=== PATIENT | female | born 1940 | race Caucasian/White ===

== ENCOUNTER 2016-11-24 06:10 | Observation (INO) | payer MEDICARE ==
--- NOTE | 2016-11-12 20:00 | HP ---
PREOPERATIVE HISTORY AND PHYSICAL: DATE OF ADMISSION/SURGERY: 11/24/16 PROCEDURE: Left total shoulder reverse. CHIEF COMPLAINT: Left shoulder pain. HISTORY OF PRESENT ILLNESS: Nelly is a 76-year-old female who presents to the clinic for ongoing le ft shoulder pain and limited range of motion due to severe osteoarthritis and rotator cuff tear. Sh bony has a history of prior rotator cuff repair. She has failed conservative measures and has therefor e agreed to undergo a left total shoulder reverse with Dr. Buckley on 11/24/16. PAST MEDICAL HISTORY: 1. Aortic stenosis. 2. Hypertension. 3. Dyspnea. 4. Asthma. 5. Obesity. 6. Obstructive sleep apnea. 7. Hypercholesterolemia. 8. GERD. 9. Congestive heart failure. 10. Osteoarthritis of the left shoulder. PAST SURGICAL HISTORY: 1. Cholecystectomy in 1987. 2. Tubal ligation in 1975. 3. Trigger finger release x3 in the . 4. Carpal tunnel release in 1979. 5. Eyelid surgery in 1997. 6. Right knee surgery in 2005. 7. Etta fundoplication in 2006. 8. Left knee replacement in 2011. 9. Right total knee replacement in 2013. 10. Cataract removal in 2013. 11. Cardiac catheterization in 2006. The patient denies prior problems with anesthesia. MEDICATIONS: 1. Symbicort 160/4.5 mcg per ACT 1 puff once a day. 2. Crestor 5 mg 1 by mouth every day at bedtime. 3. Amlodipine besylate 5 mg 1 by mouth once a day. 4. Gabapentin 300 mg 1 by mouth at bedtime. 5. Torsemide 10 mg 1 to 2 tabs by mouth daily as directed. 6. Compression stockings, knee high stockings 20 to 30 mm. 7. Fish oil 1 by mouth once a day at night. 8. Amoxicillin 500 mg 4 tabs 1 hour before dental work for invasive GI or procedures. 9. Verapamil HCL ER 180 mg 1 by mouth twice a day. 10. Montelukast 10 mg 1 tablet by mouth daily. 11. Aldactone 25 mg 2 tabs daily. ALLERGIES: HYDROCHLOROTHIAZIDE, PROVERA, ATENOLOL, CARDIZEM CD, CATAPRES, PERCOCET, LIPITOR, and HY DRALAZINE. FAMILY HISTORY: Positive for cancer, diabetes, and heart disease. Father has had coronary artery d isease with CABG. Sister had a history of DVT in her leg and placement of a vena cava filter. SOCIAL HISTORY: The patient lives with her . She has never smoked. She drinks 1 to 2 drink s of alcoholic drinks per night. She denies illegal drug use. REVIEW OF SYSTEMS: A 14-point review of systems was reviewed with the patient and positive for apolinar pheral edema, hypertension, chest pain, shortness of breath with exertion, GERD, constipation, easy bruising, high cholesterol, otherwise negative. Negative for history of DVT, PE, or bleeding disorde r. PHYSICAL EXAMINATION GENERAL: A well-developed, well-nourished 76-year-old female, in no acute distress. Alert and orie nted x3. Appropriate mood and affect. VITAL SIGNS: Height 60, weight 197. Pulse 63, blood pressure 147/71. BMI 38.5. HEENT: Normocephalic, atraumatic. PERRLA. Throat clear. NECK: Supple. PULMONARY: Lungs clear to auscultation bilaterally. No wheezing, rhonchi, or rales. CARDIO: She has got a systolic murmur and some peripheral edema. She has got regular rate and rhyt hm. ABDOMEN: Positive bowel sounds. Soft, nontender. NEUROLOGIC: Alert and oriented x3. Cranial nerves grossly intact. Sensation intact to light touch distally. MUSCULOSKELETAL: Left upper extremity: Skin is intact. No obvious deformity of the shoulder. Tend erness to palpation over the joint line. Forward flexion to 90, abduction to 45. External rotation to 35, internal rotation to the lateral hip. Pain with rotator cuff testing. +2 radial pulse. Sen sation intact to light touch distally. DIAGNOSTIC STUDIES: MRI of the left shoulder revealed abundant tenderness of the rotator cuff with no obvious full thickness tear and advanced glenohumeral arthritis. IMPRESSION: Left shoulder severe osteoarthritis and rotator cuff tear. PLAN: The patient is scheduled to undergo a left total shoulder reverse with Dr. Buckley on 11/24/16 . She has been cleared by her PCP and client service associate. She will return to the clinic 10 to 14 days po stoperative followup and suture removal. A prescription for [place] was e-prescribed to the patient's pharmacy for postoperative pain management because she is allergic to PERCOCET. She was instructed to get nzok-bep-wrlgime stool softener for prevention of opiate-[place] [id number]/[facility] #: [id number]
[~2016-11-24 06:10] MED LIST: Buffered Lidocaine 1% SYR 3ML* 3 ML/SYR SYRINGE INTRADERM ONE; Famotidine IV* 10 MG/ML 2 ML (20 mg) IV ONE; Metoclopramide TAB* 10 MG PO ONE
[2016-11-24] MEDS ORDERED: Metoclopramide TAB* 10 MG ONE (06:16)
[2016-11-24] MEDS ORDERED: Famotidine IV* 10 MG/ML 2 ML (20 mg) ONE (06:16)
[2016-11-24] MEDS ORDERED: ceFAZolin 2 GM PREMIX (*) 2 GM/50 ML BAG IVPB ONE (06:16)
[2016-11-24] MEDS ORDERED: KETAMINE HCL* 50 MG/ML 10 ML VIAL ONE (06:54)
[2016-11-24] MEDS ORDERED: Cisatracurium* 2 MG/ML MDV 10 ML ONE (06:54)
[2016-11-24] MEDS ORDERED: Ketorolac INJ* 30 MG/ML 1 ML VIAL ONE (06:54)
[2016-11-24] MEDS ORDERED: Dexamethasone IV* 4 MG/ML 1 ML (4 MG) ONE (06:54)
[2016-11-24] MEDS ORDERED: Midazolam* 1 MG/ML 5 ML VIAL (5 MG) ONE (06:54)
[2016-11-24] MEDS ORDERED: fentaNYL* 50 MCG/ML 5 ML VIAL (250 MCG VIAL) ONE (06:54)
[2016-11-24] MEDS ORDERED: Propofol* 10 MG/ML 20 ML BTL IV PUSH ONE (06:54)
[2016-11-24] MEDS ORDERED: Phenylephrine INJ* 10 MG/ML 1 ML VIAL (10 MG) ONE (06:54)
[2016-11-24] MEDS ORDERED: Ondansetron INJ* 2 MG/ML VIAL ONE (06:54)
[2016-11-24] MEDS ORDERED: Lidocaine 2% PF * 5 ML VIAL ONE (06:54)
[2016-11-24] MEDS ORDERED: ROPIVACAINE 5 MG/ML 30 ML BTL (0.5%) ONE (06:55)
[2016-11-24] MEDS ORDERED: Bupivacaine 0.25% SDV* 30 ML ONE (07:29)
[2016-11-24] MEDS ORDERED: EPHEDrine (Pressors)* 50 MG/ML VIAL ONE (07:53)
[2016-11-24] MEDS ORDERED: Glycopyrrolate IV* 0.2 MG/ML 1 ML VIAL ONE (07:57)
[2016-11-24] MEDS ORDERED: HYDROmorphone INJ* 1 MG/ML CARPUJECT SYRINGE IV PRN (09:21)
[2016-11-24] MEDS ORDERED: Ondansetron INJ* 2 MG/ML VIAL IV PRN ×2 (09:21→10:27)
[2016-11-24] MEDS ORDERED: DiMENhydriNATE IV* 50 MG/ML VIAL IV PUSH PRN (09:21)
[2016-11-24] MEDS ORDERED: HYDROmorphone INJ* 1 MG/ML CARPUJECT SYRINGE ONE (09:47)
[2016-11-24] MEDS ORDERED: fentaNYL* 50 MCG/ML 2 ML VIAL (100 MCG VIAL) ONE ×2 (09:47→10:37)
[2016-11-24] MEDS ORDERED: Acetaminophen TAB* 325 MG PO PRN (10:27)
[2016-11-24] MEDS ORDERED: diPHENhydraMINE IV* 50 MG/ML 1 ml VIAL (BENADRYL) IV PRN (10:27)
[2016-11-24] MEDS ORDERED: Temazepam CAP* 15 MG PO PRN (10:27)
[2016-11-24] MEDS ORDERED: Morphine INJ* 2 MG/ML 1 ML CARPUJECT IV PRN (10:27)
[2016-11-24] MEDS: fentaNYL* 50 MCG/ML 2 ML VIAL (100 MCG VIAL) IV PRN ×3 (10:38→11:51)
[2016-11-24] MEDS ORDERED: HYDROcodone/ACETAMIN 5-325 MG* 1 TAB PO PRN (10:38)
[2016-11-24] MEDS ORDERED: Enoxaparin(*) 30 MG/0.3 ML SYR SUBCUT SCH (11:00)
--- NOTE | 2016-11-24 11:17 | RAD ---
INDICATION: Total left shoulder replacement surgery postoperative study. COMPARISON: Comparison is made with a prior x-ray study of the left shoulder from December 30, 2015. TECHNIQUE: 3 views of the left shoulder were obtained. FINDINGS: The patient is status post total left shoulder replacement surgery with a reversed polarity prosthesis. The bones and prostheses are in normal alignment. IMPRESSION: STATUS POST TOTAL LEFT SHOULDER REPLACEMENT SURGERY.
[2016-11-24] MEDS: HYDROcodone/ACETAMIN 5-325 MG* 1 TAB PO PRN (15:05)
[2016-11-24] MEDS: ceFAZolin 1 GM in Dextrose (*) 1 GM/50 ML BAG IVPB SCH (17:22)
[2016-11-24] MEDS ORDERED: CALCIUM MAGNESIUM PO SCH (18:00)
[2016-11-24] MEDS ORDERED: [UNRECOGNIZED DRUG - OTHER] PO SCH (18:00)
[2016-11-24] MEDS ORDERED: CMCS: Rosuvastatin (NF) 5 MG TAB PO SCH (18:00)
[2016-11-24] MEDS ORDERED: VITAMIN D PO SCH (18:00)
[2016-11-24] MEDS ORDERED: Montelukast Sodium TAB* 10 MG PO SCH (18:00)
[2016-11-24] MEDS: Verapamil SR CAP* 180 MG PO SCH (20:33)
[2016-11-24] MEDS: Ferrous Sulfate TAB* 325 MG PO SCH (20:33)
[2016-11-24] MEDS: Docusate CAP* 100 MG PO SCH (20:34)
[2016-11-24] MEDS ORDERED: Gabapentin CAP(*) 300 MG PO SCH (21:00)
--- NOTE | 2016-11-24 22:57 | CONS ---
HOSPITAL MEDICINE CONSULTATION REPORT: DATE OF CONSULT: 11/24/16 ATTENDING PHYSICIAN: Dr. Summer Buckley. CONSULTING PHYSICIAN: Dr. Srinivas Silverio (dictation provided by Ya Vinson NP). REASON FOR CONSULT: Medical co-management for a patient with reverse left shoulder surgery. HISTORY OF PRESENT ILLNESS: Ms. Burns is a 76-year-old female with a past medical history of bqpp-ol-iowxfgdo aortic stenosis; obstructive sleep apnea, on CPAP; chronic diastolic congestive heart failure, who presents to the hospital on 11/24/16 with plan for a left total shoulder reverse with Dr. Buckley. Please see the dictated H and P from Dr. Buckley for complete details. In brief, the patient had ongoing left shoulder pain due to severe osteoarthritis and had planned for surgery today. Ms. Burns states that prior to coming in to surgery, she has been feeling well. She did have an episode of bronchitis about 6 weeks ago, but states she recovered well from that with no acute symptoms currently. She also has a history of aortic stenosis which is mild as well as hypertension and diastolic congestive heart failure. For these issues, she has followed with Dr. Slaughter, who saw her preoperatively. He notes that her ejection fraction is 60% to 65% and that she has diastolic dysfunction with cfzi-wn-ykjajsue . I refer you to his note for complete details, but he does state that there are some adjustments to her medications recently to manage her volume status, sodium levels, and blood pressure. He thinks that with these changes, her dyspnea on exertion has improved. In addition to this, she has obstructive sleep apnea and does use CPAP and has brought it today. She has asthma, but states that she never needs to use her albuterol inhaler. PAST MEDICAL HISTORY: 1. Cvzb-mi-lzcprqih aortic stenosis. 2. Hypertension. 3. Asthma. 4. Obesity. 5. Obstructive sleep apnea, on CPAP. 6. Hyperlipidemia. 7. GERD. 8. Diastolic congestive heart failure, chronic. 9. Osteoarthritis of the left shoulder. PAST SURGICAL HISTORY: 1. Cholecystectomy in 1997. 2. Tubal ligation in 1975. 3. Trigger finger release x3 in the . 4. Carpal tunnel release, 1979. 5. Eyelid surgery, 1997. 6. Right knee surgery, 2005. 7. Etta fundoplication, 2006. 8. Left knee replacement, 2011. 9. Right total knee replacement, 2013. 10. Cataract removal, 2013. 11. Cardiac cath in 2006. The patient states there was no intervention at that time. MEDICATIONS: Outpatient are: 1. Symbicort 160/4.5 mcg once a day. 2. Amlodipine 5 mg p.o. q.a.m. 3. Calcium with D 1 cap p.o. q.p.m. 4. Gabapentin 100 mg 1 to 3 caps p.o. bedtime. 5. Singulair 10 mg p.o. q.p.m. 6. Rosuvastatin 5 mg q.p.m. 7. Spironolactone 25 mg p.o. daily. 8. Torsemide 10 mg p.o. daily. 9. Verapamil 180 mg p.o. b.i.d. ALLERGIES: To CLONIDINE, HYDRALAZINE, MEDROXYPROGESTERONE, OXYCODONE, ATORVASTATIN, ATENOLOL, VERAPAMIL, HYDROCHLOROTHIAZIDE, and CARDIZEM. FAMILY HISTORY: There is report that father had coronary artery disease with CABG. Has a sister who has had a history of DVT. SOCIAL HISTORY: The patient lives with her . There is no report of smoking. She drinks alcohol occasionally. She denies any illegal drug use. She states her , Yimi, is her healthcare proxy. REVIEW OF SYSTEMS: A 14-point review of systems was completed with Ms. Burns and all those mentioned above are negative. PHYSICAL EXAM: Vital Signs: Temperature 97.5, pulse rate 74, respiratory rate 18, O2 saturation 100% on room air, blood pressure 152/58. General: Ms. Burns is lying in the bed. She is in no acute distress. She is calm and cooperative to my examination. Neuro: She is alert, she is oriented x3. She moves all extremities equally. There is no facial asymmetry or focal weakness. Extraocular movements are intact. Heart: S1, S2. No murmur, rub, or gallop and regular. Lungs are clear to auscultation bilaterally with no accessory muscle use and good aeration. The abdomen is soft and nontender. Bowel sounds positive x4. Extremities: The patient has a sling to the left arm. There is no swelling in the bilateral lower extremities. Skin is intact and the incision site was not assessed today. LABORATORY DATA: Preoperatively, WBC on 11/12/16, 8.1, hemoglobin 14.3, hematocrit 42, platelet count 233. Sodium 132, potassium 3.9, chloride 95, serum bicarbonate 28, BUN 18, creatinine 1.00, glucose 91. ASSESSMENT AND PLAN: Ms. Burns is a 76-year-old female with past medical history of rcre-iq-crkaqwtw aortic stenosis, hypertension, diastolic congestive heart failure, and obstructive sleep apnea, who presents today to the hospital for an elective left reverse shoulder surgery with Dr. Buckley. Our recommendations are as follows: 1. Postop day #0 status post shoulder surgery: Management will continue to be per Orthopedics. The patient will have pain medications p.r.n. Hemoglobin will be monitored. She will have a bowel regimen and therapy as per Orthopedics. 2. Rdun-hp-nmabovus aortic stenosis: I appreciate the note from Dr. Slaughter and he notes that the patient should avoid any excess after load reducing agents and that her volume status should be monitored closely. At this point, she appears euvolemic, but we certainly be vigilant to any fluid overload and use diuretics as needed. 3. Diastolic congestive heart failure: Again, the patient appears euvolemic at this point. She is on torsemide and we will continue that for now, but we will be monitoring her labs closely. 4. Obstructive sleep apnea: Continue CPAP. 5. Hypertension: Continue amlodipine, torsemide, verapamil, and Aldactone, and typically would hold these diuretics, but I think given her history, it will be important to continue those and monitor her labs closely. 6. Asthma: Continue montelukast and Symbicort. 7. DVT prophylaxis: Per Ortho. SCDs have been ordered as well as Lovenox. 8. Code status is full code. 9. Disposition per Ortho. TIME SPENT: Approximately 60 minutes was spent on the consultation of this patient, more than half time spent with the patient at the bedside reviewing the events leading up to this hospitalization, performing the physical examination, and reviewing [place] [id number]/[facility] #: [id number] PARUL
[2016-11-25] MEDS: ceFAZolin 1 GM in Dextrose (*) 1 GM/50 ML BAG IVPB SCH ×2 (00:37→07:29)
--- NOTE | 2016-11-25 02:03 | OP ---
DATE OF OPERATION: 11/24/16 - ROOM #335 DATE OF : 44 SURGEON: Summer Buckley MD ASSISTANTS: 1. SIMIN Amato 2. SIMIN Nicholas ANESTHESIOLOGIST: Noé Edgar MD ANESTHESIA: General. PRE-OP DIAGNOSIS: Left shoulder advanced glenohumeral arthritis with rotator cuff insufficiency. POST-OP DIAGNOSIS: Left shoulder advanced glenohumeral arthritis with rotator cuff insufficiency. OPERATIVE PROCEDURE: Left reverse shoulder arthroplasty and open biceps tenodesis. COMPLICATIONS: None. ESTIMATED BLOOD LOSS: 200 cc. OUTPUTS: Include 1 drain which will be taken out postop day #1. IMPLANTS USED: Tornier Aequalis reversed 2 centered Glenosphere size 36 mm with a 25 mm threaded base plate with a length of 25, Aequalis size 4B stem with a centered reverse tray, and a size 9 mm poly. INDICATIONS: Nelly is a 76-year-old female with persistent left shoulder pain that is refractory to conservative management. She has advanced glenohumeral arthritis, bone on bone arthritis with some rotator cuff arthropathy indicated on the MRI. Risks and benefits of surgery were discussed at length and included but are not limited to bleeding, infection, damage to nerves, vessels, surrounding structures, fracture, stiffness, persistent pain, incomplete relief of symptoms, need for further surgery, dislocation, risks of anesthesia, postoperative hematoma, as well as DVT. She has elected to proceed. After obtaining medical preoperative risk assessment, she has been optimized for surgery. DESCRIPTION OF PROCEDURE: The patient was greeted in the preoperative area by the attending surgeon. The correct extremity was marked, consent was confirmed. The patient was brought back to the operating suite. She was placed in supine position on the operating table. She then underwent general anesthesia endotracheal intubation after which a Buchanan catheter was placed. She was carefully positioned on the bed. All bony prominences were padded. The left arm was then examined. She was able to be passively forward flexed to about 130 degrees, externally rotated to about 35 degrees, abducted to about 90 degrees. The left shoulder was prepped and draped in the usual sterile fashion , beginning with a pre-scrub of chlorhexidine soap and alcohol wipe and a final prep of ChloraPrep. After appropriate surgical pause indicating side and site of procedure, administration of antibiotics, a deltopectoral incision was made through the skin. The soft tissues were carefully dissected to expose the deltoid. The fat stripe was identified and the cephalic vein was identified. At this point, the dissection was taken bluntly in between the interval between the pec and the deltoid and the cephalic vein was taken laterally. A blunt Hohmann was placed just superior to the coracoid. Kolbel retractors were used for deltopectoral retraction which exposed the anterior aspect of the shoulder. There was abundant synovitis that was apparent. There were large areas of cyst, one was in the biceps tendon sheath itself. The clavipectoral fascia was carefully released. The short head of the biceps was identified and blunt dissection was done underneath to allow for subscap release. The pec was then released in the proximal aspect about 1 cm. At this point, the biceps was then tenodesed using a heavy nonabsorbable suture. The biceps was then tenotomized. It was followed up into the groove. The cysts were carefully decompressed. There was abundant synovitis that was apparent. The 3 sutures were identified and Bovie'd. The large soft tissue mass was carefully removed and sent for pathology. The subscap was identified and carefully released in its entirety off the lesser tuberosity. This was then tagged for later retraction. As this was done, there was gentle external rotation of the arm. Portions of the supraspinatus were still intact. These were carefully released and some portions were protected. The shoulder was then carefully dislocated. Prior to dislocation, the CA ligament was released as well. The entire head was exposed. It was found to have complete absence of cartilage. There were inferior osteophytes and the head was slightly misshapen. The neck cut was then marked out and then the sagittal saw was used to make the cut. The cut was free handed. The cut was slightly more steep than anticipated, so the excess bone had to be removed using the rongeur. The canal was then carefully accessed using the canal finder. The sizing guides were used initially a size 4 was identified. The trial stems were then rasped and impacted into place. A size 4 was found to have a good fit. This was then coplaned to remove any excess bone and bony edges. This had a good fit. Once the humeral portion was completed, attention was directed to the glenoid. The protected cap was placed on the humeral stem and the humerus was then placed posteriorly in the shoulder. The glenoid was then exposed, initially using a posterior retractor as well as a blunt Hohmann. The biceps stump was identified and sharply removed. The glenohumeral ligaments were then carefully released on the undersurface of the subscap with care not to drift anteriorly, thus compromising the vessels. As the subscap was more mobilized, it was then placed back into the wound and a neck retractor was used to expose the anterior aspect of the glenoid. Using a needle-tip Bovie at this point, the excess labrum and soft tissues were carefully removed with tension on the soft tissues inferiorly to protect the neuro-vascular structures. The soft tissue was carefully elevated to expose the whole aspect of the glenoid. After this was done, a provisional cross-marking was done to gretel the superior/ inferior and the anterior/posterior aspects of the glenoid. The size 25 mm guide was then placed on the inferior aspect approximately 10 to 11 mm proximal from the inferior aspect of the glenoid. The pin was drilled and was found to fit appropriately. This was then over-reamed with a 25 mm reamer and then hand reamed for a 36 mm Glenosphere. The bone quality was not optimal and the osteophytes in the anterior aspect of the glenoid were then carefully removed. At this point, the large 8 mm drill peg was then drilled using the previously drilled pin as a cannulation system. Then, the 6.5 mm drill bit was drilled to about a depth of 25 mm. This was then measured. Then a size 25 mm threaded base plate was chosen. This screw hole was tapped and then the implant was placed with excellent purchase. The 4 locking screws were drilled and then filled, first beginning with the superior and inferior ones and then finally the anterior and posterior ones. Excellent purchase was obtained. The Glenosphere was then brought into the field and carefully impacted into position , and then the set screw was used to best worker with a good fit. At this point, the retractors were removed and the attention was directed to the humerus. The stem was checked again and it was found to be somewhat loose. Therefore, it was sequentially tested again beginning with a size 3 stem and then to a size 4. This allowed for again a press-fit. Any excess bone was removed. The centered base plate was then placed. After this, a size 6 mm poly was used. The shoulder was reduced and taken through a range of motion. There was slightly more shuck than I appreciated, therefore, a size 9 poly was then trialed and this was found to have excellent shuck and good fit. She was able to be forward flexed to about 150, externally rotated to 80 degrees, abduct easily to 90 degrees. At this point, the final stem was chosen, a size 4B with a centered tray, and a 9 mm poly. The implants were prepared at the back table by the attending surgeon. Three drill holes were placed into the humeral shaft for subscap repair after final implants were placed. Final implants were impacted in place and then brought in and gently impacted with good purchase into the humerus. After this was complete, the shoulder was reduced. The wound was then copiously irrigated with sterile saline, after which the subscap was repaired by passing through these brief predrilled #5 Ethibond sutures through the subscap in a horizontal mattress configuration. These were tied down. This allowed for external rotation of approximately 50 degrees. The wound was copiously irrigated again. At this point, a drain was placed and then the wound was irrigated once more. Then, the deltopectoral interval was closed with heavy nonabsorbable suture. The wound was irrigated yet again and finally the wound was closed in layers with 2-0 Vicryl and 3-0 Monocryl. Sterile dressings were applied. 30 cc of 0.25% Marcaine were injected all around the incision. She was placed in a Cryo/Cuff and in a sling. She was awoken from anesthesia and transferred to PACU in stable condition. POSTOPERATIVE PLAN: She will be admitted for a day for pain control as well as watching the drain. She did not obtain a block, so we will monitor her pain very carefully. She will obtain x-rays in the postanesthesia area. She will receive 24 hours of perioperative antibiotics. Buchanan was discontinued on postop #1. DVT prophylaxis will be heparin and SCDs while inhouse, but she will go home due to no previous personal or family history. CC: PCP, Liliana Dickerson MD* [id number]/[facility] #: [id number] PARUL
[2016-11-25] MEDS: HYDROcodone/ACETAMIN 5-325 MG* 1 TAB PO PRN ×2 (02:58→10:28)
[2016-11-25 07:02] LABS: Hematocrit 31 % (35-47); Hemoglobin 10.8 g/dl (12.0-16.0)
[2016-11-25 07:17] LABS: BUN/Creatinine Ratio 16.7 (8-20); Calcium 8.7 mg/dL (8.6-10.3); EGFR African American 101.8 (>60); EGFR Non-African American 79.2 (>60); Potassium 4.2 mmol/L (3.5-5.0)
[2016-11-25] MEDS ORDERED: Vitamin THERAPEUTIC TAB PO SCH (09:00)
[2016-11-25] MEDS ORDERED: Spironolactone TAB* 25 MG PO SCH (09:00)
[2016-11-25] MEDS ORDERED: amLODIPine TAB* 5 MG PO SCH (09:00)
[2016-11-25] MEDS ORDERED: Enoxaparin(*) 30 MG/0.3 ML SYR SUBCUT SCH (09:00)
[2016-11-25] MEDS ORDERED: Torsemide TAB* 20 MG PO SCH (09:00)
[2016-11-25] MEDS ORDERED: Mometasone/Formoter 200/5 MDI INH SCH (09:00)
[2016-11-25] MEDS: Docusate CAP* 100 MG PO SCH (09:17)
[2016-11-25] MEDS: Ferrous Sulfate TAB* 325 MG PO SCH (09:17)
[2016-11-25] MEDS: Verapamil SR CAP* 180 MG PO SCH (09:18)
--- NOTE | 2016-11-25 09:46 | PN ---
Progress Note - Progress Note SOAP: Subjective: []Patient seen at bedside. Working with PT and OT. Pain well managed. Hopes to go home this afternoon. Objective: [] Vital Signs Temp 97.9 F 11/25/16 07:36 Pulse 63 11/25/16 07:36 Resp 16 11/25/16 07:36 BP 150/65 11/25/16 07:36 Pulse Ox 94 11/25/16 07:36 Intake & Output 11/24/16 11/25/16 11/25/16 18:59 06:59 18:59 Intake Total 1915 1837 105 Output Total 100 1500 200 Balance 1815 337 -95 Intake: IV Fluids 1155 917 105 LR 1100 NS (0.9%) 867 50 abx 55 Oral 760 920 Output: Hemovac Amount #1 250 Buchanan 100 1250 200 Laboratory Results - last 24 hr 11/25/16 11/25/16 06:53 06:53 Hgb 10.8 L Hct 31 L Sodium 125 L Potassium 4.2 Chloride 95 L Carbon Dioxide 24 Anion Gap 6 BUN 12 Creatinine 0.72 Est GFR ( Amer) 101.8 Est GFR (Non-Af Amer) 79.2 BUN/Creatinine Ratio 16.7 Glucose 171 H Calcium 8.7 Left shoulder with some scant bloody drainage around her drain, otherwise dressing dry moving fingers well, full sensation, neuro intact Hemovac drain pulled, tip intact Assessment: []s/p Left reverse total shoulder arthroplasty POD #1 Plan: []PT/OT today Discharge home today after lunch Follow up as scheduled with Dr. Buckley
--- NOTE | 2016-11-25 12:05 | PN ---
Progress Note - Progress Note Note: pt seen and examined this AM. doing well. pre op pain is gone. some soreness. drain in place. afebrile. NAD, AAOx3. on O2. left shoulder dressing in place. SILT grossly distally. 2+ radial pulse. able to flex/ext digits. A/P s/p L shoulder reverse d/c drain today. follow labs. PT today. no active ROM. passive FF to 90, abd to 90, ER to 45. potential d/c today when medically stable
[2016-11-25 13:56] VITALS: BP 161/56
--- NOTE | 2016-11-26 01:52 | DS ---
DISCHARGE SUMMARY: DATE OF ADMISSION: 11/24/16 DATE OF DISCHARGE: 11/25/16 ATTENDING PHYSICIAN: Summer Buckley MD ADMISSION DIAGNOSIS: Left shoulder advanced glenohumeral arthritis with rotator cuff insufficiency. DISCHARGE DIAGNOSIS: Left shoulder advanced glenohumeral arthritis with rotator cuff insufficiency. SURGERY PERFORMED: Left reversed shoulder arthroplasty and open biceps tenodesis. HOSPITAL COURSE: The patient is a 76-year-old female with persistent left shoulder pain due to advanced glenohumeral [id number] osteoarthritis and rotator cuff arthropathy. The patient failed conservative management and elected to proceed with surgical intervention. She was taken to the operating room under the care of Dr. Buckley on the date of 11/24/16 for the aforementioned procedure. The patient tolerated the procedure well and left the operating room in stable condition. Postoperatively, she progressed satisfactorily with her PT and OT goals. Her pain was well managed and she had no medical problems postoperatively. Her pain was well managed with oral pain medications and she felt stable for discharge home. Her condition medically and orthopedically was stable and she was discharged on the day of 11/25/16. PHYSICAL EXAMINATION: The patient is alert and oriented x3. She is in no significant pain. Her shoulder dressings were removed with no noted drainage. Her Hemovac drain was discontinued on postoperative day #1 without any difficulties. Her neurovascular status is intact in the left upper extremity. Her sling is comfortable. DISCHARGE MEDICATIONS: The patient will continue with her regular home medications. She is prescribed [place] 5/325 one to two tabs p.o. q.3 hours p.r.n. pain. She will follow up in the office as scheduled with Dr. Buckley. If the patient notices any increased pain in the shoulder, swelling, redness, drainage, any noted fever or chills, the office will be contacted prior to her scheduled appointment. SIMIN LADD [id number]/CPS #: [id number] MTDD
== END 2016-11-25 14:20 | disposition home or self-care (01) ==
LOC: INTOOBSV 06:10 → AA 06:10 → SSU 12:39
PROVIDERS: ADMIT Orthopaedic Surgery; ATTEND Orthopaedic Surgery
PROC: 0RUK0JZ Supplement Left Shoulder Joint with Synthetic Substitute, Open Approach (ICD-10-PCS; principal; 2016-11-24 07:30)
DX: M19.012 Primary osteoarthritis, left shoulder (principal); I35.0 Nonrheumatic aortic (valve) stenosis; J45.909 Unspecified asthma, uncomplicated; E66.9 Obesity, unspecified; G47.33 Obstructive sleep apnea (adult) (pediatric); E78.00 Pure hypercholesterolemia, unspecified; K21.9 Gastro-esophageal reflux disease without esophagitis; I11.0 Hypertensive heart disease with heart failure; I50.9 Heart failure, unspecified; Z88.8 Allergy status to other drugs, medicaments and biological substances; Z79.899 Other long term (current) drug therapy
CPT/HCPCS: 36415; 80048; 85014; 85018; 88304; 88311; A9270-GY; C1713; C1776; G0378; G8978-GP-CH; G8979-GP-CH; G8980-GP-CH; G8987-GO-CK; G8988-GO-CJ; J0690; J1100; J1170; J1650; J1885; J2250; J2405; J2704; J2795; J3010

== ENCOUNTER 2018-08-11 11:20 | Inpatient (IN) | payer MEDICARE ==
--- NOTE | 2018-08-11 11:44 | ED ---
Shortness of Breath - HPI Summary HPI Summary: Patient is a 77 y/o F w/ c/o SOB and LE edema. She states that Sx onset two weeks ago and have progressively worsened. Patient reports that she went to see Dr. Slaughter two days ago, blood work was done and her warfarin was increased. Patient was notified this morning that she had an elevated d-dimer and that she should come to the ED. She states she is capable of ambulating but notes it will exacerbate her SOB. Chest pain, cough, and fever are denied. On triage, pain is denied. Nothing else is noted to aggravate/alleviate Sx. Home medications and allergies are reviewed. - History of Current Complaint Chief Complaint: EDShortnessOfBreath Hx Obtained From: Patient Onset/Duration: Lasting Weeks - two weeks ago, Still Present, Worse Since - progressively Timing: Constant Current Severity: None - pain denied Aggrevating Factors: Other - ambulation Alleviating Factors: Nothing Associated Signs & Symptoms: Edema - LE - Allergy/Home Medications Allergies/Adverse Reactions: Allergies Allergy/AdvReac Type Severity Reaction Status Date / Time atenolol Allergy Coughing Verified 08/11/18 12:59 atorvastatin [From Lipitor] Allergy Leg Cramps Verified 08/11/18 12:59 clonidine Allergy Rash Verified 08/11/18 12:59 diltiazem Allergy Coughing Verified 08/11/18 12:59 hydralazine Allergy Unknown Verified 08/11/18 12:59 Reaction Details hydrochlorothiazide Allergy Coughing Verified 08/11/18 12:59 medroxyprogesterone Allergy Unknown Verified 08/11/18 12:59 [From Provera] Reaction Details oxycodone Allergy Itching Verified 08/11/18 12:59 rosuvastatin [From Crestor] Allergy Leg Cramps Verified 08/11/18 12:59 verapamil [From Covera-HS] Allergy Coughing Verified 08/11/18 12:59 PMH/Surg Hx/FS Hx/Imm Hx Endocrine/Hematology History: Denies: Hx Diabetes, Hx Sickle Cell Disease Cardiovascular History: Reports: Hx Angina, Hx Cardiomegaly, Hx Hypercholesterolemia, Hx Hypertension, Hx Valvular Heart Disease - Aortic stenosis, Other Cardiovascular Problems/Disorders - heart murmur Denies: Hx Pacemaker/ICD Respiratory History: Reports: Hx Asthma - QUESTIONABLE, Hx Sleep Apnea - current CPAP user, Other Respiratory Problems/Disorders - Chronic Cough GI History: Reports: Hx Gastroesophageal Reflux Disease - NOT ON DAILY MEDS HAD SURGERY, Hx Hiatal Hernia - had surgery for this over 10 years ago History: Reports: Hx Renal Disease - abnormal gfr Musculoskeletal History: Reports: Hx Arthritis - KNEES HANDS FEET, Hx Tendonitis - arms bi-lat Denies: Hx Osteoporosis Sensory History: Reports: Hx Cataracts - surgery about 3 yrs ago both eyes, Hx Contacts or Glasses - GLASSES Denies: Hx Hearing Aid Opthamlomology History: Reports: Hx Cataracts - surgery about 3 yrs ago both eyes, Hx Contacts or Glasses - GLASSES Psychiatric History: Reports: Hx Depression Denies: Hx Panic Disorder - Cancer History Hx Chemotherapy: No Hx Radiation Therapy: No - Surgical History Surgery Procedure, Year, and Place: 1949 TONSILECTOMY, TUBAL LIGATION 1975 [facility], 1987 GALLBLADDER REMOVED [facility], THREE TRIGGER FINGER -LUZ CARPAL TUNNEL [facility],EYE LIFT [facility] ,RT KNEE ARTHROSCOPY [facility],HIATAL HERNIA- ESOPHAGEAL WRAP [facility]-BILATERAL KNEE REPLACEMENT 08/30/12 AND 02/2014-BILATERAL CATARACTS 2014 Hx Anesthesia Reactions: Yes - HORID HEADACHE SEVERAL WKS AFTER BTL Infectious Disease History: No Infectious Disease History: Reports: Hx Hepatitis Denies: Hx of Known/Suspected MRSA, Traveled Outside the [place] in Last 30 Days - Family History Known Family History: Positive: Hypertension - mother, sisters - Social History Alcohol Use: Daily Alcohol Amount: 2/DAY Substance Use Type: Reports: None Smoking Status (MU): Never Smoked Tobacco Have You Smoked in the Last Year: No Review of Systems Negative: Fever Negative: Chest Pain Positive: Shortness Of Breath. Negative: Cough Positive: Edema - LE All Other Systems Reviewed And Are Negative: Yes Physical Exam - Summary Physical Exam Summary: Appearance: Well appearing, no pain distress Skin: warm, dry, reflects adequate perfusion Head/face: normal Eyes: EOMI, TEJAL ENT: normal Neck: supple, non-tender Respiratory: CTA, breath sounds present Cardiovascular: tachycardia, pulses symmetrical Abdomen: non-tender, soft Bowel: present Musculoskeletal: normal, strength/ROM intact Neuro: normal, sensory motor intact, A&Ox3 Triage Information Reviewed: Yes Vital Signs On Initial Exam: Initial Vitals Temp Pulse Resp BP Pulse Ox 99.2 F 110 20 171/84 93 08/11/18 11:21 08/11/18 11:21 08/11/18 11:21 08/11/18 11:21 08/11/18 11:21 Vital Signs Reviewed: Yes Diagnostics - Vital Signs Vital Signs Temp Pulse Resp BP Pulse Ox 08/11/18 11:21 99.2 F 110 20 171/84 93 - Laboratory Result Diagrams: 08/11/18 13:35 08/11/18 13:35 Lab Statement: Any lab studies that have been ordered have been reviewed, and results considered in the medical decision making process. - CT CTA CHEST/THORAX CT Interpretation Completed By: Radiologist Summary of CT Findings: CTA CHEST/THORAX IMPRESSION: 1. LARGE BILATERAL PULMONARY EMBOLI. 2. RIGHT VENTRICULAR ENLARGEMENT. THIS REPORT WAS REVIEWED BY ED PHYSICIAN. - EKG 1153 Cardiac Rate: NL - rate of 93 bpm EKG Rhythm: Sinus Rhythm Summary of EKG Findings: EKG showed sinus rhythm with rate of 93, right bundle branch block. Re-Evaluation - Re-Evaluation First Eval Re-Evaluation Time: 12:28 Comment: 1228 Dr. Bazan office was called, Dr. Slaughter is not in. Patient's old EKG will be faxed over. Second Eval Re-Evaluation Time: 13:42 Comment: Discussed ICU admission, patient is agreeable Course/Dx - Course Course Of Treatment: Patient is a 77 y/o F w/ c/o SOB and LE edema. She states that Sx onset two weeks ago and have progressively worsened. Patient reports that she went to see Dr. Slaughter two days ago, blood work was done and her warfarin was increased. Patient was notified this morning that she had an elevated d-dimer and that she should come to the ED. She states she is capable of ambulating but notes it will exacerbate her SOB. Chest pain, cough, and fever are denied. On physical exam, patient is noted to be tachycardic. EKG showed sinus rhythm with rate of 93, right bundle branch block. Bloodwork/UA was obtained. CTA CHEST/THORAX IMPRESSION: 1. LARGE BILATERAL PULMONARY EMBOLI. 2. RIGHT VENTRICULAR ENLARGEMENT. Dr. Arzate was called, patient's case was discussed. Dr. Arzate states he will come to ED to evaluate patient. Dr. Arzate arrived in ED, discussed patient's case and plan of treatment. Heparin drip to be started, echocardiogram ordered. Dr. Arzate and Dr. Flores discussed patient's case. Dr. Arzate states he will admit patient to ICU, TPA to be given. Patient is agreeable with admission to ICU. - Diagnoses Differential Diagnosis/HQI/PQRI: Positive: Asthma, CHF, Pneumonia, Pneumothorax , Pulmonary Embolism Provider Diagnoses: Bilateral pulmonary embolism - Physician Notifications Discussed Care of Patient With: Justyn Castellanos Time Discussed With Above Provider: 13:07 Instructed by Provider To: Other - Dr. Castellanos called to communicate the results of CTA chest/thorax at 1307. 1314 - Dr. Arzate was called, patient's case was discussed. Dr. Arzate states he will come to ED to evaluate patient. 1316 - Dr. Bull was called with regards to the patient's case, he states to call back after Dr. Arzate evaluates patient 1320 - Dr. Arzate arrived in ED, discussed patient's case and plan of treatment. Heparin drip to be started, echocardiogram ordered. 1330 - Dr. Arzate discussed his evaluation of patient, Dr. Flores to be contacted. 1334 - Dr. Arzate and Dr. Flores discussed patient 's case. 1340 - Dr. Arzate states he will admit patient to ICU, TPA to be given. - Critical Care Time Critical Care Time: 30-74 min - 30 minutes Discharge - Sign-Out/Discharge Documenting (check all that apply): Patient Departure - admit - Discharge Plan Condition: Good Disposition: ADMITTED TO [facility] - Billing Disposition and Condition Condition: GOOD Disposition: Admitted to [facility] - Attestation Statements Document Initiated by Dieter: Yes Documenting Scribe: ANA GARCIA Provider For Whom Dieter is Documenting (Include Credential): PEMA ISABEL MD Scribe Attestation: ANA Dangelo , scribed for PEMA ISABEL MD on 08/11/18 at 1644. Scribe Documentation Reviewed: Yes Provider Attestation: The documentation as recorded by the ANA [place] accurately reflects the service I personally performed and the decisions made by me, PEMA ISABEL MD
[2018-08-11] MEDS ORDERED: Aspirin 81 mg CHEW TAB* 81 MG TAB.CHEW PO ONE (12:28)
[2018-08-11] MEDS ORDERED: Iodixanol* (CONTRAST) 320 MG/ML 100 ML SDV IV ONE (12:36)
[2018-08-11 13:19] LABS: Urine Appearance Cloudy; Urine Blood Negative (Negative); Urine Color Yellow; Urine Ketones Negative (Negative); Urine Protein Negative (Negative); Urine Specific Gravity 1.005 (1.010-1.030); Urine Urobilinogen Negative (Negative)
[2018-08-11] MEDS ORDERED: Heparin DRIP 25,000 UNITS(*) 25,000 UNITS/500 ML BAG ONE (13:24)
[2018-08-11] MEDS ORDERED: Heparin VIAL(*) 5000 UNITS/ML VIAL (FIVE THOUSAND) IV PRN (13:35)
[2018-08-11] MEDS ORDERED: Alteplase* 100 MG in PREMIX* 100 ML IVPB ONE (13:40)
[2018-08-11] MEDS ORDERED: Alteplase* 100 MG VIAL ONE (13:41)
[2018-08-11] MEDS: Heparin DRIP 25,000 UNITS(*) 25,000 UNITS/500 ML BAG IV SCH (13:48)
[2018-08-11 14:02] LABS: EGFR Non-African American 53.4 (>60)
[2018-08-11 14:14] LABS: Hematocrit 35 % (35-47); Hemoglobin 12.4 g/dl (12.0-16.0); Mean Corpuscular HGB Conc 35 g/dl (31-36); Mean Corpuscular Hemoglobin 32 pg (27-31); Mean Corpuscular Volume 92 fL (80-97); Mean Platelet Volume 8.1 fL (7.4-10.4); Platelet Count 197 10^3/ul (150-450); Red Blood Count 3.85 10^6/ul (4.00-5.40); Red Cell Distribution Width 14 % (10.5-15); White Blood Count 8.3 10^3/ul (3.5-10.8)
--- NOTE | 2018-08-11 15:57 | ECHO ---
Patient: AMPARO BYRNE [facility] Rec#: [id number] : 1940 Date: 08/11/2018 Age: 77y Height: 152 cm / 59.8 in Weight: 90.7 kg / 199.9 lbs Sex: F BSA: 1.9 Room#: ED 3 Admit Date#: 08/11/2018 Type: Inpatient Referring: Eddie Dobbs Reading: Jill Flores MD [employer] Worker: Nancy Caldera RN RDCS CC: Maryjo Dickerson MD CC: Oziel Slaughter MD Transthoracic Echocardiogram Indication: Pulmonary embolism BP: 161/89 HR: 84 Rhythm: NSR Findings History: HTN, HLD, , LUZ MARIA. This is a LIMITED exam to assess RV function performed in the ED with Dr. Flores and Dr. Pradip Arzate at the bedside. Technical Comments: The study quality is fair. The study is technically limited due to patient body habitus. Completed at 1410. Left Ventricle: The left ventricular chamber size is normal. Moderate concentric left ventricular hypertrophy is observed. Global left ventricular wall motion and contractility are within normal limits. The left ventricle appears hyperdynamic. The estimated ejection fraction is greater than 65%. There is septal flattening of the interventricular septum consistent with right ventricular volume or pressure overload. Right Ventricle: The right ventricle is moderately dilated. The right ventricular global systolic function is moderately reduced. Conclusions Limited study. Moderate concentric left ventricular hypertrophy is observed. Global left ventricular wall motion and contractility are within normal limits. The left ventricle appears hyperdynamic. The estimated ejection fraction is greater than 65%. There is septal flattening of the interventricular septum consistent with right ventricular volume or pressure overload. The right ventricle is moderately dilated. The right ventricular global systolic function is moderately reduced, the apex is severely hypokinetic, the base moves well (Fajardo's sign). Recent offic echo of 3/30/18 showed EF 60-65%, normal RV systolic function and mild RV chamber dilatation. Measurements Name Value Normal Range RVIDd (AP) 2D 3.9 cm (0.9 - 2.6) IVSd (2D) 1.3 cm (0.6 - 1) LVPWd (2D) 1.3 cm (0.6 - 1) LVIDd (2D) 4 cm (3.6 - 5.4) LVIDs (2D) 2.4 cm - LV FS (2D) 40 % (25 - 45)
[2018-08-11] MEDS: Gabapentin CAP(*) 300 MG PO SCH (17:54)
[2018-08-11] MEDS: Potassium Chlor TAB* 20 MEQ TAB.ER PO SCH ×2 (19:40→23:26)
--- NOTE | 2018-08-11 20:47 | HP ---
ADMISSION HISTORY AND PHYSICAL: DATE OF ADMISSION: 08/11/18 REASON FOR ADMISSION: Multiple pulmonary emboli with right heart strain. HISTORY OF PRESENT ILLNESS: The patient is a 77-year-old white female with a history of hypertension and a recent (one month) history of increasing SOB, which was being being evaluated by Dr. Slaughter. The patient was brought to the emergency room with the same symptomatology and a CTA of the chest revealed multiple bilateral pulmonary emboli. Cardiac ultrasound in the ED revealed an enlarged right ventricle with RV hypokinesis and the patient was given alteplase and started on a heparin infusion and brought to the intensive care unit. On arrival to the ICU, the patient was breathing comfortably and was oxygenating satisfactorily on nasal O2. There is no Hx trauma, arthritis, varicose veins, or prior Hx of VTE. MEDICATIONS: Outpatient Meds: 1. Verapamil 180 mg daily. 2. Spironolactone 50 mg daily. 3. Amlodipine 5 mg daily. 4. Torsemide 10 mg 3 times daily. DRUG ALLERGIES: 1. ATENOLOL (coughing). 2. ATORVASTATIN (leg cramps). 3. CLONIDINE (rash). 4. DILTIAZEM (coughing). 5. HYDRALAZINE (unknown reaction). 6. HYDROCHLOROTHIAZIDE (coughing). 7. MEDROXYPROGESTERONE (unknown reaction). 8. OXYCODONE (itching). 9. ROSUVASTATIN (leg cramps). SOCIAL HISTORY: The patient is , lives with her , and denies alcohol or drug abuse. REVIEW OF SYSTEMS: Noncontributory. PHYSICAL EXAMINATION GENERAL: The patient is alert, oriented and in no respiratory distress. VITAL SIGNS: Temp 98 temporal, pulse rate 88 and regular, respiratory rate 20, O2 saturation 93% on nasal O2 at 2 L per minute, blood pressure 141/72. HEENT: No facial asymmetry. NECK: No jugular venous distention. LUNGS: Clear to auscultation. CARDIAC: No murmurs, rubs, or gallops. ABDOMEN: Not distended. EXTREMITIES: 2 -3+ ankle edema bilaterally. No cyanosis. NEUROLOGIC: No focal deficits. ADMISSION LABORATORY DATA/DIAGNOSTIC STUDIES: Hemoglobin 12.4, white count 8.3 , platelets 197,000. INR 1. PTT 24.9. Potassium 3.2, sodium 132, BUN 17, creatinine 1. Lactic acid 2.2. Troponin 0.5. BNP 149. Albumin 3.8. Liver enzymes normal. Bilirubin normal. CTA of the thorax showed large bilateral pulmonary emboli with right ventricular enlargement. EKG showed a normal sinus rhythm with a right bundle- branch block. Transthoracic ultrasound showed systolic dysfunction of the right ventricle with the right apex severely hypokinetic and the right ventricle being moderately dilated. The left ventricle appeared hyperdynamic and the estimated ejection fraction was greater than 65%. IMPRESSION: Multiple pulmonary emboli with right heart strain. Etiology of the venous thromboembolism unclear at this point. MANAGEMENT PLAN: The patient was given alteplase and started on a heparin drip and will be monitored closely for bleeding complications over the next 24 hours and then started on an oral anticoagulant, and the heparin drip will subsequently be discontinued. I have also ordered ultrasound examination of both lower extremities to identify any residual clot burden. TIME SPENT: Critical care time, 60 minutes. [id number]/CPS #: [id number] MTDTrever
[2018-08-12 06:30] LABS: EGFR Non-African American 66.1 (>60)
[2018-08-12] MEDS: amLODIPine TAB* 5 MG PO SCH (08:55)
[2018-08-12] MEDS: Spironolactone TAB* 25 MG PO SCH (08:55)
[2018-08-12] MEDS: Verapamil SR CAP* 180 MG PO SCH (08:55)
[2018-08-12] MEDS: Gabapentin CAP(*) 300 MG PO SCH ×3 (08:55→21:18)
[2018-08-12] MEDS: Heparin DRIP 25,000 UNITS(*) 25,000 UNITS/500 ML BAG IV SCH (11:17)
--- NOTE | 2018-08-12 16:40 | PN ---
Date of Service: 08/12/18 Critical Care Services: Has done well since admission. Breathing comfortably. No signs of abnormal bleeding. Vital Signs: Temp Pulse Resp BP SpO2 FiO2 99.1 F 82 26 144/74 97 Physical Exam: Gen:Alert, oriented. No distress Lungs: Clear Cardiac: Reg rhythm Extremities:1-2+ edema Fluid Balance (Past 24 Hours): 08/12/18 06:59 Intake Total 1737 Output Total 1974 Balance -238 Weight 201 lb Intake: IV Fluids 105 Medicated IV 376 Heparin 376 Heparin 46 Oral 1210 Output: Urine 1974 Other: # Bowel Movements Estimated Stool Amount Labs: 08/11/18 08/12/18 08/12/18 19:25 01:50 05:51 APTT 53.5 H 57.0 H Sodium 132 L Potassium 3.5 Chloride 94 L Carbon Dioxide 31 Anion Gap 7 BUN 13 Creatinine 0.84 Est GFR ( Amer) 80.0 Est GFR (Non-Af Amer) 66.1 BUN/Creatinine Ratio 15.5 Glucose 148 H Calcium 8.3 L Studies: None Nutrition: Oral diet Impression: Doing well after thrombolysis for multiple pulmonary emboli. Plan: 1. Ultrasound study of legs to define residual clot burden. 2. Repeat cardiac ECHO to evaluate the right heart 3. Continue heparin tonight and start oral anticoagulant tomorrow.
[2018-08-12] MEDS: Mometasone/Formoter 200/5 MDI INH SCH (19:31)
[2018-08-13 05:47] LABS: Hematocrit 32 % (35-47); Hemoglobin 11.3 g/dl (12.0-16.0); Mean Corpuscular HGB Conc 35 g/dl (31-36); Mean Corpuscular Hemoglobin 32 pg (27-31); Mean Corpuscular Volume 92 fL (80-97); Mean Platelet Volume 7.4 fL (7.4-10.4); Platelet Count 207 10^3/ul (150-450); Red Blood Count 3.53 10^6/ul (4.00-5.40); Red Cell Distribution Width 14 % (10.5-15); White Blood Count 6.6 10^3/ul (3.5-10.8)
[2018-08-13] MEDS: Mometasone/Formoter 200/5 MDI INH SCH ×2 (08:00→20:00)
[2018-08-13] MEDS: Verapamil SR CAP* 180 MG PO SCH (08:02)
[2018-08-13] MEDS: Torsemide TAB* 20 MG PO SCH (08:02)
[2018-08-13] MEDS: Spironolactone TAB* 25 MG PO SCH (08:02)
[2018-08-13] MEDS: amLODIPine TAB* 5 MG PO SCH (08:02)
[2018-08-13] MEDS: Heparin DRIP 25,000 UNITS(*) 25,000 UNITS/500 ML BAG IV SCH (09:29)
--- NOTE | 2018-08-13 11:10 | PN ---
Date of Service: 08/13/18 Critical Care Services: Patient had an uneventful evening. No evidence of troublesome bleeding. No complaints of SOB this AM Vital Signs: Temp Pulse Resp BP SpO2 FiO2 99.0 F 91 19 129/73 99 Physical Exam: Gen:Alert, oriented, breathing comfortably Lungs:Clear Cardiac: Reg rhythm Extremities:1-2+ edema Fluid Balance (Past 24 Hours): 08/12/18 08/13/18 06:59 06:59 Intake Total 1737 1599 Output Total 1974 1525 Balance -238 74 Weight 201 lb 201 lb Intake: IV Fluids 105 Medicated IV 376 345 Heparin 376 345 Heparin 46 174 Oral 1210 1080 Output: Urine 1974 1525 Other: Estimated Void Medium # Bowel Movements 1 Estimated Stool Amount Medium # Voids 3 Labs: 08/13/18 08/13/18 08/13/18 02:20 05:36 09:35 WBC 6.6 RBC 3.53 L Hgb 11.3 L Hct 32 L MCV 92 MCH 32 H MCHC 35 RDW 14 Plt Count 207 MPV 7.4 APTT 44.5 H 85.0 H Studies: Vascular ultrasound - Occlusive DVT involving the left popliteal, posterior tibial, and peroneal veins. Nutrition: Oral diet Impression: Has done well after thrombolytic Rx. Source of PE is in the left leg. Plan: 1. D/C heparin drip 2. Start Eliquis (10 mg BID x 7 days, then 5 mg BID) 3. Repeat cardiac ECHO to evaluate right heart 4. Transfer out of ICU. Critical Care Time:
[2018-08-13] MEDS: Apixaban* 5 MG TAB PO SCH ×2 (11:51→21:26)
[2018-08-13] MEDS: Gabapentin CAP(*) 300 MG PO SCH (21:26)
[2018-08-14] MEDS: Mometasone/Formoter 200/5 MDI INH SCH ×2 (07:47→20:11)
[2018-08-14 08:33] LABS: ABS Basophils 0 10^3/ul (0-0.2); ABS Eosinophils 0.1 10^3/ul (0-0.6); ABS Lymphocytes 1.5 10^3/ul (1.0-4.8); ABS Monocytes 0.8 10^3/ul (0-0.8); ABS Neutrophils 4.5 10^3/ul (1.5-7.7); ABS Nucleated RBC 0 10^3/ul; Eosinophil % 1.4 % (0-6); Hematocrit 35 % (35-47); Lymphocyte % 21.2 % (25-47); Mean Corpuscular HGB Conc 34 g/dl (31-36); Mean Corpuscular Hemoglobin 32 pg (27-31); Mean Corpuscular Volume 93 fL (80-97); Mean Platelet Volume 7.3 fL (7.4-10.4); Nucleated Red Blood Cells % 0; Platelet Count 258 10^3/ul (150-450); Red Blood Count 3.79 10^6/ul (4.00-5.40); Red Cell Distribution Width 14 % (10.5-15); White Blood Count 6.9 10^3/ul (3.5-10.8)
[2018-08-14 08:48] LABS: EGFR Non-African American 70.9 (>60)
--- NOTE | 2018-08-14 09:06 | PN ---
Subjective Date of Service: 08/14/18 Interval History: Resting in bed on assessment. [address] Per nurse patient needs O2 when walking to bathroom due to shortness of breath. O2 challenge to be completed today to see patient's O2 supplement need. Patient reports shortness of breath with exertion. Report min improvement in this symptoms since admission. Denies cp, palpitations, n/v/d, or pain. Patient reports she lives in one story home with . She is indep at baseline. Currently reports she needs assistance to bathroom due to shortness of breath and associated unsteadiness. Objective Active Medications: Amlodipine Besylate (Norvasc Tab*) 5 mg PO QAM [facility] Last Admin: 08/13/18 08:02 Dose: 5 mg Apixaban (Eliquis*) 10 mg PO BID [facility] Stop: 08/19/18 12:00 Last Admin: 08/13/18 21:26 Dose: 10 mg Gabapentin (Neurontin Cap(*)) 600 mg PO BEDTIME [facility] Last Admin: 08/13/18 21:26 Dose: 600 mg Mometasone Furoate/Formoterol Fumar (Dulera 200/5 Mdi*) 2 puff INH BID [facility]; Protocol Last Admin: 08/14/18 07:47 Dose: Not Given Spironolactone (Aldactone Tab*) 50 mg PO DAILY [facility] Last Admin: 08/13/18 08:02 Dose: 50 mg Torsemide (Demadex*) 20 mg PO DAILY [facility] Last Admin: 08/13/18 08:02 Dose: 20 mg Verapamil HCl (Calan Sr Cap*) 180 mg PO DAILY [facility] Last Admin: 08/13/18 08:02 Dose: 180 mg Vital Signs - 8 hr 08/14/18 03:22 Temperature 98.0 F Pulse Rate 86 Respiratory 18 Rate Blood Pressure 151/65 (mmHg) O2 Sat by Pulse 95 Oximetry Oxygen Devices in Use Now: Nasal Cannula Appearance: Comfortable, cooperative, NAD Eyes: No Scleral Icterus Ears/Nose/Mouth/Throat: Mucous Membranes Moist Neck: NL Appearance and Movements; NL JVP Respiratory: Symmetrical Chest Expansion and Respiratory Effort, Clear to Auscultation Cardiovascular: RRR - Systolic murmur noted, No Edema Abdominal: NL Sounds; No Tenderness; No Distention Lymphatic: No Cervical Adenopathy Extremities: No Edema, No Clubbing, Cyanosis Skin: No Rash or Ulcers Neurological: Alert and Oriented x 3 Nutrition: Taking PO's Result Diagrams: 08/14/18 08:11 08/14/18 11:28 Additional Lab and Data: Laboratory Results - last 24 hr 08/14/18 08/14/18 08:11 08:11 WBC 6.9 RBC 3.79 L Hgb 12.0 Hct 35 MCV 93 MCH 32 H MCHC 34 RDW 14 Plt Count 258 MPV 7.3 L Neut % (Auto) 65.4 Lymph % (Auto) 21.2 L [place] % (Auto) 11.5 H Eos % (Auto) 1.4 Baso % (Auto) 0.5 Absolute Neuts (auto) 4.5 Absolute Lymphs (auto) 1.5 Absolute Monos (auto) 0.8 Absolute Eos (auto) 0.1 Absolute Basos (auto) 0 Absolute Nucleated RBC 0 Nucleated RBC % 0 Sodium 136 Potassium 5.1 H D Chloride 98 L Carbon Dioxide 33 H Anion Gap 5 BUN 11 Creatinine 0.79 Est GFR ( Amer) 85.8 Est GFR (Non-Af Amer) 70.9 BUN/Creatinine Ratio 13.9 Glucose 134 H Calcium 9.2 Microbiology and Other Data: Microbiology 08/11/18 15:32 Nasal Screen MRSA (PCR) - Final Nasal Mrsa Not Detected Diagnostic Imaging: . EKG Data: . Assess/Plan/Problems-Billing Assessment: Patient is a 77 y/o F with a PMH of HTN who presented to the ED with c/o SOB and LE edema. She states that Sx onset two weeks ago and have progressively worsened. CTA of chest revealed multiple bilateral pulmonary emboli. In addition Echo revealed enlarged RV with hypokinesis. Patient was given alteplase and started on heparin drip. - Patient Problems (1) Pulmonary emboli Comment: - Multiple bilateral pulmonary emboli - Left LE DVT in popliteal, tibial, peroneal - Echo: Enlarged RV with hypokinesis and EF of approx 65% - Repeat echo today and RV function now doucmented as mild reduction instead of moderate - Continues to have exertional SOB and needing supplemental O2 - Was on Heparin Drip. Now on Eliquis 10 mg BID for 7 days, then 5 mg BID. Day 1 was 08/13 - Patient will need follow up with hematology/oncology after discharge. (2) Hypertension Comment: - Hx of htn - Verampril 180 mg daily, Aldactone 50 mg daily, Toresimide 20 mg daily (home dose 10 mg TID), Norvasc 5 mg daily - SBP currently approx 130s to 160s (3) Deep vein blood clot of left lower extremity Comment: - Left DVT involving popliteal, tibial, peroneal - Repeat LE ultrasound for resolution in future (4) Hyperkalemia Comment: - K+ 3.5 yesterday and 5.1. - Due to significant increase I have ordered an additional draw to reassess as this might be falsely elevated from hemolysis. - Repeat K+ 3.9 (5) Full code status Comment: - Full Code (6) DVT prophylaxis Comment: - Patient currently has Left DVT - On Eliquis Status and Disposition: Inpatient. Discharge home when medically stable. Attending: Charley Mccain
[2018-08-14] MEDS: amLODIPine TAB* 5 MG PO SCH (09:28)
[2018-08-14] MEDS: Apixaban* 5 MG TAB PO SCH ×2 (09:28→21:14)
[2018-08-14] MEDS: Spironolactone TAB* 25 MG PO SCH (09:28)
[2018-08-14] MEDS: Verapamil SR CAP* 180 MG PO SCH (09:28)
[2018-08-14] MEDS: Torsemide TAB* 20 MG PO SCH (09:29)
--- NOTE | 2018-08-14 12:08 | ECHO ---
Patient: AMPARO BYRNE [facility] Rec#: [id number] : 1940 Date: 08/14/2018 Age: 77y Height: 152 cm / 59.8 in Weight: 92 kg / 202.8 lbs Sex: F BSA: 1.87 Room#: [facility] Admit Date#: 08/11/2018 Type: Inpatient Referring: Pradip Arzate MD Reading: Erick Hill MD Fire Prevention Inspector: Love Corral RDCS CC: Maryjo Dickerson MD Transthoracic Echocardiogram Indication: Pulmonary Embolism BP: 151/65 HR: 78 Rhythm: NSR Findings History: HTN, HLD, , LUZ MARIA. Technical Comments: The study quality is fair. Completed at 0930. Left Ventricle: The left ventricular chamber size is normal. There is no left ventricular hypertrophy. There is normal left ventricular systolic function. The estimated ejection fraction is 55-60%. There is septal flattening of the interventricular septum consistent with right ventricular volume or pressure overload. Abnormal left ventricular diastolic function is observed. Abnormal left ventricular diastolic filling is observed, consistent with impaired relaxation. Left Atrium: The left atrium is mildly dilated. Right Ventricle: Moderator Band present. The right ventricle is moderately dilated. The right ventricular global systolic function is mildly reduced. Right Atrium: The right atrial cavity size is normal. Aortic Valve: The aortic valve is trileaflet. Moderate aortic leaflet calcification is visualized. Systolic excursion of the aortic valve cusps is reduced. There is mild aortic regurgitation. There is mild aortic stenosis. The mean gradient of the aortic valve is 11 mmHg. The peak instantaneous gradient of the aortic valve is 26 mmHg. The aortic valve area, by peak velocities, is calculated at 1.6 cm2. The aortic valve area, by VTI's, is calculated at 1.8 cm2. The aortic valve area, by planimetry, is calculated at 1.3 cm2. Mitral Valve: There is mitral annular calcification. The mitral valve leaflets are mildly thickened. There is a trace of mitral regurgitation. There is no evidence of mitral stenosis. Tricuspid Valve: The tricuspid valve leaflets are normal. There is moderate tricuspid regurgitation. The right ventricular systolic pressure is estimated at 46 mmHg. There is evidence of moderate pulmonary hypertension. There is no tricuspid stenosis. Pulmonic Valve: The pulmonic valve appears normal. There is trace to mild pulmonic regurgitation. There is no pulmonic stenosis. Pericardium: There is no significant pericardial effusion. A pericardial fat pad is visualized. Aorta: There is no dilatation of the ascending aorta. There is no dilatation of the aortic arch. The aortic root is normal in size. Pulmonary Artery: The main pulmonary artery appears normal. Venous: The inferior vena cava is dilated. There is a greater than 50% respiratory change in the inferior vena cava dimension. Conclusions There is normal left ventricular systolic function. The estimated ejection fraction is 55-60%. There is septal flattening of the interventricular septum consistent with right ventricular volume or pressure overload. The right ventricular global systolic function is mildly reduced. Moderate aortic leaflet calcification is visualized. There is mild aortic stenosis. The mean gradient of the aortic valve is 11 mmHg. There is a trace of mitral regurgitation. There is moderate tricuspid regurgitation. There is evidence of moderate pulmonary hypertension. There is no significant pericardial effusion. Compared to study of 12/16/17, the LV function is the same. The RV hypokinesis is new Measurements Name Value Normal Range RVIDd (AP) 2D 3.9 cm (0.9 - 2.6) RVDdMajor (2D) 5.7 cm (2.2 - 4.4) RAd ISD 4CH 4.9 cm (3.4 - 4.9) RA (A4C)W 4.6 cm (2.9 - 4.6) IVSd (2D) 1 cm (0.6 - 1) LVPWd (2D) 1 cm (0.6 - 1) LVIDd (2D) 4.4 cm (3.6 - 5.4) LVIDs (2D) 3.2 cm - LV FS (2D) 28 % (25 - 45) Aortic Annulus 2.2 cm (1.4 - 2.6) Ao root diameter (2D) 2.9 cm (2.1 - 3.5) Ascending Ao 3.4 cm (2.1 - 3.4) Aortic arch 2.9 cm (1.8 - 3.4) LA dimension (AP) 2D 4 cm (2.3 - 3.8) LAd ISD 4CH 5.4 cm (2.9 - 5.3) LA ISD 4CH W 4.6 cm (2.5 - 4.5) Name Value Normal Range LA ESV BP (A/L) index 30 ml/m2 - Name Value Normal Range MV E-wave Vmax 0.7 m/sec - MV deceleration time 218 msec - MV A-wave Vmax 1.3 m/sec - MV E:A ratio 0.6 ratio - LV septal e' Vmax 0.05 m/sec - LV lateral e' Vmax 0.06 m/sec - LV E:e' septal ratio 14 ratio - LV E:e' lateral ratio 11.67 ratio - Name Value Normal Range AV Vmax 2.6 m/sec - AV VTI 48 cm - AV peak gradient 26 mmHg - AV mean gradient 11 mmHg - LVOT diameter 2 cm - LVOT Vmax 1.3 m/sec - LVOT VTI 28 cm - LVOT peak gradient 6 mmHg - LVOT mean gradient 3 mmHg - DOI (VTI) 0.58 ratio - DACIA (planimetry) 1.3 cm2 - DACIA (continuity Vmax) 1.6 cm2 - DACIA (continuity VTI) 1.8 cm2 - FAHEEM Vmax 1.2 m/sec - Name Value Normal Range TR Vmax 3.1 m/sec - TR peak gradient 38 mmHg - RAP 8 mmHg - RVSP 46 mmHg - IVC diameter 2.3 cm - Name Value Normal Range PV Vmax 1.3 m/sec - PV peak gradient 7 mmHg -
[2018-08-14] MEDS: Gabapentin CAP(*) 300 MG PO SCH (21:14)
[2018-08-15] MEDS: Mometasone/Formoter 200/5 MDI INH SCH ×2 (06:59→19:48)
[2018-08-15 07:09] LABS: ABS Basophils 0.1 10^3/ul (0-0.2); ABS Eosinophils 0.1 10^3/ul (0-0.6); ABS Lymphocytes 1.9 10^3/ul (1.0-4.8); ABS Monocytes 0.8 10^3/ul (0-0.8); ABS Neutrophils 4.5 10^3/ul (1.5-7.7); ABS Nucleated RBC 0 10^3/ul; Eosinophil % 1.7 %; Hematocrit 34 % (35-47); Hemoglobin 11.8 g/dl (12.0-16.0); Lymphocyte % 25.3 %; Mean Corpuscular HGB Conc 35 g/dl (31-36); Mean Corpuscular Hemoglobin 32 pg (27-31); Mean Corpuscular Volume 91 fL (80-97); Mean Platelet Volume 7.2 fL (7.4-10.4); Nucleated Red Blood Cells % 0.1; Platelet Count 265 10^3/ul (150-450); Red Blood Count 3.66 10^6/ul (4.00-5.40); Red Cell Distribution Width 14 % (10.5-15); White Blood Count 7.3 10^3/ul (3.5-10.8)
[2018-08-15 07:26] LABS: EGFR Non-African American 69.9 (>60)
[2018-08-15] MEDS: Spironolactone TAB* 25 MG PO SCH (08:23)
[2018-08-15] MEDS: Apixaban* 5 MG TAB PO SCH ×2 (08:23→21:40)
[2018-08-15] MEDS: Verapamil SR CAP* 180 MG PO SCH (08:23)
[2018-08-15] MEDS: Torsemide TAB* 20 MG PO SCH (08:23)
[2018-08-15] MEDS: amLODIPine TAB* 5 MG PO SCH (08:23)
--- NOTE | 2018-08-15 10:26 | PN ---
Subjective Date of Service: 08/15/18 Interval History: Resting in bed on assessment. Reports she feels a little more stable on her feet as she is walking to the bathroom indep. Continues to need O2 supplementation. Denies cp, palpitations, n/v/d. Discussed causes of DVT/PE. As mentioned in yesterdays note, patient took [address] to [place] where she stayed and then returned home x3 trips this Nov. Does not seem to be a convincing for provoked DVT, but I have consulted Dr Gomez and appreciate his input. Objective Active Medications: Amlodipine Besylate (Norvasc Tab*) 5 mg PO QAM [facility] Last Admin: 08/15/18 08:23 Dose: 5 mg Apixaban (Eliquis*) 10 mg PO BID [facility] Stop: 08/19/18 12:00 Last Admin: 08/15/18 08:23 Dose: 10 mg Gabapentin (Neurontin Cap(*)) 600 mg PO BEDTIME [facility] Last Admin: 08/14/18 21:14 Dose: 600 mg Mometasone Furoate/Formoterol Fumar (Dulera 200/5 Mdi*) 2 puff INH BID [facility]; Protocol Last Admin: 08/15/18 06:59 Dose: Not Given Spironolactone (Aldactone Tab*) 50 mg PO DAILY [facility] Last Admin: 08/15/18 08:23 Dose: 50 mg Torsemide (Demadex*) 10 mg PO DAILY [facility] Verapamil HCl (Calan Sr Cap*) 180 mg PO DAILY [facility] Last Admin: 08/15/18 08:23 Dose: 180 mg Vital Signs - 8 hr 08/15/18 08/15/18 08/15/18 03:45 08:00 08:06 Temperature 98.7 F 98.3 F Pulse Rate 81 Respiratory 24 20 18 Rate Blood Pressure 143/78 142/61 (mmHg) O2 Sat by Pulse 97 96 Oximetry Oxygen Devices in Use Now: Nasal Cannula Appearance: Comfortable, NAD Eyes: No Scleral Icterus Ears/Nose/Mouth/Throat: Mucous Membranes Moist Neck: NL Appearance and Movements; NL JVP Respiratory: Symmetrical Chest Expansion and Respiratory Effort, Clear to Auscultation Cardiovascular: RRR - S1, S2 present. Systolic murmur appreciated. Patient reports this is baseline, No Edema Abdominal: NL Sounds; No Tenderness; No Distention Lymphatic: No Cervical Adenopathy Extremities: No Edema Skin: No Rash or Ulcers Neurological: Alert and Oriented x 3 Nutrition: Taking PO's Result Diagrams: 08/15/18 06:56 08/15/18 06:56 Additional Lab and Data: Laboratory Results - last 24 hr 08/14/18 08/15/18 08/15/18 11:28 06:56 06:56 WBC 7.3 RBC 3.66 L Hgb 11.8 L Hct 34 L MCV 91 MCH 32 H MCHC 35 RDW 14 Plt Count 265 MPV 7.2 L Neut % (Auto) 61.3 Lymph % (Auto) 25.3 [place] % (Auto) 10.9 Eos % (Auto) 1.7 Baso % (Auto) 0.8 Absolute Neuts (auto) 4.5 Absolute Lymphs (auto) 1.9 Absolute Monos (auto) 0.8 Absolute Eos (auto) 0.1 Absolute Basos (auto) 0.1 Absolute Nucleated RBC 0 Nucleated RBC % 0.1 Sodium 131 L Potassium 3.9 4.2 Chloride 97 L Carbon Dioxide 29 Anion Gap 5 BUN 14 Creatinine 0.80 Est GFR ( Amer) 84.6 Est GFR (Non-Af Amer) 69.9 BUN/Creatinine Ratio 17.5 Glucose 142 H Calcium 9.1 Microbiology and Other Data: Microbiology 08/11/18 15:32 Nasal Screen MRSA (PCR) - Final Nasal Mrsa Not Detected Diagnostic Imaging: . EKG Data: . Assess/Plan/Problems-Billing Assessment: Patient is a 77 y/o F with a PMH of HTN who presented to the ED with c/o SOB and LE edema. She states that Sx onset two weeks ago and have progressively worsened. CTA of chest revealed multiple bilateral pulmonary emboli. In addition Echo revealed enlarged RV with hypokinesis. Patient was given alteplase and started on heparin drip. Now on Eliquis - Patient Problems (1) Pulmonary emboli Comment: - Multiple bilateral pulmonary emboli - Left LE DVT in popliteal, tibial, peroneal - Echo: Enlarged RV with hypokinesis and EF of approx 65% - Repeat echo yesterday and RV function now doucmented as mild reduction instead of moderate - Continues to have exertional SOB and needing supplemental O2 - Was on Heparin Drip. Now on Eliquis 10 mg BID for 7 days, then 5 mg BID. Day 1 was 08/13 - Consult requested from hematology/oncology. (2) Hypertension Comment: - Hx of htn - Verampril 180 mg daily, Aldactone 50 mg daily, Toresimide 20 mg daily (home dose 10 to 30 mg daily depending on LE edema), Norvasc 5 mg daily - SBP currently approx 130s to 160s (3) Deep vein blood clot of left lower extremity Comment: - Left DVT involving popliteal, tibial, peroneal - Repeat LE ultrasound for resolution in future (4) Hyperkalemia Comment: - K+ 3.5 yesterday and 5.1. - Due to significant increase I have ordered an additional draw to reassess as this might be falsely elevated from hemolysis. - Repeat K+ 3.9 (5) Hyponatremia Comment: - Today Na 131 and yesterday 136 - I suspected this is due to patient being on 20 mg of Toresmide daily as she reports she takes 10 mg to 30 mg daily depending on LE edema. Usually takes 10 mg or 20 mg daily. - Asymptomatic - Will resume home dosing of Toresimide at il (6) Full code status Comment: - Full Code (7) DVT prophylaxis Comment: - Patient currently has Left DVT - On Eliquis Status and Disposition: Inpatient. Awaiting hematology consult. Possible d/c tomorrow? Will need O2 Attending: Charley Mccain
[2018-08-15] MEDS: Gabapentin CAP(*) 300 MG PO SCH (21:40)
[2018-08-16 06:41] LABS: ABS Basophils 0.1 10^3/ul (0-0.2); ABS Eosinophils 0.2 10^3/ul (0-0.6); ABS Lymphocytes 1.8 10^3/ul (1.0-4.8); ABS Monocytes 0.8 10^3/ul (0-0.8); ABS Neutrophils 4.3 10^3/ul (1.5-7.7); ABS Nucleated RBC 0 10^3/ul; Eosinophil % 2.2 %; Hematocrit 33 % (35-47); Hemoglobin 11.4 g/dl (12.0-16.0); Lymphocyte % 25.4 %; Mean Corpuscular HGB Conc 35 g/dl (31-36); Mean Corpuscular Hemoglobin 32 pg (27-31); Mean Corpuscular Volume 91 fL (80-97); Mean Platelet Volume 7.3 fL (7.4-10.4); Nucleated Red Blood Cells % 0.1; Platelet Count 278 10^3/ul (150-450); Red Cell Distribution Width 14 % (10.5-15); White Blood Count 7.2 10^3/ul (3.5-10.8)
[2018-08-16 06:56] LABS: EGFR Non-African American 70.9 (>60)
[2018-08-16 07:50] VITALS: BP 148/63
[2018-08-16] MEDS: Mometasone/Formoter 200/5 MDI INH SCH (08:00)
[2018-08-16] MEDS ORDERED: Torsemide TAB* 20 MG PO SCH (09:00)
[2018-08-16] MEDS: Spironolactone TAB* 25 MG PO SCH (09:32)
[2018-08-16] MEDS: amLODIPine TAB* 5 MG PO SCH (09:32)
[2018-08-16] MEDS: Verapamil SR CAP* 180 MG PO SCH (09:33)
[2018-08-16] MEDS: Apixaban* 5 MG TAB PO SCH (09:33)
--- NOTE | 2018-08-17 07:03 | DS ---
CC: Apryl Llanes NP; Dr. Dickerson * DISCHARGE SUMMARY: DATE OF ADMISSION: 08/11/18 DATE OF DISCHARGE: 08/16/18 PRIMARY CARE PROVIDER: Apryl Llanes NP/Dr. Dickerson. ATTENDING PHYSICIAN: Dr. Patti Baker * (dictated by Nina Garcia NP) PRIMARY DIAGNOSES: 1. Pulmonary emboli with right heart strain. 2. Deep vein blood clot of left lower extremity. 3. Hyponatremia. SECONDARY DIAGNOSES: 1. Aortic stenosis. 2. Hypertension. 3. Asthma. 4. Obesity. 5. Obstructive sleep apnea. 6. Hypercholesterolemia. 7. Gastroesophageal reflux disease. 8. Congestive heart failure. 9. Osteoarthritis. CONSULTATIONS WHILE IN THE HOSPITAL: Dr. Pradip Arzate, core stacker. PROCEDURES WHILE IN THE HOSPITAL: There were no procedures while the patient was hospitalized. STUDIES WHILE IN THE HOSPITAL: Chest/thorax CTA: Impression: Large bilateral pulmonary emboli. Right ventricular enlargement. Transthoracic echo, 08/11/18: Moderate concentric left ventricular hypertrophy is observed. Global left ventricular wall motion and contractility are within normal limits. The left ventricular appears hyperdynamic. The estimated ejection fraction is greater than 65. There is a septal flattening of the ventricular septum consistent with right ventricular volume or pressure overload. The right ventricle was moderately dilated. The right ventricular global systolic function is moderately reduced. The apex is severely hypokinetic. The base moves well. Venous Doppler study: Impression: Deep vein thrombosis involving the left popliteal vein, posterior tibial veins, and peroneal veins. The right lower extremity demonstrates no evidence of deep vein thrombosis. Transthoracic echo, repeat on 08/13/18: Conclusion: Septal flattening noted again. Right ventricular global systolic function is now mildly reduced versus previous moderately reduced. DISCHARGE MEDICATIONS: New home medications: Apixaban 10 mg p.o. b.i.d. for 7 days. Day #1, 08/13/18; last day of 10 mg p.o. b.i.d. will be 08/19/18. On 08/20/18, the patient will start 5 mg p.o. b.i.d. The patient is to continue this for at least 3 months, some patients require 6 months to 12 months or indefinitely. This decision will be made with Dr. Gomez at their followup. Continued home medications: 1. Singulair 10 mg p.o. q.p.m. 2. Norvasc 5 mg p.o. q.a.m. 3. Torsemide 10 to 30 mg p.o. daily as needed for edema. 4. Symbicort 160/4.5 one puff daily. 5. Aldactone 50 mg p.o. daily. 6. Neurontin 1 to 3 caps 100 mg caps p.o. at bedtime. 7. Verapamil ER 180 mg p.o. daily. 8. Calcium, magnesium with vitamin D one cap p.o. daily. Changed home meds: No home meds changed. Discontinued home meds: No home meds discontinued. HISTORY OF PRESENT ILLNESS/HOSPITAL COURSE: Mrs. Burns is a 77-year-old female with a past medical history of hypertension, obesity, obstructive sleep apnea, aortic stenosis, hypercholesterolemia; who presented to the emergency department on 08/11/18. The patient came to the ED due to increase in shortness of breath, which had been occurring for about 1 month. While in the emergency room, a CT of chest revealed multiple bilateral pulmonary embolism. Cardiac ultrasound in the ED revealed enlarged right ventricle with RV hypokinesis and the patient was given alteplase and started on heparin infusion and admitted to the intensive care unit. The patient was stabilized while in the intensive care unit, heparin drip was discontinued, and patient was started on Eliquis p.o. b.i.d. 10 mg. During the patient's hospital stay, she continued to need oxygen to maintain O2 saturation and for comfort of breathing. The patient was transferred to the telemetry floor on 08/13/18; since that time, she has been slowly improving. Initially, she was unable to go to the bathroom independently without shortness of breath. Today, she is able to ambulate to the bathroom independently with oxygen. The patient reports that her shortness of breath with exertion is slowly improving. The patient has been set up with home oxygen. She will be discharged with an oxygen tank and home care will meet her at home for further needs. The etiology of patient's bilateral pulmonary emboli are unclear. We discussed the case with Hematology/Oncology determining whether this is provoked or unproved. The patient does report that she had 3 round trips to [place], [place], which is a total of 6 hours each round trip, but did have time in [place] in between each trip. This is not necessarily a provoking factor. Hematology/Oncology would like patient to follow up with them outpatient for further evaluation and discussion of duration of treatment. The patient has been set up with an appointment with Dr. Gomez. The patient is stable for discharge home today. Vital Signs: Temp 97.9, HR 71, RR 19, O2 saturation 98% on 2 L, BP 148/63. LABORATORY DATA: WBC 7.2, hemoglobin 11.4, hematocrit 33, platelets 278. Sodium 128, potassium 1.4, chloride 94, carbon dioxide 29, BUN 15, creatinine 0.79, glucose 147. It is noted that patient's sodium is 128 today. I suspect this is due to the fact that patient has been receiving an increased dose of her torsemide daily. Up until today, where she received a regular dose of 10 mg p.o. daily. The patient will resume her daily dose of 10 mg p.o. daily as needed for edema when she returns home. I also discussed following up with her primary care provider for reassessment of her BMP. REVIEW OF SYSTEMS: The patient reports shortness of breath with exertion. Denies chest pain, palpitations, pain, abdominal pain, nausea, vomiting, dizziness. A 12- point review of systems completed and all others negative besides previously mentioned. PHYSICAL ASSESSMENT: Appearance: Comfortable, no acute distress. Eyes: PERRLA. Ears/Nose/Throat/Mouth: Mucous membranes are moist. No lesions, no erythema. Neck: Appearance and movement within normal limits, no JVD. Respiratory: Symmetrical chest expansion and respiratory effort. Clear to auscultation. Cardiovascular: Rate and rhythm regular. S1, S2 present. Systolic murmur appreciated. The patient reports this is her baseline. No edema noted. Abdomen: Bowel sounds positive x4. No tenderness. No distension. Lymphatic: No cervical adenopathy. Extremities: No edema. Skin : The patient has bruising to bilateral hands due to IV starts. Neurological: Alert and oriented x3. Nutrition: Taking p.o. Hematology: No evidence of overt bleeding. FOLLOWUP: 1. Pulmonary emboli/DVT: The patient to continue Eliquis as directed. She should also follow up with Dr. Gomez as scheduled. The patient was educated on new/worsening symptoms and when to call primary care, call 911, present to ED. 2. Hyponatremia: As mentioned above, the patient's sodium was mildly low today. I suspect this is due to the increased dose of torsemide. The patient should follow up CMP in the next 3 to 6 days. 3. Aortic stenosis: The patient should follow up with her head of merchandise buying as scheduled. 4. Hypertension: The patient should continue home medications as prescribed and follow up with primary care/head of merchandise buying. 5. Obesity: The patient would benefit from heart-healthy diet and regular exercise. 6. Obstructive sleep apnea: The patient reports she is compliant with her CPAP and we discussed the importance of using her CPAP regularly. This is a summarized report of a complex medical history and hospital stay. For further details, please see the entire medical record. Plan also reviewed with my attending Dr Baker who agrees with my plan. TIME SPENT: Approximately 45 minutes were spent on this discharge, half that time was spent [id number] with the patient discussing discharge plans and instructions. NINA GARCIA, OSCAR [id number]/CPS #: [id number] PARUL
== END 2018-08-16 13:35 | disposition home or self-care (01) | DRG 176 ==
LOC: ED 11:20 → ICU 13:43 → MED 08-13 12:08
PROVIDERS: ADMIT Internal Medicine Critical Care Medicine; ATTEND Internal Medicine
DX: I26.99 Other pulmonary embolism without acute cor pulmonale (principal); I82.432 Acute embolism and thrombosis of left popliteal vein; I82.442 Acute embolism and thrombosis of left tibial vein; I82.4Z2 Acute embolism and thrombosis of unspecified deep veins of left distal lower extremity; E87.1 Hypo-osmolality and hyponatremia; E78.00 Pure hypercholesterolemia, unspecified; I35.0 Nonrheumatic aortic (valve) stenosis; K21.9 Gastro-esophageal reflux disease without esophagitis; M19.042 Primary osteoarthritis, left hand; M19.041 Primary osteoarthritis, right hand; I45.10 Unspecified right bundle-branch block; E87.5 Hyperkalemia; J45.909 Unspecified asthma, uncomplicated; E66.9 Obesity, unspecified; Z96.653 Presence of artificial knee joint, bilateral; M19.072 Primary osteoarthritis, left ankle and foot; M19.071 Primary osteoarthritis, right ankle and foot; I50.9 Heart failure, unspecified; I11.0 Hypertensive heart disease with heart failure; G47.33 Obstructive sleep apnea (adult) (pediatric); F32.9 Major depressive disorder, single episode, unspecified; Z98.51 Tubal ligation status; Z98.42 Cataract extraction status, left eye; Z88.6 Allergy status to analgesic agent; Z88.8 Allergy status to other drugs, medicaments and biological substances; Z86.19 Personal history of other infectious and parasitic diseases; Z82.49 Family history of ischemic heart disease and other diseases of the circulatory system; Z98.41 Cataract extraction status, right eye; Z90.49 Acquired absence of other specified parts of digestive tract; Z72.89 Other problems related to lifestyle; Z68.39 Body mass index [BMI] 39.0-39.9, adult; Z79.01 Long term (current) use of anticoagulants; Z79.51 Long term (current) use of inhaled steroids
CPT/HCPCS: 36415; 71275; 80048; 80053; 81003; 83605; 83880; 84132; 84484; 85025; 85027; 85610; 85730; 87641; 93005; 93306; 93308; 93970; 99282; A9270-GY; J1644; J2997; Q9967

== ENCOUNTER 2019-02-21 07:30 | Inpatient (IN) | payer MEDICARE ==
[2019-09-17] MEDS ORDERED: Buffered Lidocaine 1% SYRIN* 1 ML/SYRINGE INTRADERM ONE (14:27)
[2019-09-18] MEDS ORDERED: Tranexamic Acid 1,000 MG in NS 0.9% 50 ML* (outpatient use) IV SCH ×2
[2019-09-18] MEDS ORDERED: Lactated Ringers 1000 ML Bag* 1,000 ML IV SCH ×2 (06:00→10:00)
[2019-09-18] MEDS ORDERED: Famotidine IV* 10 MG/ML 2 ML (20 mg) IV ONE (06:00)
--- OUTSIDE RECORDS SUMMARY | 2019-09-18 06:04 | XMS REPORT | Continuity of Care Document ---
:1940 External Reference #:[id number] Author Name Summer Buckley MD (transmitted by agent of provider Hoa Jenkins) Address [address] [place] [address] Care Team Providers Name Role Phone Ramirez Murguia MD - Orthopaedic Care Team Information Spanish Interpreter/Translator [phone] Surgery Oziel Slaughter MD - Cardiovascular Care Team Information Spanish Interpreter/Translator Disease Maryjo Dickerson MD - Internal Care Team Information Spanish Interpreter/Translator [phone] Medicine Problems Active Problems Provider Date Benign essential hypertension Oziel Slaughter M.D. Onset: 05/15/2011 Coronary arteriosclerosis Oziel Slaughter M.D. Onset: 04/20/2012 Aortic valve disorder Oziel Slaughter M.D. Onset: 04/20/2012 Pure hypercholesterolemia Oziel Slaughter M.D. Onset: 08/03/2012 Asthma without status asthmaticus Mellisa Ruiz MD Onset: 09/23/2014 Gastroesophageal reflux disease Ally Wolff M.D., FACP Onset: 05/15/2011 Obstructive sleep apnea syndrome Mellisa Ruiz MD Onset: 09/06/2014 Obesity Mellisa Ruiz MD Onset: 09/06/2014 Localized, primary osteoarthritis of the Ramirez Murguia M.D. Onset: 05/01/2015 shoulder region Dyspnea Mellisa Ruiz MD Onset: 02/26/2016 Prosthetic arthroplasty of shoulder Summer Buckley MD Onset: 12/07/2016 Encounter for other orthopedic aftercare Summer Buckley MD Onset: 12/07/2016 Brachial neuritis Summer Buckley MD Onset: 05/17/2017 Social History Type Date Description Comments Sex Unknown Cigarette Use Pt never smoked but has been exposed to smokers for many years. ETOH Use pt drinks 1 to 2 drinks q night Tobacco Use Start: Unknown Patient has never smoked Recreational Drug Use Denies Drug Use Smoking Status Reviewed: 09/06/19 Patient has never smoked Exercise Type/Frequency Exercises regularly ride stationary bike Allergies, Adverse Reactions, Alerts Active Allergies Reaction Severity Comments Date HCTZ COUGH Moderate 10/21/2004 Covera FATIUGE Moderate 10/20/2004 Atenolol BRADYCARDIA Severe 10/20/2004 Cardizem CD INEFFECTIVE Moderate 10/20/2004 Catapres Urticaria Moderate 10/20/2004 Percocet itching Severe 07/30/2013 Lipitor Leg cramps 12/27/2014 Hydralazine worsening shortness of breath 08/17/2016 Valsartan Rash 09/20/2017 Pravastatin Moderate leg cramps 01/19/2019 Medications Active Medications SIG Qnty Indications Ordering Date Provider D/C Portable Patient no longer 1units R09.02 Kirstin 07/27/2019 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 She does still require nocturnal o2. Zetia 1 by mouth every 90tabs Oziel Flores 06/13/2019 10mg Tablets day Zoie Slaughter Cpap Mask And Pls provide 1units Mellisa Ruiz, 05/20/2019 Supplies necessary cpap Device supplies, mask to fit, tubing, head gear, filters, humidifier etc Torsemide 1 by mouth every 120tabs I10 Leslee Macias, 04/13/2019 20mg day with 1/2 tab N.P. Tablets prn for additional leg swelling Vitamin B12 1 by mouth every 30tabs Oziel Flores 08/09/2018 1000mcg day Zoie Slaughter Tablets ER Zyrtec Allergy take one tablet by 30caps Apryl Llanes, 12/19/2017 10mg mouth in the N.P. Capsules evening as needed Verapamil HCL ER 1 tablet daily 90caps I10 Oziel Flores 09/20/2017 Zoie Slaughter 180mg Caps ER 24HR Amlodipine Besylate 1 tabs by mouth 90tabs Oziel Flores 07/06/2016 daily Zoie Slaughter 5mg Tablets Compression knee high stockings 2units R60.0 Apryl Llanes, 04/08/2016 Stockings 20 - 30 mm N.P. Misc Aldactone 2 tabs daily 180tabs Oziel GreenMelia 10/21/2004 25mg Zoie Slaughter Tablets Vitamin D by mouth everyday Unknown 1000Unit Tablets Calcium Magnesium 1 tablet by mouth Unknown Zinc 750 daily 300-300mg Tablets Gabapentin 1 capsule at dinner 270caps Apryl Llanes, 300mg time, 2 capsules N.P. Capsules before bed Tylenol 8 Hour 1 tab every 6 hours Unknown as needed for pain 650mg Tablets ER Eliquis take one tab by Unknown 2.5mg mouth twice daily Tablets Vitamin C 1 by mouth every Unknown 500mg day Capsules History Medications Ventolin HFA 1 to 2 inhalations 8gm J45.909 Kirstin 07/27/2019 - every 4 to 6 hours [facility] 09/05/2019 108(90Base) mcg/Act as needed Aerosol Medications Administered in Office Medication SIG Qnty Indications Ordering Provider Date Triamcinolone (Kenalog) Summer Buckley MD 05/10/2019 Injection Triamcinolone (Kenalog) Summer Buckley MD 11/09/2018 Injection Triamcinolone (Kenalog) Summer Buckley MD 07/13/2018 Injection Triamcinolone (Kenalog) Nicole Mccarthy PA-C 04/03/2018 Injection Depomedrol 40MG Amanda Barrios M.D. 09/08/2016 Injection Triamcinolone (Kenalog) Summer Buckley MD 04/27/2016 Injection Triamcinolone (Kenalog) Summer Buckley MD 12/30/2015 Injection Depomedrol 80MG Amanda Barrios M.D. 03/01/2014 Injection Depomedrol 80MG Ramirez Murguia M.D. 12/04/2013 Injection Depomedrol 80MG Ramirez Murguia M.D. 07/05/2013 Injection Depomedrol 80MG Ramirez Murguia M.D. 08/22/2012 Injection Depomedrol 80MG Ramirez Murguia M.D. 05/23/2012 Injection Depomedrol 80MG Alex Shukla M.D. 03/15/2012 Injection Depomedrol 80MG Alex Shukla M.D. 08/27/2011 Injection Depomedrol 80MG Alex Shukla M.D. 08/27/2011 Injection Depomedrol 80MG Opal Portillo RPA-C 03/31/2011 Injection Depomedrol 40MG Alex Shukla M.D. 11/11/2010 Injection Depomedrol 80MG Opal Portillo RPA-C 06/08/2010 Injection Depomedrol 40MG Alex Shukla M.D. 12/15/2009 Injection Immunizations CPT Code Status Date Vaccine Reaction Lot # [id number] Given 07/11/2019 Zoster (Shingles) Vaccine (HZV), Recombinant, Subunit, Adjuvanted 64093 Given 07/11/2019 Influenza Virus Vaccine, Quadrivalent, Split, Preservative Free 18404 Given 06/22/2018 Influenza Virus Vaccine, No immediate [id number] Quadrivalent, Split, reaction...jh Preservative Free 08047 Given 06/20/2017 Influenza Virus Vaccine, No immediate [id number] Quadrivalent, Split, reaction..jh Preservative Free 28711 Given 06/16/2016 Influenza Virus Vaccine, no reaction noted ... [id number] Quadrivalent, Split, hh Preservative Free 43640 Given 06/28/2015 Influenza Virus Vaccine, [id number] Quadrivalent, Split, Preservative Free 68492 Given 11/28/2014 Tdap - [id number] Tetanus/Diptheria/Acellular Pertussis 19845 Given 11/28/2014 Pneumococcal Conjugate [id number] Vaccine 13 Valent For Intramuscular Use 62974 Given 06/26/2014 Influenza Virus Vaccine, [id number] Quadrivalent, Split, Preservative Free 57361 Given 06/21/2013 Flu Vaccine Split Virus [id number] Preservative Free For Indiv 3Yr Older Q2038 Given 05/25/2012 Fluzone Vaccine [id number] Q2035 Given 06/10/2011 Afluria Vaccine [id number] 26529 Given 06/30/2010 Influenza Virus 3Yrs & Over [id number] 78395 Given 06/26/2010 Influenza Virus 3Yrs & Over 61228 Given 10/07/2009 Influenza Virus Vaccine, Pandemic Formulation 47247 Given 10/07/2009 Administration Swine Flu Shot 63600 Given 07/08/2009 Influenza Virus 3Yrs & Over 66910 Given 07/05/2008 Influenza Virus 3Yrs & Over 69566 Given 07/05/2008 Influenza Virus 3Yrs & Over 30492 Given 11/15/2007 Zoster (Zostavax) 02364 Given 11/15/2007 Zoster (Zostavax) 31130 Given 11/15/2007 Pneumonia Vaccine 07697 Given 07/11/2007 Influenza Virus 3Yrs & Over 91140 Given 07/11/2007 Influenza Virus 3Yrs & Over 39020 Given 08/15/2006 Influenza Virus 3Yrs & Over 83749 Given 08/15/2006 Influenza Virus 3Yrs & Over Vital Signs Date Vital Result Comment 09/06/2019 2:31pm Height 59.5 inches 4'11.50" Weight 198.25 lb Heart Rate 72 /min BP Systolic 140 mmHg BP Diastolic 80 mmHg Respiratory Rate 14 /min Body Temperature 97.5 F Pain Level 7 BMI (Body Mass Index) 39.4 kg/m2 09/05/2019 8:27am Height 60 inches 5'0" Weight 198.12 lb with shoes Heart Rate 68 /min radial,regular BP Systolic Sitting 146 mmHg LA, lg cuff BP Diastolic Sitting 62 mmHg LA, lg cuff BP Systolic Standing 140 mmHg LA, lg cuff BP Diastolic Standing 70 mmHg LA, lg cuff BMI (Body Mass Index) 38.7 kg/m2 Results Test Acquired Date Facility Test Result H/L Range Note Lipid Panel - 08/13/2019 [facility] Creatine 37 U/L Normal 10- [address] Kinase(CK) [place] [address] [phone] Comp Metabolic 08/13/2019 [facility] Sodium 136 mmol/L Normal 135-[address] [place], [place] [id number] [phone] Potassium 4.1 mmol/L Normal 3.5-5.0 Chloride 98 mmol/L Low 101-111 Co2 Carbon Dioxide 30 mmol/L Normal 22-32 Anion Gap 8 mmol/L Normal 2-11 Glucose 99 mg/dL Normal 70-100 Blood Urea Nitrogen 14 mg/dL Normal 6-24 Creatinine 0.87 mg/dL Normal 0.51-0.95 BUN/Creatinine Ratio 16.1 Normal 8-20 Calcium 9.7 mg/dL Normal 8.6-10.3 Total Protein 6.5 g/dL Normal 6.4-8.9 Albumin 4.4 g/dL Normal 3.2-5.2 Globulin 2.1 g/dL Normal 2-4 Albumin/Globulin Ratio 2.1 Normal 1-3 Total Bilirubin 0.70 mg/dL Normal 0.2-1.0 Alkaline Phosphatase 76 U/L Normal 34-104 Alt 16 U/L Normal 7-52 Ast 22 U/L Normal 13-39 Egfr Non- 63.3 >60 Egfr 76.6 >60 1 Lipid Profile 08/13/2019 [facility] Triglycerides 92 mg/dL 2 (Trig/Chol/HDL) [address] [place] [address] [phone] Cholesterol 191 mg/dL 3 HDL Cholesterol 67.5 mg/dL 4 LDL Cholesterol 105 mg/dL 5 Order 07/27/2019 [facility] In-House 6 Minute [address] <pending> Basic Metabolic 06/15/2019 [facility] Sodium 130 mmol/L Low 135-145 Panel [address] [place] [address] [phone] Potassium 3.8 mmol/L Normal 3.5-5.0 Chloride 90 mmol/L Low 101-111 Co2 Carbon Dioxide 31 mmol/L Normal 22-32 Anion Gap 9 mmol/L Normal 2-11 Glucose 129 mg/dL High 70-100 Blood Urea Nitrogen 15 mg/dL Normal 6-24 Creatinine 1.00 mg/dL High 0.51-0.95 BUN/Creatinine Ratio 15.0 Normal 8-20 Calcium 9.1 mg/dL Normal 8.6-10.3 Egfr Non- 53.9 >60 Egfr 65.2 >60 6 Laboratory test 06/15/2019 [facility] Magnesium 2.1 mg/dL Normal 1.9-2.7 finding [address] [place] [address] [phone] Lipid Profile 06/12/2019 [facility] Triglycerides 61 mg/dL 7 (Trig/Chol/HDL) [address] [place] [address] [phone] Cholesterol 219 mg/dL 8 HDL Cholesterol 84.6 mg/dL 9 LDL Cholesterol 122 mg/dL 10 Basic Metabolic 04/26/2019 [facility] Sodium 137 mmol/L Normal 135-145 Panel [address] [place] [address] [phone] Potassium 4.4 mmol/L Normal 3.5-5.0 Chloride 101 mmol/L Normal 101-111 Co2 Carbon Dioxide 30 mmol/L Normal 22-32 Anion Gap 6 mmol/L Normal 2-11 Glucose 103 mg/dL High 70-100 Blood Urea Nitrogen 17 mg/dL Normal 6-24 Creatinine 0.88 mg/dL Normal 0.51-0.95 BUN/Creatinine Ratio 19.3 Normal 8-20 Calcium 9.2 mg/dL Normal 8.6-10.3 Egfr Non- 62.5 >60 Egfr 75.6 >60 11 Laboratory test 04/26/2019 [facility] Magnesium 2.4 mg/dL Normal 1.9-2.7 finding [address] [place] [address] [phone] 1 Because ethnic data is not always readily available, this report includes an eGFR for both -Americans and non- Americans. The National Kidney Disease Education Program (NKDEP) does not endorse the use of the MDRD equation for patients that are not between the ages of 18 and 70, are , have extremes of body size, muscle mass, or nutritional status, or are non- or non-. According to the National Kidney Foundation, irrespective of diagnosis, the stage of the disease is based on the level of kidney function: Stage Description GFR(mL/min/1.73 m(2)) 1 Kidney damage with normal or decreased GFR 90 2 Kidney damage with mild decrease in GFR 60-89 3 Moderate decrease in GFR 30-59 4 Severe decrease in GFR 15-29 5 Kidney failure <15 (or dialysis) 2 Desirable: <150 Borderline High: 150-199 High: 200-499 Very High: >500 3 Desirable: <200 Borderline High: 200-239 High: >239 4 Low: <40 Desirable: 40-60 High: >60 5 Desirable: <100 Near Optimal: 100-129 Borderline High: 130-159 High: 160-189 Very High: >189 6 Because ethnic data is not always readily available, this report includes an eGFR for both -Americans and non- Americans. The National Kidney Disease Education Program (NKDEP) does not endorse the use of the MDRD equation for patients that are not between the ages of 18 and 70, are , have extremes of body size, muscle mass, or nutritional status, or are non- or non-. According to the National Kidney Foundation, irrespective of diagnosis, the stage of the disease is based on the level of kidney function: Stage Description GFR(mL/min/1.73 m(2)) 1 Kidney damage with normal or decreased GFR 90 2 Kidney damage with mild decrease in GFR 60-89 3 Moderate decrease in GFR 30-59 4 Severe decrease in GFR 15-29 5 Kidney failure <15 (or dialysis) 7 Desirable: <150 Borderline High: 150-199 High: 200-499 Very High: >500 8 Desirable: <200 Borderline High: 200-239 High: >239 9 Low: <40 Desirable: 40-60 High: >60 10 Desirable: <100 Near Optimal: 100-129 Borderline High: 130-159 High: 160-189 Very High: >189 11 Because ethnic data is not always readily available, this report includes an eGFR for both -Americans and non- Americans. The National Kidney Disease Education Program (NKDEP) does not endorse the use of the MDRD equation for patients that are not between the ages of 18 and 70, are , have extremes of body size, muscle mass, or nutritional status, or are non- or non-. According to the National Kidney Foundation, irrespective of diagnosis, the stage of the disease is based on the level of kidney function: Stage Description GFR(mL/min/1.73 m(2)) 1 Kidney damage with normal or decreased GFR 90 2 Kidney damage with mild decrease in GFR 60-89 3 Moderate decrease in GFR 30-59 4 Severe decrease in GFR 15-29 5 Kidney failure <15 (or dialysis) Procedures Date Code Description Status 09/05/2019 73321 EKG Tracing & Interpretation Completed 09/03/2019 60241 ECHO Transthoracic, Real-Time 2D With Doppler And Completed Color Flow 09/03/2019 59475 ECHO Transthoracic, Real-Time 2D With Doppler And Completed Color Flow 07/27/2019 14798 Pulmonary Stress [facility] Measurement Heart Rate, Completed Oximetry 07/03/2019 10430 EKG Tracing & Interpretation Completed 05/10/2019 86186 Inj/Aspir Major JT Or Bursa W/ US Completed 07/03/2018 [id number] Bone Mineral Density Test Completed 07/03/2018 [id number] Mammogram Completed 07/01/2017 [id number] Mammogram Completed 06/18/2016 [id number] Mammogram Completed 12/06/2014 [id number] Mammogram Completed 02/27/2013 [id number] Colonoscopy Completed 06/10/2011 [id number] Bone Mineral Density Test Completed 06/10/2011 [id number] Mammogram Completed 11/04/2005 [id number] Mammogram Completed Medical Devices Description No Information Available Encounters Type Date Location Provider Dx Diagnosis Office Visit 08/14/2019 [facility] Summer Buckley MD M19.011 Primary 1:15p at [place] osteoarthritis, right shoulder Office Visit 08/09/2019 [facility] J45.30 Mild persistent 2:00p [facility] asthma, Data Management Manager uncomplicated Z86.711 Personal history of pulmonary embolism R09.02 Hypoxemia G47.33 Obstructive sleep apnea (adult) (pediatric) Z01.818 Encounter for other preprocedural examination Office Visit 07/27/2019 [facility] J45.30 Mild persistent 9:30a [facility] asthma, Data Management Manager uncomplicated Z86.711 Personal history of pulmonary embolism R09.02 Hypoxemia G47.33 Obstructive sleep apnea (adult) (pediatric) G47.00 Insomnia, unspecified Office Visit 07/03/2019 10:40a [facility] Oziel Flores I10 Essential (primary) Zoie Slaughter hypertension E78.00 Pure hypercholesterolemia, unspecified I35.0 Nonrheumatic aortic (valve) stenosis Office Visit 06/15/2019 11:40a [facility] Internal Apryl Llanes, R25.2 Cramp and spasm Medicine - [facility] N.P. Office Visit 04/10/2019 10:30a [facility] Leslee Dumont I35.0 Nonrheumatic [facility] Braden Macias aortic (valve) stenosis I10 Essential (primary) hypertension I45.10 Unspecified right bundle-branch block I25.2 Old myocardial infarction E78.00 Pure hypercholesterolemia, unspecified R60.9 Edema, unspecified Assessments Date Code Description Provider 09/06/2019 M19.011 Primary osteoarthritis, right shoulder Summer Buckley MD 09/06/2019 M25.511 Pain in right shoulder Summer Buckley MD 09/05/2019 I35.0 Nonrheumatic aortic (valve) stenosis Leslee Macias, N.P. 09/05/2019 Z01.818 Encounter for other preprocedural Leslee Macias, N.P. examination 09/05/2019 I10 Essential (primary) hypertension Leslee Macias, N.P. 09/05/2019 G47.33 Obstructive sleep apnea (adult) Leslee Macias, N.P. (pediatric) 09/05/2019 E78.00 Pure hypercholesterolemia, unspecified Leslee Macias, N.P. 09/03/2019 I35.0 Nonrheumatic aortic (valve) stenosis Oziel Slaughter M.D. 09/03/2019 I35.0 Nonrheumatic aortic (valve) stenosis Antonito ECHO Schedule 08/31/2019 Z01.818 Encounter for other preprocedural Dinora Gregorio MD examination 08/31/2019 R03.0 Elevated blood-pressure reading, without Dinora Gregorio MD diagnosis of hypertension 08/31/2019 Z23 Encounter for immunization Dinora Gregorio MD 08/14/2019 M19.011 Primary osteoarthritis, right shoulder Summer Buckley MD 08/09/2019 J45.30 Mild persistent asthma, uncomplicated Kirstin Watson NP 08/09/2019 Z86.711 Personal history of pulmonary embolism Kirstin Watson NP 08/09/2019 R09.02 Hypoxemia Kirstin Watson NP 08/09/2019 G47.33 Obstructive sleep apnea (adult) Kirstin Watson NP (pediatric) 08/09/2019 Z01.818 Encounter for other preprocedural Kirstin Watson NP examination 07/27/2019 J45.30 Mild persistent asthma, uncomplicated Kirstin Watson NP 07/27/2019 Z86.711 Personal history of pulmonary embolism Kirstin Watson NP 07/27/2019 R09.02 Hypoxemia Kirstin Watson NP 07/27/2019 G47.33 Obstructive sleep apnea (adult) Kirstin Watson NP (pediatric) 07/27/2019 G47.00 Insomnia, unspecified Kirstin Watson NP 07/03/2019 I10 Essential (primary) hypertension Oziel Slaughter M.D. 07/03/2019 E78.00 Pure hypercholesterolemia, unspecified Oziel Slaughter M.D. 07/03/2019 I35.0 Nonrheumatic aortic (valve) stenosis Oziel Slaughter M.D. 06/25/2019 Z00.00 Encounter for general adult medical Apryl Llanes, N.P. examination without abnormal findings 06/25/2019 Z12.31 Encounter for screening mammogram for Apryl Llanes, N.P. malignant neoplasm of breast 06/25/2019 I10 Essential (primary) hypertension Apryl Varn, N.P. 06/25/2019 E78.00 Pure hypercholesterolemia, unspecified Apryl Varn, N.P. 06/25/2019 I35.0 Nonrheumatic aortic (valve) stenosis Apryl Varn, N.P. 06/25/2019 G47.33 Obstructive sleep apnea (adult) Apryl Varn, N.P. (pediatric) 06/25/2019 J45.30 Mild persistent asthma, uncomplicated Apryl Varn, N.P. 06/25/2019 K21.9 Gastro-esophageal reflux disease without Apryl Varn, N.P. esophagitis 06/25/2019 R60.0 Localized edema Apryl Varn, N.P. 06/25/2019 Z86.711 Personal history of pulmonary embolism Apryl Varn, N.P. 06/25/2019 K43.9 Ventral hernia without obstruction or Apryl Varn, N.P. gangrene 06/15/2019 R25.2 Cramp and spasm Apryl Varn, N.P. 05/10/2019 M19.011 Primary osteoarthritis, right shoulder Summer Buckley MD 04/10/2019 I35.0 Nonrheumatic aortic (valve) stenosis Leslee Macias N.P. 04/10/2019 I10 Essential (primary) hypertension Leslee Macias, N.P. 04/10/2019 I45.10 Unspecified right bundle-branch block Leslee Macias, N.P. 04/10/2019 I25.2 Old myocardial infarction Leslee Macias, N.P. 04/10/2019 E78.00 Pure hypercholesterolemia, unspecified Leslee Macias, N.P. 04/10/2019 R60.9 Edema, unspecified Leslee Macias, N.P. Plan of Treatment Future Appointment(s):03/04/2020 1:40 pm - Oziel Slaughter M.D[facility]/31/2019 9:30 am - RUBY Cobian at [facility] at Apccrz6208/11/2020 1:30 pm - Kirstin [facility] NP at [facility]09/18/2019 9:30 am - Summer Buckley MD at [facility] at Aedsyx5512/25/2019 2:00 pm - Jefe Le.Anabel. at [facility] Internal Medicine - [facility]09/06/2019 - Summer Buckley, MDM19.011 Primary osteoarthritis, right shoulderFollow up:Follow up: 10-14 days post opM25.511 Pain in right shoulder Functional Status Description No Information Available Mental Status Description No Information Available Referrals Description No Information Available
--- OUTSIDE RECORDS SUMMARY | 2019-09-18 06:04 | XMS REPORT | Continuity of Care Document ---
:1940 External Reference #:[id number] Author Name Leslee Macias N.P. (transmitted by agent of provider Gino Bal) Address [address] [place] [address] Care Team Providers Name Role Phone Ramirez Murguia MD - Orthopaedic Care Team Information Office Clerk Routine [phone] Surgery Oziel Slaughter MD - Cardiovascular Care Team Information Office Clerk Routine [phone] Disease Maryjo Dickerson MD - Internal Care Team Information Office Clerk Routine Medicine Problems Active Problems Provider Date Benign [...] Use Denies Drug Use Smoking Status Reviewed: 09/05/19 Patient has never smoked Exercise Type/Frequency Exercises [...] Medications SIG Qnty Indications Ordering Date Provider Ventolin HFA 1 to 2 inhalations 8gm J45.909 Kirstin 07/27/2019 every 4 to 6 hours OSCAR Watson 108(90Base) mcg/Act as needed Aerosol D/C Portable Patient no longer 1units R09.02 Kirstin 07/27/2019 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 She does still require nocturnal o2. Zetia 1 by mouth every 90tabs Oziel Flores 06/13/2019 10mg Tablets day Zoie Slaguhter Cpap Mask And Pls provide 1units Mellisa [...] Compression knee high stockings 2units R60.0 Apryl Leocar, 04/08/2016 Stockings 20 - 30 mm N.P. Misc Aldactone 2 tabs daily 180tabs Oziel Flores 10/21/2004 25mg Zoie Slaughter Tablets Vitamin D by mouth everyday Unknown 1000Unit Tablets Calcium Magnesium 1 tablet by mouth Unknown Zinc 750 daily 300-300mg Tablets Gabapentin 1 capsule at dinner 270caps Apryl Leocar, 300mg time, 2 capsules N.P. Capsules before bed Tylenol 8 Hour 1 tab every 6 hours Unknown as needed for pain 650mg Tablets ER Eliquis take one tab by Unknown 2.5mg mouth twice daily Tablets Vitamin C 1 by mouth every Unknown 500mg day Capsules Medications Administered in Office Medication SIG Qnty [...] Code Status Date Vaccine Reaction Lot # [id number] Given 07/11/2019 Zoster (Shingles) Vaccine (HZV), Recombinant, Subunit, Adjuvanted 30835 Given 07/11/2019 Influenza Virus Vaccine, Quadrivalent, Split, Preservative Free 05195 Given 06/22/2018 Influenza Virus Vaccine, No immediate [id number] Quadrivalent, Split, reaction...jh Preservative Free 67748 Given 06/20/2017 Influenza Virus Vaccine, No immediate [id number] Quadrivalent, Split, reaction..jh Preservative Free 34194 Given 06/16/2016 Influenza Virus Vaccine, no reaction noted ... [id number] Quadrivalent, Split, hh Preservative Free 01440 Given 06/28/2015 Influenza Virus Vaccine, [id number] Quadrivalent, Split, Preservative Free 16820 Given 11/28/2014 Tdap - [id number] Tetanus/Diptheria/Acellular Pertussis 02840 Given 11/28/2014 Pneumococcal Conjugate [id number] Vaccine 13 Valent For Intramuscular Use 97211 Given 06/26/2014 Influenza Virus Vaccine, [id number] Quadrivalent, Split, Preservative Free 16183 Given 06/21/2013 Flu Vaccine Split Virus [id number] Preservative Free For Indiv 3Yr Older Q2038 Given 05/25/2012 Fluzone Vaccine [id number] Q2035 Given 06/10/2011 Afluria Vaccine [id number] 04428 Given 06/30/2010 Influenza Virus 3Yrs & Over [id number] 78122 Given 06/26/2010 Influenza Virus 3Yrs & Over 36361 Given 10/07/2009 Influenza Virus Vaccine, Pandemic Formulation 70716 Given 10/07/2009 Administration Swine Flu Shot 65922 Given 07/08/2009 Influenza Virus 3Yrs & Over 73995 Given 07/05/2008 Influenza Virus 3Yrs & Over 87130 Given 07/05/2008 Influenza Virus 3Yrs & Over 60999 Given 11/15/2007 Zoster (Zostavax) 32145 Given 11/15/2007 Zoster (Zostavax) 28330 Given 11/15/2007 Pneumonia Vaccine 70982 Given 07/11/2007 Influenza Virus 3Yrs & Over 22896 Given 07/11/2007 Influenza Virus 3Yrs & Over 78331 Given 08/15/2006 Influenza Virus 3Yrs & Over 56135 Given 08/15/2006 Influenza Virus 3Yrs & Over Vital Signs Date Vital Result Comment 09/05/2019 8:27am Height 60 inches 5'0" Weight 198.12 lb with shoes Heart Rate 68 /min radial,regular BP Systolic Sitting 146 mmHg LA, lg cuff BP Diastolic Sitting 62 mmHg LA, lg cuff BP Systolic Standing 140 mmHg LA, lg cuff BP Diastolic Standing 70 mmHg LA, lg cuff BMI (Body Mass Index) 38.7 kg/m2 08/31/2019 10:21am Height 60 inches 5'0" Weight 199.12 lb Heart Rate 74 /min BP Systolic 144 mmHg BP Diastolic 64 mmHg Body Temperature 97.9 F O2 % BldC Oximetry 94 % BMI (Body Mass Index) 38.9 kg/m2 Results Test Acquired Facility Test Result H/L Range Note Date Order 09/03/2019 [facility] Echocardiogram <pending> [address] [place] [address] [phone] Lipid Panel - 08/13/2019 [facility] Creatine 37 U/L Normal 10- [address] Kinase(CK) [place] [address] [phone] Comp 08/13/2019 [facility] Sodium 136 Normal 135-[address] mmol/[place] [address] [phone] Potassium 4.1 mmol/L Normal 3.5-5.0 Chloride 98 [...] Egfr 76.6 >60 1 Lipid Profile 08/13/2019 [facility] Triglycerides 92 mg/dL 2 (Trig/Chol/HDL) [address] [place] [address] [phone] Cholesterol 191 mg/dL 3 HDL Cholesterol 67.5 mg/dL 4 LDL Cholesterol 105 mg/dL 5 Order 07/27/2019 [facility] In-House 6 Minute Walk <pending> Basic Metabolic 06/15/2019 [facility] Sodium 130 mmol/L Low 135-145 Panel [address] [place] [address] [phone] Potassium 3.8 mmol/L Normal 3.5-5.0 Chloride 90 mmol/L Low 101-111 Co2 Carbon Dioxide 31 mmol/L Normal 22-32 Anion Gap 9 mmol/L Normal 2-11 Glucose 129 mg/dL High 70-100 Blood Urea Nitrogen 15 mg/dL Normal 6-24 Creatinine 1.00 mg/dL High 0.51-0.95 BUN/Creatinine Ratio 15.0 Normal 8-20 Calcium 9.1 mg/dL Normal 8.6-10.3 Egfr Non- 53.9 >60 Egfr 65.2 >60 6 Laboratory test 06/15/2019 [facility] Magnesium 2.1 mg/dL Normal 1.9-2.7 finding [address] [place] [address] [phone] Lipid Profile 06/12/2019 [facility] Triglycerides 61 mg/dL 7 (Trig/Chol/HDL) [address] [place] [address] [phone] Cholesterol 219 mg/dL 8 HDL Cholesterol 84.6 mg/dL 9 LDL Cholesterol 122 mg/dL 10 Basic Metabolic 04/26/2019 [facility] Sodium 137 mmol/L Normal 135-145 Panel [address] [place] [address] [phone] Potassium 4.4 mmol/L Normal 3.5-5.0 Chloride 101 mmol/L Normal 101-111 Co2 Carbon Dioxide 30 mmol/L Normal 22-32 Anion Gap 6 mmol/L Normal 2-11 Glucose 103 mg/dL High 70-100 Blood Urea Nitrogen 17 mg/dL Normal 6-24 Creatinine 0.88 mg/dL Normal 0.51-0.95 BUN/Creatinine Ratio 19.3 Normal 8-20 Calcium 9.2 mg/dL Normal 8.6-10.3 Egfr Non- 62.5 >60 Egfr 75.6 >60 11 Laboratory test 04/26/2019 [facility] Magnesium 2.4 mg/dL Normal 1.9-2.7 finding [address] [place] [address] [phone] 1 Because ethnic data is not always [...] dialysis) Procedures Date Code Description Status 09/05/2019 51785 EKG Tracing & Interpretation Completed 09/03/2019 45602 ECHO Transthoracic, Real-Time 2D With Doppler And Completed Color Flow 07/27/2019 90188 Pulmonary Stress Testing[facility] Measurement Heart Rate, Completed Oximetry 07/03/2019 66381 EKG Tracing & Interpretation Completed 05/10/2019 71895 Inj/Aspir Major JT Or Bursa W/ US Completed 07/03/2018 [id number] Bone Mineral Density Test Completed 07/03/2018 [id number] Mammogram Completed 07/01/2017 [id number] Mammogram Completed 06/18/2016 [id number] Mammogram Completed 12/06/2014 [id number] Mammogram Completed 02/27/2013 [id number] Colonoscopy Completed 06/10/2011 [id number] Bone Mineral Density Test Completed 06/10/2011 [id number] Mammogram Completed 11/04/2005 [id number] Mammogram Completed Medical Devices Description No Information Available Encounters Type Date Location Provider Dx Diagnosis Office Visit 09/05/2019 [facility] Leslee Macias, I35.0 Nonrheumatic aortic 8:30a N.P. (valve) stenosis Z01.818 Encounter for other preprocedural examination I10 Essential (primary) hypertension G47.33 Obstructive sleep apnea (adult) (pediatric) E78.00 Pure hypercholesterolemia, unspecified Office Visit 08/14/2019 [facility] Summer Buckley, M19.011 Primary 1:15p Orthopedics at [facility], [place] right shoulder Office Visit 08/09/2019 [facility] And Kirstin J45.30 Mild persistent 2:00p Sleep Services OSCAR Watson asthma, Of [employer] uncomplicated Z86.711 Personal history of pulmonary embolism R09.02 Hypoxemia G47.33 Obstructive sleep apnea (adult) (pediatric) Z01.818 Encounter for other preprocedural examination Office Visit 07/27/2019 [facility] And Kirstin J45.30 Mild persistent 9:30a Sleep Services Of OSCAR Watson asthma, [employer] uncomplicated Z86.711 Personal history of pulmonary embolism R09.02 Hypoxemia G47.33 Obstructive sleep apnea (adult) (pediatric) G47.00 Insomnia, unspecified Office Visit 07/03/2019 10:40a [facility] Oziel Flores I10 Essential (primary) Zoie Slaughter hypertension E78.00 Pure hypercholesterolemia, unspecified I35.0 Nonrheumatic aortic (valve) stenosis Office Visit 06/15/2019 11:40a [facility] Internal Apryl Ahmetn, R25.2 Cramp and spasm Medicine - Ccmob N.P. Office Visit 04/10/2019 10:30a [facility] Leslee Dumont I35.0 Nonrheumatic Of Shannan Foster, N.P. aortic (valve) stenosis I10 Essential (primary) hypertension I45.10 Unspecified right bundle-branch block I25.2 Old myocardial infarction E78.00 Pure hypercholesterolemia, unspecified R60.9 Edema, unspecified Assessments Date Code Description Provider 09/05/2019 I35.0 Nonrheumatic aortic (valve) stenosis Leslee SMelia Macias, N.P. 09/05/2019 Z01.818 Encounter for other preprocedural Leslee Macias, N.P. examination 09/05/2019 I10 Essential (primary) hypertension Leslee SMelia Macias, N.P. 09/05/2019 G47.33 Obstructive sleep apnea (adult) Leslee SMelia Macias, N.P. (pediatric) 09/05/2019 E78.00 Pure hypercholesterolemia, unspecified Leslee S. Gilberto, N.P. 09/03/2019 I35.0 Nonrheumatic aortic (valve) stenosis [place] [facility] Schedule 08/31/2019 Z01.818 Encounter for other [...] 04/10/2019 I35.0 Nonrheumatic aortic (valve) stenosis Leslee Macias, N.P. 04/10/2019 I10 Essential (primary) hypertension Leslee Macias, N.P. 04/10/2019 I45.10 Unspecified right bundle-branch block Leslee Macias, N.P. 04/10/2019 I25.2 Old myocardial infarction Leslee Macias, N.P. 04/10/2019 E78.00 Pure hypercholesterolemia, unspecified Leslee Macias, N.P. 04/10/2019 R60.9 Edema, unspecified Leslee Macias, N.P. Plan of Treatment Future Appointment(s):03/04/2020 1:40 pm - Oziel Slaughter M.D. at [facility]09/18/2019 9:30 am - RUBY Cobian at [facility] at Uapmrx6008/11/2020 1:30 pm - Kirstin Watson NP at [facility]09/18/2019 9:30 am - Summer Buckley MD at [facility] at Hyikwo3309/06/2019 2:30 pm - Summer Buckley MD at [facility] at Atlrnb8412/25/2019 2:00 pm - Apryl Llanes N.P. at [facility] Internal Medicine - [facility]09/05/2019 - Leslee Macias, N.P.I35.0 Nonrheumatic aortic ( valve) stenosisFollow up:02/2020 JFMRecommendations:Valve tightness is the same as the beginning of September ok for surgery.Z01.818 Encounter for other preprocedural chvhqcvkxvqP12 Essential (primary) eeotoicyjdpeQ40.33 Obstructive sleep apnea (adult) (pediatric)E78.00 Pure hypercholesterolemia, unspecifiedRecommendations:LDL 105 keep exercising as you are doing. Functional Status Description No Information Available Mental Status Description No Information Available Referrals Description No Information Available
--- OUTSIDE RECORDS SUMMARY | 2019-09-18 06:05 | XMS REPORT | Continuity of Care Document ---
:1940 External Reference #:[id number] Author Name Kirstin Watson NP (transmitted by agent of provider Judy Matos) Address [address] [facility], [address] [place] [id number] Care Team Providers Name Role Phone Ramirez Murguia MD - Orthopaedic Care Team Information Tool And Equipment Rental Clerk Surgery Oziel Slaughter MD - Cardiovascular Care Team Information Tool And Equipment Rental Clerk [phone] Disease Maryjo Dickerson MD - Internal Care Team Information Tool And Equipment Rental Clerk [phone] Medicine Problems Active Problems Provider Date Benign [...] Use Denies Drug Use Smoking Status Reviewed: 08/09/19 Patient has never smoked Exercise Type/Frequency Exercises [...] o2. Zetia 1 by mouth every 90tabs Leslee Macias, 06/13/2019 10mg Tablets day N.P. Cpap Mask And Pls provide 1units Mellisa [...] in the N.P. Capsules evening as needed Ketoconazole apply once daily to 60units Apryl Llanes, 12/05/2017 2% affected area N.P. Cream Verapamil HCL ER 1 tablet daily 90caps I10 Oziel Flores 09/20/2017 Zoie Slaughter 180mg Caps ER 24HR Amlodipine Besylate 1 tabs by mouth 90tabs Oziel Flores 07/06/2016 daily (Use with 2.5 Zoie Slaughter 5mg Tablets mg pill) Compression knee high stockings 2units R60.0 Apryl Llanes, 04/08/2016 Stockings 20 - 30 mm N.P. Misc Aldactone 2 tabs daily 180tabs Oziel Flores 10/21/2004 25mg Zoie Slaughter Tablets Vitamin D by mouth everyday Unknown 1000Unit Tablets Calcium Magnesium Unknown Zinc 750 300-300mg Tablets Gabapentin 1 capsule at dinner 270caps Apryl Llanes, 300mg time, 2 capsules N.P. Capsules before bed Tylenol 8 Hour 1 tab every 6 hours Unknown as needed for pain 650mg Tablets ER Eliquis take one tab by Unknown 2.5mg mouth twice daily Tablets Vitamin C 1 by mouth every Unknown 500mg day Capsules History Medications Amoxicillin/Clavulanate one tablet by 20tabs J45.41 Soquel 02/16/2019 - Potassium mouth twice Varn, N.P. 02/26/2019 875-125mg Tablets daily for 10 days Fluticasone Propionate 2 sprays each 16units J45.41 Soquel 02/16/2019 - 50mcg/Act nostril daily Varn, N.P. 03/02/2019 Suspension as needed Tobramycin 1 drop in 5ml H10.89 Soquel 02/16/2019 - 0.3% Solution each eye Varn, N.P. 02/23/2019 every 4 hours x 7 days Amlodipine Besylate 1 by mouth 30tabs Oziel Flores 02/09/2019 - 2.5mg Tablets every day Zoie Slaughter 04/10/2019 (use with the 5 mg pill daily ) Medications Administered in Office Medication SIG Qnty Indications Ordering Provider Date Triamcinolone (Kenalog) Summer Buckley MD 05/10/2019 Injection Triamcinolone (Kenalog) Summer Buckley MD 11/09/2018 Injection Triamcinolone (Kenalog) Summer Buckley MD 07/13/2018 Injection Triamcinolone (Kenalog) Nicole Mccarthy PA-C 04/03/2018 Injection Depomedrol 40MG Amanda Barrios M.D. 09/08/2016 Injection Triamcinolone (Yonyalog) Summer Buckley MD 04/27/2016 Injection Triamcinolone (Kenalog) [...] Portillo RPA-C 06/08/2010 Injection Depomedrol 40MG Alex Shukal M.D. 12/15/2009 Injection Immunizations CPT Code Status Date Vaccine Reaction Lot # [id number] Given 07/11/2019 Zoster (Shingles) Vaccine (HZV), Recombinant, Subunit, Adjuvanted 79470 Given 07/11/2019 Influenza Virus Vaccine, Quadrivalent, Split, Preservative Free 44984 Given 06/22/2018 Influenza Virus Vaccine, No immediate [id number] Quadrivalent, Split, reaction...jh Preservative Free 02065 Given 06/20/2017 Influenza Virus Vaccine, No immediate [id number] Quadrivalent, Split, reaction..jh Preservative Free 43744 Given 06/16/2016 Influenza Virus Vaccine, no reaction noted ... [id number] Quadrivalent, Split, hh Preservative Free 40493 Given 06/28/2015 Influenza Virus Vaccine, [id number] Quadrivalent, Split, Preservative Free 82351 Given 11/28/2014 Tdap - [id number] Tetanus/Diptheria/Acellular Pertussis 54015 Given 11/28/2014 Pneumococcal Conjugate [id number] Vaccine 13 Valent For Intramuscular Use 10530 Given 06/26/2014 Influenza Virus Vaccine, [id number] Quadrivalent, Split, Preservative Free 01760 Given 06/21/2013 Flu Vaccine Split Virus [id number] Preservative Free For Indiv 3Yr Older Q2038 Given 05/25/2012 Fluzone Vaccine [id number] Q2035 Given 06/10/2011 Afluria Vaccine [id number] 69521 Given 06/30/2010 Influenza Virus 3Yrs & Over [id number] 32110 Given 06/26/2010 Influenza Virus 3Yrs & Over 64132 Given 10/07/2009 Influenza Virus Vaccine, Pandemic Formulation 30469 Given 10/07/2009 Administration Swine Flu Shot 44577 Given 07/08/2009 Influenza Virus 3Yrs & Over 61433 Given 07/05/2008 Influenza Virus 3Yrs & Over 55985 Given 07/05/2008 Influenza Virus 3Yrs & Over 30054 Given 11/15/2007 Zoster (Zostavax) 56877 Given 11/15/2007 Zoster (Zostavax) 42656 Given 11/15/2007 Pneumonia Vaccine 01496 Given 07/11/2007 Influenza Virus 3Yrs & Over 94517 Given 07/11/2007 Influenza Virus 3Yrs & Over 84090 Given 08/15/2006 Influenza Virus 3Yrs & Over 98962 Given 08/15/2006 Influenza Virus 3Yrs & Over Vital Signs Date Vital Result Comment 08/09/2019 1:53pm Height 60 inches 5'0" Weight 199.00 lb Heart Rate 67 /min BP Systolic Sitting 126 mmHg BP Diastolic Sitting 60 mmHg O2 % BldC Oximetry 95 % BMI (Body Mass Index) 38.9 kg/m2 07/27/2019 9:27am Height 60 inches 5'0" Weight 196.00 lb Heart Rate 64 /min BP Systolic 150 mmHg BP Diastolic 70 mmHg O2 % BldC Oximetry 97 % BMI (Body Mass Index) 38.3 kg/m2 Results Test Acquired Date Facility Test Result H/L Range Note Order 07/27/2019 [facility] In-House 6 Minute <pending> Walk Basic Metabolic 06/15/2019 [facility] Sodium 130 mmol/L Low 135-145 Panel [address] [place] [address] [phone] Potassium 3.8 mmol/L Normal 3.5-5.0 Chloride 90 mmol/L Low 101-111 Co2 Carbon Dioxide 31 mmol/L Normal 22-32 Anion Gap 9 mmol/L Normal 2-11 Glucose 129 mg/dL High 70-100 Blood Urea Nitrogen 15 mg/dL Normal 6-24 Creatinine 1.00 mg/dL High 0.51-0.95 BUN/Creatinine Ratio 15.0 Normal 8-20 Calcium 9.1 mg/dL Normal 8.6-10.3 Egfr Non- 53.9 >60 Egfr 65.2 >60 1 Laboratory test 06/15/2019 [facility] Magnesium 2.1 mg/dL Normal 1.9-2.7 finding [address] [place] [address] [phone] Lipid Profile 06/12/2019 [facility] Triglycerides 61 mg/dL 2 (Trig/Chol/HDL) [address] [place] [address] [phone] Cholesterol 219 mg/dL 3 HDL Cholesterol 84.6 mg/dL 4 LDL Cholesterol 122 mg/dL 5 Basic Metabolic 04/26/2019 [facility] Sodium 137 mmol/L Normal 135-145 Panel [address] [place] [address] [phone] Potassium 4.4 mmol/L Normal 3.5-5.0 Chloride 101 mmol/L Normal 101-111 Co2 Carbon Dioxide 30 mmol/L Normal 22-32 Anion Gap 6 mmol/L Normal 2-11 Glucose 103 mg/dL High 70-100 Blood Urea Nitrogen 17 mg/dL Normal 6-24 Creatinine 0.88 mg/dL Normal 0.51-0.95 BUN/Creatinine Ratio 19.3 Normal 8-20 Calcium 9.2 mg/dL Normal 8.6-10.3 Egfr Non- 62.5 >60 Egfr 75.6 >60 6 Laboratory test 04/26/2019 [facility] Magnesium 2.4 mg/dL Normal 1.9-2.[address] [place] [address] [phone] Influenza A & B 02/16/2019 [facility] Influenza A NEGATIVE Negative [address] [place] [address] [phone] Influenza B Molecular NEGATIVE Negative 1 Because ethnic data is not always [...] 5 Kidney failure <15 (or dialysis) 7 Supervisor Public Message Service: [id number] Procedures Date Code Description Status 07/27/2019 79313 [facility] Measurement Heart Rate, Completed Oximetry 07/03/2019 91246 EKG Tracing & Interpretation Completed 05/10/2019 21763 Inj/Aspir Major JT Or Bursa W/ US Completed 07/03/2018 [id number] Bone Mineral Density Test Completed 07/03/2018 [id number] Mammogram Completed 07/01/2017 [id number] Mammogram Completed 06/18/2016 [id number] Mammogram Completed 12/06/2014 [id number] Mammogram Completed 02/27/2013 [id number] Colonoscopy Completed 06/10/2011 [id number] Bone Mineral Density Test Completed 06/10/2011 [id number] Mammogram Completed 11/04/2005 [id number] Mammogram Completed Medical Devices Description No Information Available Encounters Type Date Location Provider Dx Diagnosis Office Visit 07/03/2019 [facility] Oziel Flores I10 Essential ( primary) 10:40a Zoie Slaughter hypertension E78.00 Pure hypercholesterolemia, unspecified I35.0 Nonrheumatic aortic (valve) stenosis Office Visit 06/15/2019 11:40a [facility] Internal Apryl Llanes, R25.2 Cramp and spasm Medicine - Ccmob N.P. Office Visit 04/10/2019 10:30a [facility] Leslee Dumont I35.0 Nonrheumatic Of Shannan Macias N.P. aortic (valve) stenosis I10 Essential (primary) hypertension I45.10 Unspecified right bundle-branch block I25.2 Old myocardial infarction E78.00 Pure hypercholesterolemia, unspecified R60.9 Edema, unspecified Office Visit 02/16/2019 4:20p [facility] Internal Apryl Llanes, J45.41 Moderate Medicine - N.P. persistent asthma Ccmob with (acute) exacerbation H10.89 Other conjunctivitis Assessments Date Code Description Provider 08/09/2019 J45.30 Mild persistent asthma, uncomplicated Kirstin [...] K43.9 Ventral hernia without obstruction or Apryl Llanes, N.P. gangrene 06/15/2019 R25.2 Cramp and spasm Apryl Llanes, N.P. 05/10/2019 M19.011 Primary osteoarthritis, right shoulder Summer Buckley MD 04/10/2019 I35.0 Nonrheumatic aortic (valve) stenosis Leslee Macias N.P. 04/10/2019 I10 Essential (primary) hypertension Leslee Macias, N.P. 04/10/2019 I45.10 Unspecified right bundle-branch block Leslee Macias N.P. 04/10/2019 I25.2 Old myocardial infarction Leslee Macias N.P. 04/10/2019 E78.00 Pure hypercholesterolemia, unspecified Leslee Macias, N.P. 04/10/2019 R60.9 Edema, unspecified Leslee Macias, N.P. 02/16/2019 J45.41 Moderate persistent asthma with (acute) Apryl Llanes, N.P. exacerbation 02/16/2019 M19.011 Primary osteoarthritis, right shoulder Summer Buckley MD 02/16/2019 H10.89 Other conjunctivitis Apryl Llanes, N.P. 02/16/2019 Z01.818 Encounter for other preprocedural Summer Buckley MD examination Plan of Treatment Future Appointment(s):08/11/2020 1:30 pm - Kirstin Watson NP at [facility]09/05/2019 8:30 am - Leslee Macias, N.P. at [facility]08/30/2019 1:00 pm - Andrew Champan NP at [facility] Internal Medicine - [facility]09/18/2019 9:30 am - Nicole Mccarthy PA-C at [facility] at Zrehif6609/18/2019 9:30 am - Summer Buckley MD at [facility] at Wqqmxa0909/06/2019 2:30 pm - Summer Buckley MD at [facility] at Irkomo8608/14/2019 1:15 pm - Summer Buckley MD at [facility] at Ypgmyo8609/03/2019 10:00 am - [place] [facility] Schedule at [place] Hgiugibujy58/07/2020 2:00 pm - Apryl Llanes N.P. at [facility] - Kirstin Watson, NPJ45.30 Mild persistent asthma, uncomplicatedFollow up:1 yearZ86.711 Personal history of pulmonary rwxrzbxvR41.02 PgsfbqofjJ48.33 Obstructive sleep apnea (adult) (pediatric) Z01.818 Encounter for other preprocedural examinationRecommendations:Please remember to bring your CPAP with you when you go to the hospital for your procedure Functional Status Description No Information Available Mental Status Description No Information Available Referrals Description No Information Available
--- OUTSIDE RECORDS SUMMARY | 2019-09-18 06:05 | XMS REPORT | Continuity of Care Document ---
:1940 External Reference #:[id number] Author Name Summer Buckley MD (transmitted by agent of provider Kirstin Luevano) Address [address] [place] [address] Care Team Providers Name Role Phone Ramirez Murguia MD - Orthopaedic Care Team Information Mailing Clerk [phone] Surgery Oziel Slaughter MD - Cardiovascular Care Team Information Mailing Clerk Disease Maryjo Dickerson MD - Internal Care Team Information Mailing Clerk [phone] Medicine Problems Active Problems Provider Date Benign [...] Use Denies Drug Use Smoking Status Reviewed: 08/14/19 Patient has never smoked Exercise Type/Frequency Exercises [...] ER 1 tablet daily 90caps I10 Oziel GreenMelia 09/20/2017 Zoie Slaughter 180mg Caps ER 24HR Amlodipine Besylate 1 tabs by mouth 90tabs Oziel GreenMelia 07/06/2016 daily (Use with 2.5 Zoie Slaughter 5mg Tablets mg pill) Compression knee high stockings 2units R60.0 Apryl Mario Alberto, 04/08/2016 Stockings 20 - 30 mm N.P. Misc Aldactone 2 tabs daily 180tabs Oziel NormaMelia 10/21/2004 25mg Zoie Slaughter Tablets Vitamin D [...] Medications Amoxicillin/Clavulanate one tablet by 20tabs J45.41 [place] 02/16/2019 - Potassium mouth twice Varn, N.P. 02/26/2019 875-125mg Tablets daily for 10 days Fluticasone Propionate 2 sprays each 16units J45.41 [place] 02/16/2019 - 50mcg/Act nostril daily Varn, N.P. 03/02/2019 Suspension as needed Tobramycin 1 drop in 5ml H10.89 [place] 02/16/2019 - 0.3% Solution each eye Varn, N.P. 02/23/2019 every 4 hours x 7 days Medications Administered in Office Medication SIG Qnty [...] Code Status Date Vaccine Reaction Lot # [id number] Given 07/11/2019 Zoster (Shingles) Vaccine (HZV), Recombinant, Subunit, Adjuvanted 21631 Given 07/11/2019 Influenza Virus Vaccine, Quadrivalent, Split, Preservative Free 70418 Given 06/22/2018 Influenza Virus Vaccine, No immediate [id number] Quadrivalent, Split, reaction...jh Preservative Free 46414 Given 06/20/2017 Influenza Virus Vaccine, No immediate [id number] Quadrivalent, Split, reaction..jh Preservative Free 06088 Given 06/16/2016 Influenza Virus Vaccine, no reaction noted ... [id number] Quadrivalent, Split, Preservative Free 86421 Given 06/28/2015 Influenza Virus Vaccine, [id number] Quadrivalent, Split, Preservative Free 44977 Given 11/28/2014 Tdap - [id number] Tetanus/Diptheria/Acellular Pertussis 44979 Given 11/28/2014 Pneumococcal Conjugate [id number] Vaccine 13 Valent For Intramuscular Use 99528 Given 06/26/2014 Influenza Virus Vaccine, [id number] Quadrivalent, Split, Preservative Free 65422 Given 06/21/2013 Flu Vaccine Split Virus [id number] Preservative Free For Indiv 3Yr Older Q2038 Given 05/25/2012 Fluzone Vaccine [id number] Q2035 Given 06/10/2011 Afluria Vaccine [id number] 76078 Given 06/30/2010 Influenza Virus 3Yrs & Over [id number] 74949 Given 06/26/2010 Influenza Virus 3Yrs & Over 18143 Given 10/07/2009 Influenza Virus Vaccine, Pandemic Formulation 42458 Given 10/07/2009 Administration Swine Flu Shot 69553 Given 07/08/2009 Influenza Virus 3Yrs & Over 09749 Given 07/05/2008 Influenza Virus 3Yrs & Over 36034 Given 07/05/2008 Influenza Virus 3Yrs & Over 41388 Given 11/15/2007 Zoster (Zostavax) 67042 Given 11/15/2007 Zoster (Zostavax) 27606 Given 11/15/2007 Pneumonia Vaccine 45208 Given 07/11/2007 Influenza Virus 3Yrs & Over 26097 Given 07/11/2007 Influenza Virus 3Yrs & Over 53432 Given 08/15/2006 Influenza Virus 3Yrs & Over 43823 Given 08/15/2006 Influenza Virus 3Yrs & Over Vital Signs Date Vital Result Comment 08/14/2019 1:20pm Height 60 inches 5'0" Weight 196.00 lb Heart Rate 80 /min BP Systolic 122 mmHg BP Diastolic 68 mmHg Respiratory Rate 18 /min Pain Level 0 BMI (Body Mass Index) 38.3 kg/m2 08/09/2019 1:53pm Height 60 inches 5'0" Weight 199.00 lb Heart Rate 67 /min BP Systolic Sitting 126 mmHg BP Diastolic Sitting 60 mmHg O2 % BldC Oximetry 95 % BMI (Body Mass Index) 38.9 kg/m2 Results Test Acquired Date Facility Test Result H/L Range Note Lipid Panel - 08/13/2019 [facility] Creatine 37 U/L Normal 10- [address] Kinase(CK) [place] [address] [phone] Comp Metabolic 08/13/2019 [facility] Sodium 136 mmol/L Normal 135-145 Panel [address] [place] [address] [phone] Potassium 4.1 mmol/L Normal 3.5-5.0 Chloride 98 [...] Egfr 76.6 >60 1 Lipid Profile 08/13/2019 [facility] Triglycerides 92 mg/dL 2 (Trig/Chol/HDL) [address] [place] [address] [phone] Cholesterol 191 mg/dL 3 HDL Cholesterol 67.5 mg/dL 4 LDL Cholesterol 105 mg/dL 5 Order 07/27/2019 [facility] In-House 6 Minute Walk <pending> Basic Metabolic 06/15/2019 [facility] Sodium 130 mmol/L Low 135-145 Panel [address] [place] [address] [phone] Potassium 3.8 mmol/L Normal 3.5-5.0 Chloride 90 mmol/L Low 101-111 Co2 Carbon Dioxide 31 mmol/L Normal 22-32 Anion Gap 9 mmol/L Normal 2-11 Glucose 129 mg/dL High 70-100 Blood Urea Nitrogen 15 mg/dL Normal 6-24 Creatinine 1.00 mg/dL High 0.51-0.95 BUN/Creatinine Ratio 15.0 Normal 8-20 Calcium 9.1 mg/dL Normal 8.6-10.3 Egfr Non- 53.9 >60 Egfr 65.2 >60 6 Laboratory test 06/15/2019 [facility] Magnesium 2.1 mg/dL Normal 1.9-2.7 finding [address] [place] [address] [phone] Lipid Profile 06/12/2019 [facility] Triglycerides 61 mg/dL 7 (Trig/Chol/HDL) [address] [place] [address] [phone] Cholesterol 219 mg/dL 8 HDL Cholesterol 84.6 mg/dL 9 LDL Cholesterol 122 mg/dL 10 Basic Metabolic 04/26/2019 [facility] Sodium 137 mmol/L Normal 135-145 Panel [address] [place] [address] [phone] Potassium 4.4 mmol/L Normal 3.5-5.0 Chloride 101 mmol/L Normal 101-111 Co2 Carbon Dioxide 30 mmol/L Normal 22-32 Anion Gap 6 mmol/L Normal 2-11 Glucose 103 mg/dL High 70-100 Blood Urea Nitrogen 17 mg/dL Normal 6-24 Creatinine 0.88 mg/dL Normal 0.51-0.95 BUN/Creatinine Ratio 19.3 Normal 8-20 Calcium 9.2 mg/dL Normal 8.6-10.3 Egfr Non- 62.5 >60 Egfr 75.6 >60 11 Laboratory 04/26/2019 [facility] Magnesium 2.4 mg/dL Normal 1.9-2.7 test finding [address] [place] [address] [phone] Influenza A & 02/16/2019 [facility] Influenza A NEGATIVE Negative 12 B Request [address] [facility] [place] [address] [phone] Influenza B Molecular NEGATIVE Negative 1 Because [...] 15-29 5 Kidney failure <15 (or dialysis) 12 [employer] Bagger: [id number] Procedures Date Code Description Status 07/27/2019 16917 Pulmonary Stress Testing[facility] Inc Measurement Heart Rate, Completed Oximetry 07/03/2019 28879 EKG Tracing & Interpretation Completed 05/10/2019 86240 Inj/Aspir Major JT Or Bursa W/ US Completed 07/03/2018 [id number] Bone Mineral Density Test Completed 07/03/2018 [id number] Mammogram Completed 07/01/2017 [id number] Mammogram Completed 06/18/2016 [id number] Mammogram Completed 12/06/2014 [id number] Mammogram Completed 02/27/2013 [id number] Colonoscopy Completed 06/10/2011 [id number] Bone Mineral Density Test Completed 06/10/2011 [id number] Mammogram Completed 11/04/2005 [id number] Mammogram Completed Medical Devices Description No Information Available Encounters Type Date Location Provider Dx Diagnosis Office Visit 07/27/2019 [facility] J45.30 Mild persistent 9:30a [facility] asthma, Equities Analyst uncomplicated Z86.711 Personal history of pulmonary embolism R09.02 Hypoxemia G47.33 Obstructive sleep apnea (adult) (pediatric) G47.00 Insomnia, unspecified Office Visit 07/03/2019 10:40a [facility] Oziel Flores I10 Essential (primary) Zoie Slaughter hypertension E78.00 Pure hypercholesterolemia, unspecified I35.0 Nonrheumatic aortic (valve) stenosis Office Visit 06/15/2019 11:40a [facility] Internal Apryl Llanes, R25.2 Cramp and spasm Medicine - Ccmob N.P. Office Visit 04/10/2019 10:30a [facility] Leslee Dumont I35.0 Nonrheumatic Of [facility] Braden Macias aortic (valve) stenosis I10 Essential (primary) hypertension I45.10 Unspecified right bundle-branch block I25.2 Old myocardial infarction E78.00 Pure hypercholesterolemia, unspecified R60.9 Edema, unspecified Office Visit 02/16/2019 4:20p [employer] Internal Apryl Mario Alberto, J45.41 Moderate Medicine - N.P. persistent asthma Ccmob with (acute) exacerbation H10.89 Other conjunctivitis Assessments Date Code Description Provider 08/14/2019 M19.011 Primary osteoarthritis, right shoulder Summer Buckley MD 08/09/2019 J45.30 Mild persistent asthma, uncomplicated Kirstin Watson NP 08/09/2019 Z86.711 Personal history of pulmonary embolism Kirstin Watson NP 08/09/2019 R09.02 Hypoxemia Kirstin Watson, [facility] 08/09/2019 G47.33 Obstructive sleep apnea (adult) Kirstin Watson NP (pediatric) 08/09/2019 Z01.818 Encounter for other preprocedural Kirstin Watson NP examination 07/27/2019 J45.30 Mild persistent asthma, uncomplicated Kirstin Watson, TRAFFIC INSPECTOR 07/27/2019 Z86.711 Personal history of pulmonary embolism Kirstin Watson NP 07/27/2019 R09.02 Hypoxemia Kirstin Watson, OSCAR 07/27/2019 G47.33 Obstructive sleep apnea (adult) Kirstin Watson NP (pediatric) 07/27/2019 G47.00 Insomnia, unspecified Kirstin Watson NP 07/03/2019 I10 Essential (primary) hypertension Oziel Slaughter M.D. 07/03/2019 E78.00 Pure hypercholesterolemia, unspecified Oziel Slaughter M.D. 07/03/2019 I35.0 Nonrheumatic aortic (valve) stenosis Oziel Slaughter M.D. 06/25/2019 Z00.00 Encounter for general adult medical Apryl Llanes N.P. examination without abnormal findings 06/25/2019 Z12.31 Encounter for screening mammogram for Apryl Llanes N.PMelia malignant neoplasm of breast 06/25/2019 I10 Essential (primary) hypertension Apryl Llanes N.P. 06/25/2019 E78.00 Pure hypercholesterolemia, unspecified Apryl Varn, N.P. 06/25/2019 I35.0 Nonrheumatic aortic (valve) stenosis Apryl Varn, N.P. 06/25/2019 G47.33 Obstructive sleep apnea (adult) Apryl Varn, N.P. (pediatric) 06/25/2019 J45.30 Mild persistent asthma, uncomplicated Apryl Varn, N.P. 06/25/2019 K21.9 Gastro-esophageal reflux disease without Apryl Varn, N.P. esophagitis 06/25/2019 R60.0 Localized edema Apryl Varn, N.P. 06/25/2019 Z86.711 Personal history of pulmonary embolism Apryl Llanes, N.P. 06/25/2019 K43.9 Ventral hernia without obstruction or Apryl Varn, N.P. gangrene 06/15/2019 R25.2 Cramp and spasm Apryl Llanes, N.P. 05/10/2019 M19.011 Primary osteoarthritis, right shoulder Summer Buckley MD 04/10/2019 I35.0 Nonrheumatic aortic (valve) stenosis Leslee Macias N.P. 04/10/2019 I10 Essential (primary) hypertension Leslee Macias N.P. 04/10/2019 I45.10 Unspecified right bundle-branch block Leslee Macias N.P. 04/10/2019 I25.2 Old myocardial infarction Leslee Macias N.P. 04/10/2019 E78.00 Pure hypercholesterolemia, unspecified Leslee Macias, N.P. 04/10/2019 R60.9 Edema, unspecified Leslee Macias, N.P. 02/16/2019 J45.41 Moderate persistent asthma with (acute) Apryl Varn, N.P. exacerbation 02/16/2019 M19.011 Primary osteoarthritis, right shoulder Summer Buckley MD 02/16/2019 H10.89 Other conjunctivitis Apryl Llanes, N.P. 02/16/2019 Z01.818 Encounter for other preprocedural Summer Buckley MD examination Plan of Treatment Future Appointment(s):08/31/2019 10:00 am - Dinora Gregorio MD at [facility] Internal Medicine - [facility]08/11/2020 1:30 pm - Kirstin Watson NP at [facility]09/05/2019 8:30 am - Leslee Macias N.Anabel. at [facility]09/18/2019 9:30 am - Nicole Mccarthy PA-C at [facility] at Yzdclu7909/18/2019 9:30 am - Summer Buckley MD at [facility] at Ttgndx2709/06/2019 2:30 pm - Summer Buckley MD at [facility] at [id number] 10:00 am - [place] [facility] at [facility]12/25/2019 2:00 pm - Apryl Llanes N.Anabel. at [facility] Internal Medicine - [facility]08/14/2019 - Summer Buckley , MDM19.011 Primary osteoarthritis, right shoulderNew Xrays:CT Extremity Upper Right Wo, Ordered: 08/14/19Follow up:Follow up: h and p Functional Status Description No Information Available Mental Status Description No Information Available Referrals Description No Information Available
--- OUTSIDE RECORDS SUMMARY | 2019-09-18 06:05 | XMS REPORT | Continuity of Care Document ---
:1940 External Reference #:[id number] Author Name Dinora Gregorio MD (transmitted by agent of provider Nicky Dumont) Address [address], [place] [address] Care Team Providers Name Role Phone Ramirez Murguia MD - Orthopaedic Care Team Information Director Of Mechanical Engineering [phone] Surgery Oziel Slaughter MD - Cardiovascular Care Team Information Director Of Mechanical Engineering Disease Maryjo Dickerson MD - Internal Care Team Information Director Of Mechanical Engineering [phone] Medicine Problems Active Problems Provider Date Benign [...] Use Denies Drug Use Smoking Status Reviewed: 08/31/19 Patient has never smoked Exercise Type/Frequency Exercises [...] M.D. 08/27/2011 Injection Depomedrol 80MG Opal Portillo RPA-Amira 03/31/2011 Injection Depomedrol 40MG Alex Shukla M.D. 11/11/2010 Injection Depomedrol 80MG Opal Portillo RPA-C 06/08/2010 Injection Depomedrol 40MG Alex Shukla M.D. 12/15/2009 Injection Immunizations CPT Code Status Date Vaccine Reaction Lot # 11926 Given 07/11/2019 Zoster (Shingles) Vaccine (HZV), Recombinant, Subunit, Adjuvanted 77578 Given 07/11/2019 Influenza Virus Vaccine, Quadrivalent, Split, Preservative Free 85826 Given 06/22/2018 Influenza Virus Vaccine, No immediate [id number] Quadrivalent, Split, reaction...jh Preservative Free 61214 Given 06/20/2017 Influenza Virus Vaccine, No immediate [id number] Quadrivalent, Split, reaction..jh Preservative Free 71110 Given 06/16/2016 Influenza Virus Vaccine, no reaction noted ... [id number] Quadrivalent, Split, hh Preservative Free 46748 Given 06/28/2015 Influenza Virus Vaccine, [id number] Quadrivalent, Split, Preservative Free 26068 Given 11/28/2014 Tdap - [id number] Tetanus/Diptheria/Acellular Pertussis 53617 Given 11/28/2014 Pneumococcal Conjugate [id number] Vaccine 13 Valent For Intramuscular Use 47024 Given 06/26/2014 Influenza Virus Vaccine, [id number] Quadrivalent, Split, Preservative Free 74061 Given 06/21/2013 Flu Vaccine Split Virus [id number] Preservative Free For Indiv 3Yr Older Q2038 Given 05/25/2012 Fluzone Vaccine [id number] Q2035 Given 06/10/2011 Afluria Vaccine [id number] 36387 Given 06/30/2010 Influenza Virus 3Yrs & Over [id number] 87410 Given 06/26/2010 Influenza Virus 3Yrs & Over 43417 Given 10/07/2009 Influenza Virus Vaccine, Pandemic Formulation 18097 Given 10/07/2009 Administration Swine Flu Shot 38193 Given 07/08/2009 Influenza Virus 3Yrs & Over 62253 Given 07/05/2008 Influenza Virus 3Yrs & Over 50111 Given 07/05/2008 Influenza Virus 3Yrs & Over 86244 Given 11/15/2007 Zoster (Zostavax) 29028 Given 11/15/2007 Zoster (Zostavax) 27704 Given 11/15/2007 Pneumonia Vaccine 84193 Given 07/11/2007 Influenza Virus 3Yrs & Over 78065 Given 07/11/2007 Influenza Virus 3Yrs & Over 00183 Given 08/15/2006 Influenza Virus 3Yrs & Over 09834 Given 08/15/2006 Influenza Virus 3Yrs & Over Vital Signs Date Vital Result Comment 08/31/2019 10:21am Height 60 inches 5'0" Weight 199.12 lb Heart Rate 74 /min BP Systolic 144 mmHg BP Diastolic 64 mmHg Body Temperature 97.9 F O2 % BldC Oximetry 94 % BMI (Body Mass Index) 38.9 kg/m2 08/14/2019 1:20pm Height 60 inches 5'0" Weight 196.00 lb Heart Rate 80 /min BP Systolic 122 mmHg BP Diastolic 68 mmHg Respiratory Rate 18 /min Pain Level 0 BMI (Body Mass Index) 38.3 kg/m2 Results Test Acquired Date Facility Test Result H/L Range Note Lipid Panel - 08/13/2019 [facility] Creatine 37 U/L Normal 10- [address] Kinase(CK) [place] [address] [phone] Comp Metabolic 08/13/2019 [facility] Sodium 136 mmol/L Normal 135-[address] [place] [address] [phone] Potassium 4.1 mmol/L Normal 3.5-5.0 Chloride 98 [...] Egfr 76.6 >60 1 Lipid Profile 08/13/2019 [facility] Triglycerides 92 mg/dL 2 (Trig/Chol/HDL) [address] [place] [address] [phone] Cholesterol 191 mg/dL 3 HDL Cholesterol 67.5 mg/dL 4 LDL Cholesterol 105 mg/dL 5 Order 07/27/2019 [facility] In-House 6 Minute Walk <pending> Basic Metabolic 06/15/2019 [facility] Sodium 130 mmol/L Low 135-145 Panel [address] [place] [address] [phone] Potassium 3.8 mmol/L Normal 3.5-5.0 Chloride 90 mmol/L Low 101-111 Co2 Carbon Dioxide 31 mmol/L Normal 22-32 Anion Gap 9 mmol/L Normal 2-11 Glucose 129 mg/dL High 70-100 Blood Urea Nitrogen 15 mg/dL Normal 6-24 Creatinine 1.00 mg/dL High 0.51-0.95 BUN/Creatinine Ratio 15.0 Normal 8-20 Calcium 9.1 mg/dL Normal 8.6-10.3 Egfr Non- 53.9 >60 Egfr 65.2 >60 6 Laboratory test 06/15/2019 [facility] Magnesium 2.1 mg/dL Normal 1.9-2.7 finding [address] [place] [address] [phone] Lipid Profile 06/12/2019 [facility] Triglycerides 61 mg/dL 7 (Trig/Chol/HDL) [address] [place] [address] [phone] Cholesterol 219 mg/dL 8 HDL Cholesterol 84.6 mg/dL 9 LDL Cholesterol 122 mg/dL 10 Basic Metabolic 04/26/2019 [facility] Sodium 137 mmol/L Normal 135-145 Panel [address] [place] [address] [phone] Potassium 4.4 mmol/L Normal 3.5-5.0 Chloride 101 mmol/L Normal 101-111 Co2 Carbon Dioxide 30 mmol/L Normal 22-32 Anion Gap 6 mmol/L Normal 2-11 Glucose 103 mg/dL High 70-100 Blood Urea Nitrogen 17 mg/dL Normal 6-24 Creatinine 0.88 mg/dL Normal 0.51-0.95 BUN/Creatinine Ratio 19.3 Normal 8-20 Calcium 9.2 mg/dL Normal 8.6-10.3 Egfr Non- 62.5 >60 Egfr 75.6 >60 11 Laboratory test 04/26/2019 [facility] Magnesium 2.4 mg/dL Normal 1.9-2.[address] [place] [address] [phone] 1 Because ethnic data is not always [...] (or dialysis) Procedures Date Code Description Status 07/27/2019 52767 Pulmonary Stress Testing[facility] Measurement Heart Rate, Completed Oximetry 07/03/2019 18679 EKG Tracing & Interpretation Completed 05/10/2019 69058 Inj/Aspir Major JT Or Bursa W/ US Completed 07/03/2018 [id number] Bone Mineral Density Test Completed 07/03/2018 [id number] Mammogram Completed 07/01/2017 [id number] Mammogram Completed 06/18/2016 [id number] Mammogram Completed 12/06/2014 [id number] Mammogram Completed 02/27/2013 [id number] Colonoscopy Completed 06/10/2011 [id number] Bone Mineral Density Test Completed 06/10/2011 [id number] Mammogram Completed 11/04/2005 [id number] Mammogram Completed Medical Devices Description No Information Available Encounters Type Date Location Provider Dx Diagnosis Office Visit 08/14/2019 [facility] Summer Buckley MD M19.011 Primary 1:15p at [place] osteoarthritis, right shoulder Office Visit 08/09/2019 [facility] J45.30 Mild persistent 2:00p [facility] asthma, Regional Rehabilitation Director uncomplicated Z86.711 Personal history of pulmonary embolism R09.02 Hypoxemia G47.33 Obstructive sleep apnea (adult) (pediatric) Z01.818 Encounter for other preprocedural examination Office Visit 07/27/2019 [facility] J45.30 Mild persistent 9:30a [facility] asthma, Regional Rehabilitation Director uncomplicated Z86.711 Personal history of pulmonary embolism R09.02 Hypoxemia G47.33 Obstructive sleep apnea (adult) (pediatric) G47.00 Insomnia, unspecified Office Visit 07/03/2019 10:40a [facility] Oziel FMelia I10 Essential (primary) Zoie Slaughter hypertension E78.00 Pure hypercholesterolemia, unspecified I35.0 Nonrheumatic aortic (valve) stenosis Office Visit 06/15/2019 11:40a [facility] Internal Apryl Varn, R25.2 Cramp and spasm Medicine - Ccmob N.P. Office Visit 04/10/2019 10:30a [facility] Leslee S. I35.0 Nonrheumatic Of [facility] Foster, N.P. aortic (valve) stenosis I10 Essential (primary) hypertension I45.10 Unspecified right bundle-branch block I25.2 Old myocardial infarction E78.00 Pure hypercholesterolemia, unspecified R60.9 Edema, unspecified Assessments Date Code Description Provider 08/31/2019 Z01.818 Encounter for other preprocedural Dinora [...] breast 06/25/2019 I10 Essential (primary) hypertension Apryl Leon, N.P. 06/25/2019 E78.00 Pure hypercholesterolemia, unspecified Apryl Varn, N.P. 06/25/2019 I35.0 Nonrheumatic aortic (valve) stenosis Apryl Leon, N.P. 06/25/2019 G47.33 Obstructive sleep apnea (adult) Apryl Leon, N.P. (pediatric) 06/25/2019 J45.30 Mild persistent asthma, uncomplicated Apryl Varn, N.P. 06/25/2019 K21.9 Gastro-esophageal reflux disease without Apryl Llanes, N.P. esophagitis 06/25/2019 R60.0 Localized edema Apryl Llanes, N.P. 06/25/2019 Z86.711 Personal history of pulmonary [...] Leslee Macias, N.P. Plan of Treatment Future Appointment(s):08/11/2020 1:30 pm - Kirstin Watson NP at [facility]09/05/2019 8:30 am - Leslee Macias N.P. at [facility]09/18/2019 9:30 am - Nicole Mccarthy PA-C at [facility] at Frdxgt4109/18/2019 9:30 am - Summer Buckley MD at [facility] at Swsxwy4309/06/2019 2:30 pm - Summer Buckley MD at [facility] at Vittez3009/03/2019 10:00 am - [place] [facility] Schedule at [facility]12/25/2019 2:00 pm - Apryl Llanes N.P. at [facility] Internal Medicine - [facility]08/31/2019 - Dinora Gregorio MDZ01.818 Encounter for other preprocedural nrxpgzjkqoyU03.0 Elevated blood-pressure reading, without diagnosis of [id number] Encounter for immunization Functional Status Description No Information Available Mental Status Description No Information Available Referrals Description No Information Available
--- OUTSIDE RECORDS SUMMARY | 2019-09-18 06:05 | XMS REPORT | Continuity of Care Document ---
:1940 External Reference #:[id number] Author Name Kirstin Watson NP (transmitted by agent of provider Judy Matos) Address [address] [facility], [address] [place] [phone] Care Team Providers Name Role Phone Ramirez Murguia MD - Orthopaedic Care Team Information Variety Saw Operator [phone] Surgery Oziel Slaughter MD - Cardiovascular Care Team Information Variety Saw Operator Disease Maryjo Dickerson MD - Internal Care Team Information Variety Saw Operator Medicine Problems Active Problems Provider Date Benign [...] Use Denies Drug Use Smoking Status Reviewed: 07/27/19 Patient has never smoked Exercise Type/Frequency Exercises [...] Medications Amoxicillin/Clavulanate one tablet by 20tabs J45.41 Benoit 02/16/2019 - Potassium mouth twice Varn, N.P. 02/26/2019 875-125mg Tablets daily for 10 days Fluticasone Propionate 2 sprays each 16units J45.41 Benoit 02/16/2019 - 50mcg/Act nostril daily Varn, N.P. 03/02/2019 Suspension as needed Tobramycin 1 drop in 5ml H10.89 Benoit 02/16/2019 - 0.3% Solution each eye Varn, [...] Code Status Date Vaccine Reaction Lot # [id number] Given 06/22/2018 Influenza Virus Vaccine, No immediate [id number] Quadrivalent, Split, reaction... Preservative Free 91678 Given 06/20/2017 Influenza Virus Vaccine, No immediate [id number] Quadrivalent, Split, reaction..jh Preservative Free 46343 Given 06/16/2016 Influenza Virus Vaccine, no reaction noted ... [id number] Quadrivalent, Split, Preservative Free 35415 Given 06/28/2015 Influenza Virus Vaccine, [id number] Quadrivalent, Split, Preservative Free 26474 Given 11/28/2014 Tdap - [id number] Tetanus/Diptheria/Acellular Pertussis 23299 Given 11/28/2014 Pneumococcal Conjugate [id number] Vaccine 13 Valent For Intramuscular Use 61091 Given 06/26/2014 Influenza Virus Vaccine, [id number] Quadrivalent, Split, Preservative Free 04437 Given 06/21/2013 Flu Vaccine Split Virus [id number] Preservative Free For Indiv 3Yr Older Q2038 Given 05/25/2012 Fluzone Vaccine [id number] Q2035 Given 06/10/2011 Afluria Vaccine [id number] 88514 Given 06/30/2010 Influenza Virus 3Yrs & Over [id number] 43881 Given 06/26/2010 Influenza Virus 3Yrs & Over 50435 Given 10/07/2009 Administration Swine Flu Shot 30918 Given 10/07/2009 Influenza Virus Vaccine, Pandemic Formulation 61581 Given 07/08/2009 Influenza Virus 3Yrs & Over 75219 Given 07/05/2008 Influenza Virus 3Yrs & Over 69386 Given 07/05/2008 Influenza Virus 3Yrs & Over 25329 Given 11/15/2007 Zoster (Zostavax) 76814 Given 11/15/2007 Zoster (Zostavax) 46804 Given 11/15/2007 Pneumonia Vaccine 50097 Given 07/11/2007 Influenza Virus 3Yrs & Over 27405 Given 07/11/2007 Influenza Virus 3Yrs & Over 48202 Given 08/15/2006 Influenza Virus 3Yrs & Over 46364 Given 08/15/2006 Influenza Virus 3Yrs & Over Vital Signs Date Vital Result Comment 07/27/2019 9:27am Height 60 inches 5'0" Weight 196.00 lb Heart Rate 64 /min BP Systolic 150 mmHg BP Diastolic 70 mmHg O2 % BldC Oximetry 97 % BMI (Body Mass Index) 38.3 kg/m2 07/03/2019 10:58am Height 60 inches 5'0" Weight 196.25 lb Heart Rate 76 /min BP Systolic Sitting 134 mmHg Lue large cuff BP Diastolic Sitting 64 mmHg Lue large cuff BP Systolic Standing 132 mmHg Lue BP Diastolic Standing 68 mmHg Lue Respiratory Rate 18 /min BMI (Body Mass Index) 38.3 kg/m2 Ejection Fraction 60%-65% echo 1/14/19 Results Test Acquired Date Facility Test Result H/L Range Note Order 07/27/2019 Clinical Cytopathologist In-House 6 Minute <pending> Walk Basic Metabolic 06/15/2019 [facility] Sodium 130 mmol/L Low 135-145 [address] [place] [address] [phone] Potassium 3.8 mmol/L Normal 3.5-5.0 Chloride 90 mmol/L Low 101-111 Co2 Carbon Dioxide 31 mmol/L Normal 22-32 Anion Gap 9 mmol/L Normal 2-11 Glucose 129 mg/dL High 70-100 Blood Urea Nitrogen 15 mg/dL Normal 6-24 Creatinine 1.00 mg/dL High 0.51-0.95 BUN/Creatinine Ratio 15.0 Normal 8-20 Calcium 9.1 mg/dL Normal 8.6-10.3 Egfr Non- 53.9 >60 Egfr 65.2 >60 1 Laboratory test 06/15/2019 [facility] Magnesium 2.1 mg/dL Normal 1.9-2.7 finding [address] [place] [address] [phone] Lipid Profile 06/12/2019 [facility] Triglycerides 61 mg/dL 2 (Trig/Chol/HDL) [address] [place] [address] [phone] Cholesterol 219 mg/dL 3 HDL Cholesterol 84.6 mg/dL 4 LDL Cholesterol 122 mg/dL 5 Basic Metabolic 04/26/2019 [facility] Sodium 137 mmol/L Normal 135-145 Panel [address] [place] [address] [phone] Potassium 4.4 mmol/L Normal 3.5-5.0 Chloride 101 mmol/L Normal 101-111 Co2 Carbon Dioxide 30 mmol/L Normal 22-32 Anion Gap 6 mmol/L Normal 2-11 Glucose 103 mg/dL High 70-100 Blood Urea Nitrogen 17 mg/dL Normal 6-24 Creatinine 0.88 mg/dL Normal 0.51-0.95 BUN/Creatinine Ratio 19.3 Normal 8-20 Calcium 9.2 mg/dL Normal 8.6-10.3 Egfr Non- 62.5 >60 Egfr 75.6 >60 6 Laboratory test 04/26/2019 [facility] Magnesium 2.4 mg/dL Normal 1.9-2.7 finding [address] [facility] [place] [address] [phone] Influenza A & B 02/16/2019 [facility] Influenza A NEGATIVE Negative [address] [place] [address] [phone] Influenza B Molecular NEGATIVE Negative Urine Culture And 01/26/2019 [facility] Urine Culture SEE RESULT [address] [place] [address] [phone] 1 Because ethnic data is not always [...] 5 Kidney failure <15 (or dialysis) 7 Bilingual Administrative Assistant: [id number] 8 SEE RESULT BELOW Name: AMPARO CALVERT : [address]: Andrew Chapman NP Acct: [id number] Unit: [id number] AGE: 78 Location: [facility] Re01/26/19 SEX: F Status: REG REF SPEC: [id number] SHAHLA: 01/26/[address] [facility] [address]: Andrew Chapman NP REQ: [id number] RECD: 01/26/19 STATUS: COMP _ SOURCE: URINE SPDESC: ORDERED: Urine Culture COMMENTS: [id number] Urine Source: Random Procedure Result Reported Site Urine Culture Final 01/28/19- 0941 ML No Growth (<1,000 CFU/mL) * ML - Main Lab . END OF REPORT DEPARTMENT OF PATHOLOGY, [address] [place] [address] Hilton Barker M.D. Director [facility] # [id number] Procedures Date Code Description Status 07/27/2019 88612 Pulmonary Stress Testing, Inc Measurement Heart Rate, Completed Oximetry 07/03/2019 95967 EKG Tracing & Interpretation Completed 05/10/2019 82750 Inj/Aspir Major JT Or Bursa W/ US Completed 07/03/2018 [id number] Bone Mineral Density Test Completed 07/03/2018 [id number] Mammogram Completed 07/01/2017 [id number] Mammogram Completed 06/18/2016 [id number] Mammogram Completed 12/06/2014 58182067 Mammogram Completed 02/27/2013 [id number] Colonoscopy Completed 06/10/2011 884544858 Bone Mineral Density Test Completed 06/10/2011 [id number] Mammogram Completed 11/04/2005 40754908 Mammogram Completed Medical Devices Description No Information Available Encounters Type Date Location Provider Dx Diagnosis Office Visit 07/03/2019 [facility] Oziel Flores I10 Essential ( primary) 10:40a Zoie Slaughter hypertension E78.00 Pure hypercholesterolemia, unspecified I35.0 Nonrheumatic aortic (valve) stenosis Office Visit 06/15/2019 11:40a [facility] Internal Apryl Llanes, R25.2 Cramp and spasm Medicine - Ccmob N.P. Office Visit 04/10/2019 10:30a [facility] Leslee S. I35.0 Nonrheumatic Of Clinical Cytopathologist Gilberto N.P. aortic (valve) stenosis I10 Essential (primary) hypertension I45.10 Unspecified right bundle-branch block I25.2 Old myocardial infarction E78.00 Pure hypercholesterolemia, unspecified R60.9 Edema, unspecified Office Visit 02/16/2019 4:20p [facility] Internal Apryl Llanes, J45.41 Moderate Medicine - N.P. persistent asthma Ccmob with (acute) exacerbation H10.89 Other conjunctivitis Office Visit 01/26/2019 1:00p [facility] Internal Andrew Chapman, Z01.818 Encounter for other Medicine - POULTRY BREEDER preprocedural Ccmob examination M19.011 Primary osteoarthritis, right shoulder I10 Essential (primary) hypertension I35.0 Nonrheumatic aortic (valve) stenosis I26.99 Other pulmonary embolism without acute cor pulmonale J45.909 Unspecified asthma, uncomplicated G47.33 Obstructive sleep apnea (adult) (pediatric) Assessments Date Code Description Provider 07/27/2019 J45.30 Mild persistent asthma, uncomplicated Kirstin Watson, OSCAR 07/27/2019 Z86.711 Personal history of pulmonary embolism [...] Encounter for screening mammogram for Apryl Llanes N.P. malignant neoplasm of breast 06/25/2019 I10 [...] gangrene 06/15/2019 R25.2 Cramp and spasm Apryl Leon, N.P. 05/10/2019 M19.011 Primary osteoarthritis, right shoulder Summer Buckley MD 04/10/2019 I35.0 Nonrheumatic aortic (valve) stenosis Leslee Macias N.P. 04/10/2019 I10 Essential (primary) hypertension Leslee Macias N.P. 04/10/2019 I45.10 Unspecified right bundle-branch block Leslee Macias N.P. 04/10/2019 I25.2 Old myocardial infarction Leslee Macias N.P. 04/10/2019 E78.00 Pure hypercholesterolemia, unspecified Leslee Macias, N.P. 04/10/2019 R60.9 Edema, unspecified Leslee Macias N.P. 02/16/2019 M19.011 Primary osteoarthritis, right shoulder Summer Buckley MD 02/16/2019 J45.41 Moderate persistent asthma with (acute) Apryl Varn, N.P. exacerbation 02/16/2019 H10.89 Other conjunctivitis Apryl Llanes, N.P. 02/16/2019 Z01.818 Encounter for other preprocedural Zaneb Yaseen, MD examination 01/26/2019 Z01.818 Encounter for other preprocedural Andrew Chapman NP examination 01/26/2019 M19.011 Primary osteoarthritis, right shoulder Andrew Adela, POULTRY BREEDER 01/26/2019 I10 Essential (primary) hypertension Andrew Adela POULTRY BREEDER 01/26/2019 I35.0 Nonrheumatic aortic (valve) stenosis Andrew Adela POULTRY BREEDER 01/26/2019 I26.99 Other pulmonary embolism without acute Andrew Adela POULTRY BREEDER cor pulmonale 01/26/2019 J45.909 Unspecified asthma, uncomplicated Andrew Adela, POULTRY BREEDER 01/26/2019 G47.33 Obstructive sleep apnea (adult) Andrew Chapman NP (pediatric) Plan of Treatment Future Appointment(s):01/25/2020 10:30 am - Kirstin Watson NP at [facility]08/14/2019 1:15 pm - Summer Buckley MD at [facility] at [id number]/03/2019 10:00 am - [place] ECHO Schedule at [facility]12/25/2019 2:00 pm - Apryl Llanes NDavid at [facility] Internal Medicine - Ccmob07/27/2019 - Kirstin Watson NPJ45.30 Mild persistent asthma , uncomplicatedFollow up:6 kgkauoH02.711 Personal history of pulmonary kknbvkrdM87.02 HypoxemiaNew Medication:D/C Portable Concentrator - Patient no longer requires supplemental oxygen with exertion and can return portable concentrator. She does still require nocturnal o2.G47.33 Obstructive sleep apnea (adult) (pediatric)G47.00 Insomnia, unspecifiedRecommendations:If you are unable to fall asleep after about 20 minutes, try getting up out of bed and doing a quietactivity in another room until you feel tired, then go back to bed. Functional Status Description No Information Available Mental Status Description No Information Available Referrals Description No Information Available
[2019-09-18] MEDS ORDERED: Famotidine IV* 10 MG/ML 2 ML (20 mg) ONE (06:11)
[2019-09-18] MEDS ORDERED: Buffered Lidocaine 1% SYRIN* 1 ML/SYRINGE INTRADERM ONE (06:11)
[2019-09-18] MEDS ORDERED: ceFAZolin 2 GM in NS PREMIX(*) 2 GM/100 ML BAG IVPB ONE (06:11)
[2019-09-18] MEDS ORDERED: ROPIVACAINE 5 MG/ML 30 ML BTL (0.5%) ONE (07:10)
[2019-09-18] MEDS ORDERED: Lidocaine 1% MPF ** 5 ML VIAL ONE (07:10)
[2019-09-18] MEDS ORDERED: fentaNYL* 50 MCG/ML 2 ML VIAL (100 MCG VIAL) ONE (07:26)
[2019-09-18] MEDS ORDERED: Midazolam* 1 MG/ML 5 ML VIAL (5 MG) ONE (07:26)
[2019-09-18] MEDS ORDERED: Midazolam* 1 MG/ML 2 ML VIAL (2 MG) ONE (08:28)
[2019-09-18] MEDS ORDERED: Propofol* 10 MG/ML 20 ML BTL ONE ×2 (08:29)
[2019-09-18] MEDS ORDERED: Ondansetron INJ* 2 MG/ML VIAL ONE (08:29)
[2019-09-18] MEDS ORDERED: Lidocaine 2% PF * 5 ML VIAL ONE (08:29)
[2019-09-18] MEDS ORDERED: Dexamethasone IV* 4 MG/ML 1 ML (4 MG) ONE (08:29)
[2019-09-18] MEDS ORDERED: DiMENhydriNATE IV* 50 MG/ML VIAL ONE (08:29)
[2019-09-18] MEDS ORDERED: Ketorolac INJ* 30 MG/ML 1 ML VIAL ONE (08:29)
[2019-09-18] MEDS ORDERED: Succinylcholine* 20 MG/ML 10 ML VIAL ONE (08:29)
[2019-09-18] MEDS ORDERED: KETAMINE HCL* 50 MG/ML 10 ML VIAL ONE (08:34)
[2019-09-18] MEDS ORDERED: Rocuronium* 10 MG/ML VIAL ONE (08:35)
[2019-09-18] MEDS ORDERED: DiMENhydriNATE IV* 50 MG/ML VIAL IV PUSH PRN (08:36)
[2019-09-18] MEDS ORDERED: Naloxone* 0.4 MG/ML 1 ML VIAL IV PRN (08:36)
[2019-09-18] MEDS ORDERED: Gabapentin CAP(*) 100 MG PO ONE (08:46)
[2019-09-18] MEDS ORDERED: Sugammadex * 200 MG/2 ML VIAL IV PUSH ONE ×2 (09:18→09:21)
[2019-09-18] MEDS ORDERED: Ondansetron ODT TAB* 4 MG PO PRN (09:36)
[2019-09-18] MEDS ORDERED: Cyclobenzaprine TAB* 10 MG PO PRN (09:36)
[2019-09-18] MEDS ORDERED: Ondansetron INJ* 2 MG/ML VIAL IV PRN (09:36)
[2019-09-18] MEDS ORDERED: diPHENhydraMINE PO* 25 MG PO PRN (09:36)
[2019-09-18] MEDS ORDERED: Magnesium Hydroxide LIQ* 30 ML UDC PO PRN (09:36)
[2019-09-18] MEDS ORDERED: diPHENhydraMINE IV* 50 MG/ML 1 ml VIAL (BENADRYL) IV PRN (09:36)
[2019-09-18] MEDS ORDERED: Temazepam CAP* 15 MG PO PRN (09:36)
[2019-09-18] MEDS ORDERED: Polyethylene Glycol 3350* 17 GM PACKET PO PRN (09:36)
[2019-09-18] MEDS ORDERED: Morphine INJ* 2 MG/ML 1 ML SYRINGE (TWO MG - NEW SYRINGE VERSION) IV PRN (09:36)
[2019-09-18] MEDS ORDERED: HYDROmorphone INJ* 0.5 MG/0.5 ML SYRINGE IV SLOW PU PRN (09:48)
[2019-09-18] MEDS ORDERED: HYDROmorphone INJ1* 1 MG/ML SYRINGE ONE (09:53)
[2019-09-18] MEDS ORDERED: Gabapentin CAP(*) 100 MG ONE (09:53)
[2019-09-18] MEDS: HYDROmorphone INJ* 0.5 MG/0.5 ML SYRINGE IV SLOW PU PRN ×2 (09:58→10:13)
[2019-09-18] MEDS ORDERED: ceFAZolin 1 GM ADVAN(*) 1 GM in NS 0.9% 50 ML* 50 ML IVPB SCH (10:00)
[2019-09-18] MEDS: HYDROcodone/ACETAMIN 5-325 MG* 1 TAB PO PRN ×2 (12:40→20:47)
[2019-09-18] MEDS: Acetaminophen TAB* 325 MG PO SCH ×2 (12:56→21:31)
[2019-09-18] MEDS: ceFAZolin 1 GM ADVAN(*) 1 GM in NS 0.9% 50 ML* 50 ML IVPB SCH ×2 (15:51→23:55)
[2019-09-18] MEDS: Docusate CAP* 100 MG PO SCH (21:32)
[2019-09-18] MEDS: Magnesium Hydroxide LIQ* 30 ML UDC PO SCH (21:32)
[2019-09-18] MEDS: traMADol TAB* 50 MG PO PRN (21:37)
--- NOTE | 2019-09-18 21:40 | CONS ---
CC: Dr. Maryjo Dickerson * MEDICINE CONSULTATION: DATE OF CONSULT: 09/18/19 PRIMARY CARE PROVIDER: Dr. Maryjo Dickerson. REQUESTING PHYSICIAN: Dr. Summer Buckley. CONSULTING PHYSICIAN: Dr. Charley Lerma * (as dictated by Julio Rosales NP) REASON FOR CONSULTATION: Co-medical management in the postoperative period. HISTORY OF PRESENT ILLNESS: Ms. Burns is a 78-year-old female admitted today for an elective right shoulder total reverse. She has failed conservative measures and has elected for this procedure. She currently reports feeling tired from the anesthesia but denies having any pain. She denies any chest pain , shortness of breath, or recent illness prior to coming in today. She states that she had some mild congestion and runny nose, but nothing else out of the ordinary. No other recent concerns. PAST MEDICAL HISTORY: Significant for: 1. History of pulmonary embolus, on Eliquis. 2. Hypertension. 3. Diastolic heart failure. 4. Aortic stenosis. 5. Dyspnea with exertion. 6. Bilateral lower extremity edema. 7. Hypothyroidism. 8. Osteoarthritis. 9. Palpitations. 10. Hypercholesterolemia. 11. Depression. 12. Anxiety. 13. Seasonal allergies. 14. GERD. 15. Hiatal hernia. 16. Obstructive sleep apnea, on CPAP. 17. Carotid artery disease. PAST SURGICAL HISTORY: Includes: 1. Cholecystectomy. 2. Trigger finger release x3. 3. Carpal tunnel release. 4. Eyelid surgery. 5. Bilateral total knee replacement. 6. Etta fundoplication. 7. Left shoulder surgery. 8. Cataract surgery. HOME MEDICATIONS: 1. Gabapentin 100 mg 1 capsule at dinnertime and 2 capsules before bed. 2. Acetaminophen 650 mg b.i.d. 3. Verapamil ER 180 mg q.a.m. 4. Torsemide 20 mg q.a.m. 5. Spironolactone 50 mg q.a.m. 6. Zetia 10 mg q.a.m. 7. Vitamin B12 1000 mcg q.a.m. 8. Cetirizine 10 mg q.a.m. p.r.n. 9. Ascorbic acid 1000 mg q.a.m. 10. Amlodipine 5 mg q.a.m. 11. Calcium, magnesium, vitamin D3 supplement 1 tab q.h.s. 12. Apixaban 2.5 mg b.i.d. ALLERGIES: Include ATENOLOL, ATORVASTATIN, CLONIDINE, DILTIAZEM, HYDRALAZINE, HYDROCHLOROTHIAZIDE, OXYCODONE, ROSUVASTATIN, and PROVERA. FAMILY HISTORY: Positive for diabetes, heart disease, cancer, hypertension, rheumatoid arthritis and a sister with a history of a DVT. Her father from coronary artery disease and mother from COPD. SOCIAL HISTORY: She denies smoking history. Alcohol use, she reports having 1 to 3 drinks a night and usually has robyn des with whiskey; she has been hospitalized multiple times and denies having concern for ETOH withdrawal in the past. Denies any history of drug use. 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 She is . She lives with her , George Burns, who is her surrogate decision maker and healthcare proxy. REVIEW OF SYSTEMS: A 12-point review of systems was completed. All pertinent positives and negatives as per HPI. All those not mentioned are negative. PHYSICAL EXAMINATION: Vital Signs: Temperature 97.4, heart rate 53, respiratory rate 18, blood pressure 125/43, O2 saturation 96% on room air. HEENT: Head is atraumatic, normocephalic. Pupils are equal and round. Extraocular movements are intact. Oral mucosa is moist. Neck is supple. Cardiac: Regular rate and rhythm. Normal S1, S2 heart sounds. Systolic murmur noted, 2/6. There is 1+ bilateral lower extremity edema. Pedal pulses are symmetric and present bilaterally in the radial dorsalis pedis and posterior tibial sites. Lungs are clear to auscultation bilaterally. Abdomen is soft, nontender, nondistended. Bowel sounds are normoactive. Musculoskeletal: Right upper extremity in sling. There is a Hemovac drain with bloody drainage. Distal movement of the right hand is intact. Other extremities with full range of motion. Neuro: She is alert and oriented x3. No focal deficits. Answers questions appropriately. Speech is clear. ASSESSMENT AND PLAN: This is a 78-year-old female with a past medical history significant for history of pulmonary embolism, diastolic heart dysfunction, aortic stenosis, hypertension, hypothyroidism, hypercholesterolemia, depression , anxiety who presents today for elective right total shoulder reverse. She is postop day 0. Plan is as follows: 1. Right shoulder total reverse. Postop day 0. Pain management as per Ortho, PT/OT. 2. History of pulmonary embolus. She is normally on Eliquis. She follows with Dr. Gomez as an outpatient. She is to restart her Eliquis tomorrow. 3. Hypertension. Blood pressure under good control. She is on multiple agents including torsemide, verapamil, amlodipine, spironolactone. Postoperatively, I would recommend continuing amlodipine and verapamil. We will hold her spironolactone, but continue her torsemide. Check weights. We will place hold parameters on her torsemide and verapamil in the event that her pressures are soft tomorrow. 4. History of diastolic congestive heart failure. She appears euvolemic. Again, we will continue her torsemide with hold parameters, but we will carefully monitor her fluid status given that she also has concurrent aortic stenosis, carefully monitor I's and O's and again, we will monitor daily weights. 5. Hypothyroidism. She is not on levothyroxine. We will add a TSH to tomorrow 's labs. 6. Hypercholesterolemia. She does not tolerate statins. She can continue her home Zetia. 7. Depression, anxiety. Provide supportive care. She is not on any daily medications for this. 8. Obstructive Sleep Apnea. May use home CPAP. 9. DVT prophylaxis: Per ortho. She will resume her home Eliquis. 10. Code status: She is a full code. TIME SPENT: Approximately 45 minutes was spent on this consult with more than half the time spent [id number] with the patient obtaining history and physical , performing physical examination, and reviewing the plan of care. Plan of care was also reviewed with my attending, Dr. Lerma, who is in agreement. JULIO ROSALES, OSCAR [id number]/CPS #: [id number] PARUL
[2019-09-19] MEDS: HYDROcodone/ACETAMIN 5-325 MG* 1 TAB PO PRN ×3 (00:47→12:47)
[2019-09-19] MEDS: Acetaminophen TAB* 325 MG PO SCH ×2 (05:31→12:25)
[2019-09-19 06:23] LABS: Hematocrit 31 % (35-47); Hemoglobin 10.9 g/dL (12.0-16.0); Platelet Count 186 10^3/uL (150-450)
[2019-09-19 06:38] LABS: BUN/Creatinine Ratio 21.6 (8-20); Calcium 8.7 mg/dL (8.6-10.3); EGFR African American 92.3 (>60); EGFR Non-African American 76.3 (>60); Potassium 4.1 mmol/L (3.5-5.0)
[2019-09-19 07:12] LABS: TSH (Thyroid Stimulating Horm) 0.83 mcIU/mL (0.34-5.60)
[2019-09-19] MEDS: ceFAZolin 1 GM ADVAN(*) 1 GM in NS 0.9% 50 ML* 50 ML IVPB SCH (08:06)
[2019-09-19] MEDS ORDERED: Torsemide TAB* 20 MG PO SCH (09:00)
[2019-09-19] MEDS ORDERED: Verapamil SR CAP* 180 MG PO SCH (09:00)
[2019-09-19] MEDS ORDERED: Spironolactone TAB* 25 MG PO SCH (09:00)
[2019-09-19] MEDS: Docusate CAP* 100 MG PO SCH ×2 (09:25→09:44)
[2019-09-19] MEDS: Ezetimibe TAB* 10 MG PO SCH ×2 (09:25→09:44)
[2019-09-19] MEDS: Verapamil SR CAP* 180 MG PO SCH ×2 (09:25→09:50)
[2019-09-19] MEDS: Vitamin THERAPEUTIC TAB PO SCH ×2 (09:25→09:44)
[2019-09-19] MEDS: traMADol TAB* 50 MG PO PRN ×2 (09:26→09:44)
[2019-09-19] MEDS: amLODIPine TAB* 5 MG PO SCH ×2 (09:26→09:44)
[2019-09-19] MEDS: Torsemide TAB* 20 MG PO SCH ×2 (09:26→09:49)
[2019-09-19] MEDS: Magnesium Hydroxide LIQ* 30 ML UDC PO SCH ×2 (09:26→09:43)
[2019-09-19] MEDS: Apixaban* 2.5 MG TAB PO SCH ×2 (09:26→09:44)
--- NOTE | 2019-09-19 11:37 | DS ---
Orthopedic Discharge Summary - Discharge Summary Date of Admission:09/18/19 Date of Discharge: 09/19/19 Date of Surgery: 09/18/19 Attending Orthopedic Provider: Dr. Buckley Pre-operative Diagnosis: Right shoulder osteoarthritis Operative Procedure: Right total shoulder arthroplasty Disposition of Patient: Home Condition of Patient: Stable History: AMPARO BYRNE is a 78 year old F with years of increasingly severe right shoulder pain. Patient has failed conservative management and has elected to undergo a Right total shoulder arthroplasty. Hospital Course: AMPARO was admitted to [facility] on 09/18/19. Patient underwent a Right total shoulder arthroplasty without complication followed by a brief recovery in PACU and transfer to the Short Stay Surgical Unit in stable condition. Our hospitalist service, physical therapy and occupational therapy also participated in this patients care. Post-op day 1: patient was alert and in no acute distress. Dressing and drain were clean, dry and intact. Operative extremity with AROM in right wrist and hand, sensation intact to light touch distally, 2+ radial . Drain was removed without incident. Patient was deemed to be medically and orthopedically stable for discharge. Physical therapy goals were met. Home Medications Medication Instructions Recorded Confirmed Type Gabapentin CAP(*) [Neurontin 100 1 - 3 cap PO BEDTIME 06/03/16 09/18/19 History mg CAP(*)] Spironolactone TAB* [Aldactone TAB 50 mg PO QAM 06/03/16 09/18/19 History 25 MG*] Verapamil HCl [Verapamil ER] 180 mg PO QAM 06/03/16 09/18/19 History Acetaminophen [Qc Acetaminophen 8 2 tab PO BID 09/07/19 09/18/19 History Hours] Amlodipine Besylate [Norvasc] 5 mg PO QAM 09/07/19 09/18/19 History Apixaban* [Eliquis*] 2.5 mg PO BID 09/07/19 09/07/19 History Ascorbic Acid [Vitamin C] 1,000 mg PO QAM 09/07/19 09/18/19 History Calcium Carb/Magnesium Oxid/D3 1 tab PO BEDTIME 09/07/19 09/07/19 History [Calcium/Magnesium/Vitamin] Cetirizine* [ZyrTEC 10 MG TAB*] 10 mg PO QAM PRN 09/07/19 09/18/19 History Cyanocobalamin TAB* [Vitamin B12 1,000 mcg PO QAM 09/07/19 09/18/19 History TAB*] Ezetimibe TAB* [Zetia TAB*] 10 mg PO QAM 09/07/19 09/18/19 History Torsemide TAB* [Demadex*] 20 mg PO QAM 09/07/19 09/18/19 History Discharge Instructions following Orthopedic Surgery: Right total shoulder replacement Activity: * Non-Weight Bearing on right arm. Okay to flex and extend elbow, wrist and hand up to 5 times daily. * Continue physical therapy and occupational therapy exercises as shown Wound care: * OK to remove dressing and shower on post-op day 3. No bathing, swimming, or submerging wound. * Use gentle soap, pat dry. Cover with gauze, HARSHAL wrap or tape. Call Orthopedic office for: * Increased drainage * Redness * Increased pain * Fever Go to ER with shortness of breath or chest pain. Diet: * Regular diet * Increase fluids and fiber to prevent constipation. * Continue to use stool softeners, call office if no bowel motion within 48 hours. Medications: Patient already has. See Home Medication List in your packet for medications that you should take after discharge. Eliquis Dosing as per usual Pain Control: [place] Dosin/325 mg 1-2 tabs by mouth every 6 hours as needed for pain. Maximum of 8 tabs per day. Please note that [place] contains Tylenol (acetaminophen). Maximum daily dose of Tylenol is 4000 mg from all sources. Antibiotics are required prior to any dental work. FOLLOW UP: Follow up with Dr. Buckley Within 10-14 days, call for appointment Please call our office with any questions or concerns ([phone])
[2019-09-19 11:47] VITALS: BP 125/52
[2019-09-20] MEDS ORDERED: Spironolactone TAB* 25 MG PO SCH (09:00)
[2019-09-20] MEDS ORDERED: Bisacodyl SUPP* 10 MG SUPP PR PRN (09:36)
--- NOTE | 2019-09-20 12:00 | OP ---
CC: PCP, Apryl Llanes NP * DATE OF OPERATION: 09/18/19 - ROOM #332 DATE OF : 44 SURGEON: Summer Buckley MD [employer] MACHINE OPERATOR: SIMIN Wilburn. An itinerant teacher assistant was needed for the entirety of the case to help with positioning, retraction, and was utilized throughout all portions of the case. ANESTHESIOLOGIST: Dr. Champion. ANESTHESIA: General, interscalene block. PRE-OP DIAGNOSIS: Right shoulder end-stage glenohumeral arthritis with rotator cuff arthropathy and pseudoparalysis. POST-OP DIAGNOSIS: Right shoulder end-stage glenohumeral arthritis with rotator cuff arthropathy and pseudoparalysis. OPERATIVE PROCEDURE: Right shoulder reverse arthroplasty. COMPLICATIONS: None. ESTIMATED BLOOD LOSS: Minimal. IMPLANTS: Aequalis Reversed II 36 mm glenosphere with a 25 x 35, 30+ base plate , 3 interlocking screws, Aequalis Ascend Flex size 4B stem with a centered tray and +9 poly. OUTPUT: Drains x1. DISPOSITION: Stable. ESTIMATED BLOOD LOSS: 200. INDICATIONS: Nelly Burns is a 78-year-old female who presents with persistent right shoulder end-stage glenohumeral arthritis. She had a previous reverse on her left side that she did well with about 2 years ago. She has elected to proceed with surgical treatment. Risks and benefits were discussed at length including, but not limited to, bleeding; infection; damage to nerves, vessels, or surrounding structures; wound nonhealing; persistent pain; need for further surgery; scarring; stiffness; incomplete relief of symptoms; risks of anesthesia; risks for dislocation or fracture. DESCRIPTION OF PROCEDURE: The patient was greeted in the preoperative area by the attending surgeon. Correct extremity was marked and consent was confirmed. The patient underwent interscalene nerve block, after which she was brought back to the operating suite where she was placed in supine position on the operating table. She then underwent general anesthesia with endotracheal intubation, after which she was positioned [facility] the [facility] position. The right arm was prepped and draped in the usual sterile fashion beginning with chlorhexidine soap, scrub, and alcohol wipe and a final prep with ChloraPrep. After appropriate surgical pause indicating site, side, procedure, and administration of antibiotics, the standard deltopectoral incision was then made using 15 blade. Soft tissues were carefully dissected to expose the deltopectoral interval. Once this was identified, the cephalic vein was taken laterally. Abundant subdeltoid adhesions were then removed and released. The pec was exposed, the proximal 1 to 1.5 cm was then released. The biceps was identified. She had a very large ganglion type cyst that was very large. Releasing the adhesions around this proved to be somewhat challenging. We ended up rupturing it, so we can remove the synovial fluid to get better access. It was difficult to visualize the shoulder otherwise. The biceps was identified and taken proximally to identify the subscap. This was then released in subscap peel type fashion. There was evidence of full-thickness tearing of the supraspinatus. The head was then exposed. There was significant arthritis with a large amount of anterior and inferior osteophytes, which draped around the inferior neck. This was then carefully released with care not to damage the cortical bone. The head was exposed and any remnants of the cuff was released and the shoulder was mobilized. The provisional neck cut was then made using a sagittal saw. The bone quality was fairly poor. The starting awl was then used to find the canal and broaching then began. A size 4B was found to have a good fit. The calcar reamer was used to ream this and then the protection plate was placed and attention was directed to the glenoid. The posterior retractor was placed into glenoid. There was abundant thick synovitis that was present. The anterior, posterior, and superior labrum were removed as well as any remnant of the biceps. The superior middle and inferior glenohumeral ligaments were also released. The glenoid was exposed. The anterior neck retractor was then placed. The glenoid had grade 4 changes. After the inferior aspect was exposed, the guide was then placed to allow for inferior placement of the guidepin. The size 24 mm reamer was then used to ream , then the footprint ream was used on hand ream for 36 mm glenosphere. The 8 mm cannulated guide drill and then a 6.5 mm guide was drilled, a size 35 was chosen and the drill hole was tapped. The final implant was brought to the field and placed with excellent purchase. Three locking screws were then placed for added fixation. The glenosphere was then impacted and placed with excellent purchase. Attention was then directed to the humerus. The stem was checked again and found to be well seated. The 0 offset tray was placed with a +6 poly. This was reduced rather easily. There was a bit of a shuck, therefore a +9 was chosen. This is similar to what she had on the other side. This fit much more appropriately and I was able to forward flexion to about 150, abduct to about 80, externally rotate to about 45. The shoulder was then dislocated and the final implants were then chosen and prepared on the back table by the attending surgeon. This was impacted in position. The external rotation guide was set to about 20 degrees. The shoulder was then reduced, taken through range of motion which was symmetric. The wounds were then copiously irrigated with sterile saline. Intraarticular drain was then placed and then it was irrigated again and delto-pectoral interval was then closed using #2 Ethibond. The skin was closed in layers with 3-0 Monocryl. Sterile dressings were applied. A Cryo/Cuff and UltraSling were applied. She was awoken from anesthesia and transferred to PACU in stable condition. POSTOPERATIVE PLAN: She will be nonweightbearing for 6 weeks. She will be admitted and then drain will come out on postop day #1. She will be discharged on pain medication. She will get 24 hours of postoperative antibiotics. She will be on Lovenox in-house and restart her Eliquis tomorrow. I will see the patient back in 10 to 14 days postop. [id number]/CPS #: [id number] PARUL
== END 2019-09-19 13:25 | disposition home or self-care (01) | DRG 483 ==
LOC: AA 09-18 06:00 → SSU 09-18 11:25
PROVIDERS: ADMIT Orthopaedic Surgery; ATTEND Orthopaedic Surgery
PROC: 0RRJ00Z Replacement of Right Shoulder Joint with Reverse Ball and Socket Synthetic Substitute, Open Approach (ICD-10-PCS; principal; 2019-09-18 07:30)
DX: M19.011 Primary osteoarthritis, right shoulder (principal); I50.30 Unspecified diastolic (congestive) heart failure; Z68.41 Body mass index [BMI] 40.0-44.9, adult; I11.0 Hypertensive heart disease with heart failure; I35.0 Nonrheumatic aortic (valve) stenosis; E03.9 Hypothyroidism, unspecified; E78.00 Pure hypercholesterolemia, unspecified; F32.9 Major depressive disorder, single episode, unspecified; G47.33 Obstructive sleep apnea (adult) (pediatric); I25.10 Atherosclerotic heart disease of native coronary artery without angina pectoris; F41.9 Anxiety disorder, unspecified; M54.12 Radiculopathy, cervical region; R06.00 Dyspnea, unspecified; K21.9 Gastro-esophageal reflux disease without esophagitis; K44.9 Diaphragmatic hernia without obstruction or gangrene; M67.411 Ganglion, right shoulder; G90.01 Carotid sinus syncope; E66.9 Obesity, unspecified; M25.711 Osteophyte, right shoulder; J45.909 Unspecified asthma, uncomplicated; Z96.653 Presence of artificial knee joint, bilateral; Z96.612 Presence of left artificial shoulder joint; Z86.711 Personal history of pulmonary embolism; Z83.3 Family history of diabetes mellitus; Z82.49 Family history of ischemic heart disease and other diseases of the circulatory system; Z82.61 Family history of arthritis; Z80.9 Family history of malignant neoplasm, unspecified; Z82.5 Family history of asthma and other chronic lower respiratory diseases; Z79.01 Long term (current) use of anticoagulants; Z79.1 Long term (current) use of non-steroidal anti-inflammatories (NSAID); Z79.899 Other long term (current) drug therapy; Z88.8 Allergy status to other drugs, medicaments and biological substances; Z99.89 Dependence on other enabling machines and devices
CPT/HCPCS: 36415; 80048; 84443; 85014; 85018; 85049; A9270-GY; C1713; C1776; J0330; J0690; J1100; J1170; J1240; J1885; J2250; J2405; J2704; J2795; J3010